=== PATIENT | male | born 1945 | race Caucasian/White ===

== ENCOUNTER 2018-07-20 10:35 | Outpatient (REF) | payer MEDICARE, SELFPAY ==
[2018-07-20 20:52] LABS: ALT 52 U/L (12-78); AST 29 U/L (15-37); Albumin 3.7 g/dL (3.4-5.0); Alkaline Phosphatase 57 U/L (46-116); Anion Gap 5.2 mmol/L (3-11); BUN 22 mg/dL (7-18); Bilirubin, Total 0.6 mg/dL (0.2-1.0); CO2 29.8 mmol/L (21.0-32.0); CREATININE 1.25 mg/dL (0.70-1.30); Calcium 9.1 mg/dL (8.5-10.1); Chloride 101 mmol/L (98-107); Cholesterol 146 mg/dL (50-200); Estimated GFR 56.94 (mL/min/1.73m2); Glucose 94 mg/dL (70-100); HDL Cholesterol 46 mg/dL (40-60); LDL CHOLESTEROL 90 mg/dL (<100); Magnesium 1.9 mg/dL (1.8-2.4); Potassium 4.4 mmol/L (3.5-5.1); Sodium 136 mmol/L (136-145); Total Protein 7.2 g/dL (6.4-8.2); Triglyceride 131 mg/dL (30-150)
== END 2018-07-20 10:55 ==
LOC: NCHCN 10:35
PROVIDERS: PCP Nurse Practitioner Family; Visit Provider Specialist/Technologist Athletic Trainer
DX: I10 Essential (primary) hypertension (principal); E78.5 Hyperlipidemia, unspecified; K21.9 Gastro-esophageal reflux disease without esophagitis
CPT/HCPCS: 80053; 80061; 83721; 83735

== ENCOUNTER 2019-10-18 09:36 | Outpatient (REF) | payer OTHER, SELFPAY ==
[2019-10-18 20:58] LABS: HCT 46.4 % (40.0-50.0); Mean Corp. HGB Concentration 32.3 g/dL (32.0-36.0); Mean Corpuscular Volume 95.9 fL (80-95); Mean Platelet Volume 11.9 fL (8.0-11.0); Platelet Count 235 x1000/uL (130-400); RBC 4.84 m/cumm (4.50-6.00); RBC Distribution Width 12.7 % (11.8-14.1); White Blood Cell Count 5.53 k/cumm (4.4-10.8)
[2019-10-18 21:03] LABS: ALT 36 U/L (16-63); AST 22 U/L (15-37); Albumin 3.7 g/dL (3.4-5.0); Alkaline Phosphatase 52 U/L (46-116); Anion Gap 5.2 mmol/L (3-11); BUN 18 mg/dL (7-18); Bilirubin, Total 0.5 mg/dL (0.2-1.0); CO2 31.8 mmol/L (21.0-32.0); CREATININE 1.21 mg/dL (0.70-1.30); Calcium 9.3 mg/dL (8.5-10.1); Calculated LDL 85 mg/dL; Chloride 100 mmol/L (98-107); Cholesterol 152 mg/dL (<200); Estimated GFR 58.95 (mL/min/1.73m2); Glucose 106 mg/dL (74-106); HDL Cholesterol 48 mg/dL (40-60); Magnesium 1.9 mg/dL (1.8-2.4); Potassium 4.6 mmol/L (3.5-5.1); Sodium 137 mmol/L (136-145); Total Protein 7.2 g/dL (6.4-8.2); Triglyceride 95 mg/dL (<150)
[2019-10-22 11:21] LABS: PSA, Screening 0.4 ng/mL (0.0-6.5)
== END 2019-10-18 09:56 ==
LOC: NCHCN 09:36
PROVIDERS: PCP Specialist/Technologist Athletic Trainer; Visit Provider Specialist/Technologist Athletic Trainer
DX: I10 Essential (primary) hypertension (principal); E78.5 Hyperlipidemia, unspecified; K21.9 Gastro-esophageal reflux disease without esophagitis; N40.0 Benign prostatic hyperplasia without lower urinary tract symptoms; Z12.5 Encounter for screening for malignant neoplasm of prostate
CPT/HCPCS: 80053; 80061; 84153; 85027; 83735

== ENCOUNTER 2020-10-15 14:08 | Outpatient (REF) | payer OTHER, SELFPAY ==
[2020-10-17 01:47] LABS: COVID-19 RT-PCR UVMMC Result Positive (Negative)
== END 2020-10-15 14:28 ==
LOC: NCHCN 14:08
PROVIDERS: PCP Specialist/Technologist Athletic Trainer; Visit Provider Nurse Practitioner Family
DX: J06.9 Acute upper respiratory infection, unspecified (principal)
CPT/HCPCS: U0003

== ENCOUNTER 2020-11-19 13:30 | Outpatient (REF) | payer OTHER, SELFPAY ==
[2020-11-19 20:38] LABS: HCT 46.5 % (40.0-50.0); HGB 15.6 g/dL (13.5-17.5); MCH 31.5 pg (27.0-33.0); MCHC 33.5 % (32.0-36.0); MCV 93.8 fL (80-95); MPV 11.7 fL (8.0-11.0); Platelet Count 231 10^3/uL (130-400); RBC 4.96 10^6/uL (4.36-5.78); RDW 12.5 % (11.8-14.1); RDW-SD 43.1 fL; WBC 6.21 10^3/uL (4.4-10.8)
[2020-11-19 21:03] LABS: Hemoglobin A1C 6.1 % (<5.7)
[2020-11-19 21:11] LABS: Anion Gap 8.7 mmol/L (3-11); BUN 18 mg/dL (7-18); CO2 27.3 mmol/L (21.0-32.0); CREATININE 1.33 mg/dL (0.70-1.30); Calcium 9.7 mg/dL (8.5-10.1); Calculated LDL 76 mg/dL (<100); Chloride 99 mmol/L (98-107); Cholesterol 152 mg/dL (<200); Estimated GFR 52.71 (mL/min/1.73m2); Glucose 122 mg/dL (74-106); HDL Cholesterol 47 mg/dL (40-60); Potassium 4.3 mmol/L (3.5-5.1); Sodium 135 mmol/L (136-145); Triglyceride 146 mg/dL (<150)
== END 2020-11-19 13:50 ==
LOC: NCHCN 13:30
PROVIDERS: PCP Specialist/Technologist Athletic Trainer; Visit Provider Nurse Practitioner Family
DX: R73.03 Prediabetes (principal); I10 Essential (primary) hypertension; E78.5 Hyperlipidemia, unspecified
CPT/HCPCS: 80048; 80061; 85027; 83036

== ENCOUNTER 2021-11-23 14:57 | Outpatient (REF) | payer MEDICARE, SELFPAY ==
[2021-11-23 14:12] LABS: Anion Gap 7.9 mmol/L (3-11); BUN 17 mg/dL (7-18); CO2 32.1 mmol/L (21.0-32.0); CREATININE 1.2 mg/dL (0.70-1.30); Calcium 9.8 mg/dL (8.5-10.1); Chloride 99 mmol/L (98-107); Estimated GFR 59.18 (mL/min/1.73m2); Glucose 118 mg/dL (74-106); Potassium 4.2 mmol/L (3.5-5.1); Sodium 139 mmol/L (136-145)
[2021-11-23 14:17] LABS: Hemoglobin A1C 6.3 % (<5.7)
[2021-11-23 22:36] LABS: PSA, Screening 0.3 ng/mL (0.0-6.5)
== END 2021-11-23 14:58 | disposition home or self-care (01) ==
LOC: NCHCN 14:57
PROVIDERS: PCP Specialist/Technologist Athletic Trainer; Visit Provider Nurse Practitioner Family
DX: R73.03 Prediabetes (principal); I10 Essential (primary) hypertension; N39.41 Urge incontinence; Z12.5 Encounter for screening for malignant neoplasm of prostate
CPT/HCPCS: 80048; 84153; 83036

== ENCOUNTER 2022-08-23 18:58 | Outpatient (REF) | payer OTHER, SELFPAY ==
[2022-08-23 17:58] LABS: Anion Gap 7.3 mmol/L (3-11); BUN 18 mg/dL (7-18); CO2 30.7 mmol/L (21.0-32.0); CREATININE 1.3 mg/dL (0.70-1.30); Calcium 9.5 mg/dL (8.5-10.1); Chloride 99 mmol/L (98-107); Estimated GFR 57.29 (mL/min/1.73m2); Glucose 105 mg/dL (74-106); Potassium 4.5 mmol/L (3.5-5.1); Sodium 137 mmol/L (136-145)
[2022-08-23 18:19] LABS: Hemoglobin A1C 6.1 % (<5.7)
== END 2022-08-23 18:59 | disposition home or self-care (01) ==
LOC: NCHCN 18:58
PROVIDERS: PCP Specialist/Technologist Athletic Trainer; Visit Provider Nurse Practitioner Family
DX: R73.03 Prediabetes (principal); I10 Essential (primary) hypertension
CPT/HCPCS: 80048; 83036

== ENCOUNTER 2022-08-30 03:36 | Outpatient (CLI) | payer OTHER, SELFPAY ==
[2022-08-30] MEDS: Inhaler, Assist Device 1 EACH MC (09:20)
[2022-08-30] MEDS: Albuterol HFA 18 GM 200 PUFF INH IH (09:20)
--- NOTE | 2022-08-30 14:57 | W.PFT ---
Date of service: 08/30/22 Time of Service: 08:08 Pulmonary Function Test Result Requesting Provider Linette Funk Indications: COPD, QUEZADA Interpretation Spirometry: There is moderate airflow limitation. There is a very significant bronchodilator response. The FVC is low. Lung Volumes: There is significant hyperinflation and air trapping. Diffusion Capacity: Normal diffusion Airway Pressure: Increased airways resistance. Impression There is moderate airflow limitation with a bronchodilator response. There is a normal diffusion but with air trapping. The low FVC is due to significant obstruction.This likely represents COPD (with chronic bronchitis) or chronic bronchitis and asthma together (ACOS). Note: When compared to 06/22/10, the FEV1 and FVC is reduced. Clinical Correlation therefore is recommended.
== END 2022-08-30 03:37 | disposition home or self-care (01) ==
LOC: RT 03:36
PROVIDERS: PCP Nurse Practitioner Family; Visit Provider Nurse Practitioner Family
DX: J44.9 Chronic obstructive pulmonary disease, unspecified (principal); R06.09 Other forms of dyspnea
CPT/HCPCS: 94060; 94726; 94729

== ENCOUNTER 2023-01-06 15:32 | Observation (INO) | payer OTHER, SELFPAY ==
[2023-01-06] VITALS (47 sets, daily range): BP systolic 85–199; BP diastolic 48–119; PULSE 79–141; RESP 4–32; TEMP 36.8; O2SAT 87–99
--- NOTE | 2023-01-06 15:30 | RT.EKG_ITS ---
APPROVED REPORT Exam: Resting ECG Reason for Exam: sob Patient Location: E HR:84 bpm ECG Measurements Heart Rate 84 AXIS WY 179 P 41 QRSd 90 QRS -78 QT 385 T 37 QTc 456 Conclusion Sinus rhythm...normal P axis, V-rate 60- 99 Left anterior fascicular block...axis(240,-40), init forces inf
[2023-01-06] MEDS: Albuterol/Ipratropium 3 ML UPD VIAL ×2 (15:45→15:57)
--- NOTE | 2023-01-06 15:45 | DI.RAD_ITS ---
Exam(s) XR PORTABLE CHEST AP EXAM: XR PORTABLE CHEST AP CLINICAL HISTORY: SOB, COPD TECHNIQUE: 2D digital imaging was performed of the chest. Three images were obtained. AP views wer e obtained. COMPARISON: CR CHEST 2 VIEWS PA,LAT from 06/24/2010 FINDINGS: MEDIASTINUM: Normal. HEART: Normal. PULMONARY VASCULATURE: Normal. LUNGS: Clear. PLEURAL SPACE: No pleural effusion or pneumothorax. BONE:Within normal limits for the patient's age. OTHER FINDINGS:Normal. IMPRESSION: No acute pulmonary findings. DATA REPOSITORY: RADIATION DOSE DELIVERED:
--- NOTE | 2023-01-06 15:48 | W.ED.GENAD ---
Discharge Plan Disposition Patient Disposition: Admit to [facility] Condition: Stable Discharge Details Chief Complaint: SOB Clinical Impression: COPD exacerbation Primary Care Provider: Linette Funk ED Provider: Gera Johnston Home Meds and New Rx's Prescriptions: No Action (DME) CPAP 0 .ROUTE .MEDSUPPLY fluticasone propionate [Flovent HFA] 220 mcg/actuation HFA aerosol inhaler 2 puff inhalation BID terazosin 1 mg capsule 1 mg PO QHS albuterol sulfate [Ventolin HFA] 90 mcg/actuation HFA aerosol inhaler 2 puff inhalation 6XD aspirin 325 mg tablet 325 mg PO DAILY guaifenesin 400 mg tablet 400 mg PO BID simvastatin 20 MG tablet 20 mg PO HS lisinopril 30 MG tablet 30 mg PO DAILY AM ranitidine HCl 300 MG tablet 300 mg PO BID hydrochlorothiazide 25 MG tablet 25 mg PO QAM escitalopram oxalate [Lexapro] 10 MG tablet 10 mg PO HS citalopram 40 MG tablet 20 mg PO QAM omeprazole [Prilosec] 40 MG capsule,delayed release(DR/EC) 40 mg PO QAM Medical Decision Making 77-year-old male presents from home with his . He was seen at his local office with 2 to 3 weeks of cough and congestion, shortness of breath that worsened over the past 2 days. He is found to be hypoxic and placed on oxygen prior to transfer. He arrives to the ER oxygenating 89 to 91% on room air. Patient arrives with bilateral wheezing present on exam. He has diminished lung ybarra throughout. Differential diagnosis includes COPD exacerbation, pneumonia, pneumonitis. Patient IV access established, screening labs obtained he is placed on a fun house attendant. Patient given Solu-Medrol and DuoNeb updraft x3. Chest x-ray is unremarkable. Patient's labs reveal a white count of 7, hematocrit 52, platelets 234. Chemistries reassuring. Troponin is negative. Viral swabs are negative as well. Patient is somewhat improved following steroids and inhaled beta agonist therapy. He is requiring 2 L of oxygen. He will require admission for further management. We will discuss the case with hospitalist team. HPI General Mode of arrival: ambulatory. Date/Time Provider Initiated Documentation: 01/06/23 15:37. Limitations to Documentation: no limitations. Information obtained by: patient and family. History of Present Illness 77 year old M presents to the emergency department with the chief complaint of Shortness of breath, URI symptoms for 2 weeks, described as moderate, and is localized to the chest. Patient reports no radiation. Patient started experiencing this day(s) and it has been constant. No relieving factors improve symptom(s), No exacerbating factors reported . Patient notes cough and shortness of breath; denies chest pain, fever/chills and syncope. Patient did receive the following treatments prior to arrival, none Related Data Home Medications Medication Instructions Recorded Confirmed citalopram 40 mg tablet 20 mg PO QAM 05/22/14 05/22/14 escitalopram oxalate 10 mg tablet 10 mg PO HS 05/22/14 05/22/14 (Lexapro) hydrochlorothiazide 25 mg tablet 25 mg PO QAM 05/22/14 05/22/14 lisinopril 30 mg tablet 30 mg PO DAILY AM 05/22/14 05/22/14 omeprazole 40 mg capsule,delayed 40 mg PO QAM 05/22/14 05/22/14 release (Prilosec) ranitidine HCl 300 mg tablet 300 mg PO BID 05/22/14 05/22/14 simvastatin 20 mg tablet 20 mg PO HS 05/22/14 05/22/14 CPAP 08/27/22 albuterol sulfate 90 mcg/actuation 2 puff inhalation 6XD 08/27/22 aerosol inhaler (Ventolin HFA) fluticasone propionate 220 2 puff inhalation BID 08/27/22 mcg/actuation HFA aerosol inhaler (Flovent HFA) terazosin 1 mg capsule 1 mg PO QHS 08/27/22 aspirin 325 mg tablet 325 mg PO DAILY 11/29/22 guaifenesin 400 mg tablet 400 mg PO BID 11/29/22 Allergies Allergy/AdvReac Type Severity Reaction Status Date / Time twisted tea Allergy Severe Hives Uncoded 05/22/14 17:11 General Stated Complaint: SOB GARFIELD: 3 Review of Systems Narrative: 6 systems reviewed and otherwise negative. PFSH All Active Problems (Updated 01/06/23 @ 18:34 by Gera Johnston MD) COPD exacerbation (Acute) BPH (benign prostatic hyperplasia) (Chronic) Chronic low back pain (Chronic) Nocturia (Acute) Hyperlipidemia (Acute) Sleep apnea, obstructive (Chronic) Chronic GERD (Acute) Hoarseness (Acute) COPD (chronic obstructive pulmonary disease) (Chronic) Hypertensive disorder (Chronic) Cancer (Acute) Larynx Alcohol abuse (Chronic) Panic disorder (Acute) Obesity (Chronic) Prediabetes (Acute) Lower back pain (Acute) Urinary incontinence (Acute) Medical History (Updated 01/06/23 @ 18:34 by Gera Johnston MD) History of BPH Social History (Updated 08/27/22 @ 09:44 by Bobbi Cardoza) Smoking/Tobacco Use Status: Former Tobacco Use Quit Date: 10/24/94 Smoking risk assessment performed?: Yes Alcohol Intake: current Alcohol Intake frequency: holidays/special occasions only Drug use: Never Substance use type: does not use Do you feel safe at home: Yes Do you feel safe in your relationship?: Yes Exam Narrative Exam Narrative: GEN: awake, alert, oriented 3. Pleasant, well groomed, interactive. HEAD: Normocephalic, atraumatic ENT: Mucous membranes dry, oropharynx unremarkable, External ear exam unremarkable EYES: PERRL, EOMI NECK: Full ROM, no CAREY, no menigismus CHEST/RESP: Distant, bilateral end expiratory wheeze present CARDIOVASCULAR: Distant, regular. 2+ Rad pulse bilateral ABDOMEN: Soft, nontender, no mass. +Bowel sounds EXT: Full ROM Neuro: Grossly normal neurologic exam, conversant, interactive. Psych: Speech fluent, thoughts congruent, affect normal Course Vital Signs Vital signs: Vital Signs Pulse 84 01/06/23 15:42 Respiratory Rate 30 H 01/06/23 15:42 Blood Pressure 103/74 01/06/23 15:42 Pulse Oximetry 99 01/06/23 15:42 Pulse 84 01/06/23 15:42 Respiratory Rate 30 H 01/06/23 15:42 Blood Pressure 103/74 01/06/23 15:42 Blood Pressure Position Sitting 01/06/23 15:42 Pulse Oximetry 99 01/06/23 15:42 Oxygen Delivery Method Room Air 01/06/23 15:42 Oxygen Flow Rate 0 01/06/23 15:42 Pain Level 0 01/06/23 15:42
[2023-01-06] MEDS: Albuterol/Ipratropium 3 ML UPD VIAL UPD ×2 (16:03→19:13)
[2023-01-06] MEDS: methylPREDNISolone SUCC 125 MG VIAL IVP (16:20)
[2023-01-06 16:32] LABS: Abs Immature Grans 0.02 10^3/uL (0.0-0.06); Absolute Basophil Count 0.07 10^3/uL (0.0-0.2); Absolute Eosinophil Count 0.28 10^3/uL (0.0-0.7); Absolute Lymphocyte Count 2.11 10^3/uL (1.2-3.4); Absolute Monocyte Count 0.73 10^3/uL (0.1-0.8); Absolute Neutrophil Count 4.72 10^3/uL (1.2-6.7); Basophils % 0.9; Eosinophils % 3.5; HGB 17.1 g/dL (13.5-17.5); Immature Grans % 0.3; Lymphocytes % 26.6; MCH 31.4 pg (27.0-33.0); MCHC 32.9 % (32.0-36.0); MCV 95 fL (80-95); Monocytes % 9.2; Neutrophils % 59.5; Platelet Count 234 10^3/uL (130-400); RBC 5.45 10^6/uL (4.36-5.78); RDW 12.8 % (11.8-14.1); RDW-SD 45.5 fL; WBC 7.93 10^3/uL (4.4-10.8)
[2023-01-06 16:59] LABS: ALT 21 U/L (16-63); AST 16 U/L (15-37); Albumin 3.9 g/dL (3.4-5.0); Alkaline Phosphatase 64 U/L (46-116); Anion Gap 6.3 mmol/L (3-11); BUN 11 mg/dL (7-18); CO2 32.7 mmol/L (21.0-32.0); CREATININE 1.2 mg/dL (0.70-1.30); Calcium 10.2 mg/dL (8.5-10.1); Chloride 99 mmol/L (98-107); Estimated GFR 63.07 (mL/min/1.73m2); Glucose 118 mg/dL (74-106); Potassium 3.5 mmol/L (3.5-5.1); Sodium 138 mmol/L (136-145); Total Protein 8.5 g/dL (6.4-8.2); Troponin I < 50 ng/L (<or=60)
[2023-01-06 17:09] LABS: COVID-19 PCR Negative (Negative); Influenza A PCR Negative (Negative); Influenza B PCR Negative (Negative); RSV PCR Negative (Negative)
[2023-01-06 17:12] LABS: Source Nasopharynx
--- NOTE | 2023-01-06 17:42 | DI.VRAD_ITS ---
PROCEDURE INFORMATION: Exam: XR Chest Exam date and time: 01/06/2023 5:02 PM Age: 77 years old Clinical indication: Shortness of breath and other: SOB, copd TECHNIQUE: Imaging protocol: Radiologic exam of the chest. Views: 1 view. COMPARISON: No relevant prior studies available. FINDINGS: Lungs: Unremarkable. No consolidation. Pleural spaces: Unremarkable. No pleural effusion. No pneumothorax. Heart/Mediastinum: Unremarkable. No cardiomegaly. Bones/joints: Mild degenerative changes of the osseous structures. IMPRESSION: No acute findings. Dictated and Authenticated by: Braulio Hernandez MD. Ordering:MOMO Boss MD
[2023-01-06 19:32] LABS: Troponin I < 50 ng/L (<or=60)
[2023-01-06 20:34] LABS: ALT 21 U/L (16-63); AST 16 U/L (15-37); Albumin 3.9 g/dL (3.4-5.0); Alkaline Phosphatase 60 U/L (46-116); Anion Gap 8.2 mmol/L (3-11); BUN 14 mg/dL (7-18); Bilirubin, Total 0.9 mg/dL (0.2-1.0); CO2 28.8 mmol/L (21.0-32.0); CREATININE 1.6 mg/dL (0.70-1.30); Calcium 10.2 mg/dL (8.5-10.1); Chloride 99 mmol/L (98-107); Estimated GFR 44.65 (mL/min/1.73m2); Glucose 193 mg/dL (74-106); Potassium 3.4 mmol/L (3.5-5.1); Sodium 136 mmol/L (136-145); Total Protein 8.4 g/dL (6.4-8.2)
[2023-01-06] MEDS: Enoxaparin 40 MG/0.4 ML SYR SC (21:01)
--- NOTE | 2023-01-06 21:28 | W.PM.HP.N ---
Date of service: 01/06/23 Time of Service: 21:28 Assessment and Plan Assessment and plan (1) COPD exacerbation: Status: Acute Assessment and plan: Given IV steroids and nebs in the ED; continue. Bronchitis likely; viral vs atypical. Doxycycline oral initiated. Previous smoker; quit in 1994. Obesity likely causing some atelectasis. IS ordered. (2) Hyperlipidemia: Status: Acute Assessment and plan: Cont simvistatin. (3) Sleep apnea, obstructive: Status: Chronic Assessment and plan: CPAP. (4) Hoarseness: Status: Acute Assessment and plan: H/O laryngeal CA. (5) Hypertensive disorder: Status: Chronic Assessment and plan: Cont lisinopril (also on terazosin for BPH) and monitor. (6) Morbid obesity: Status: Acute Assessment and plan: Likely cause of his LUIS. He endorses previously weighing 360#. Not dieting. He should discuss wt loss with his PCP to see if he is up-to-date on cancer screening. History of Present Illness History of Present Illness Chief Complaint: Shortness of breath. Narrative: Mr Gerber is a 77 yo male with a PMH of COPD, HLD, LUIS, HTN, laryngeal cancer, alcohol abuse, panic disorder, obesity prediabetes, BPH. He presented to the ED with increasing shortness of breath. He endorsed respiratory sxs / chest congestion for appx 2 weeks. No fever/chills. No chest pain/palpitations. No purulent sputum. EMS found him to be hypoxic with O2 saturations in the low 80's. He does not use supplemental O2 at home. He was transported on supp. O2. In the ED his RA oxygen saturations were between 89-91%. CXR w/o acute findings. WBC count normal. Chemistries normal. Troponin neg. Fluvid negative. He was given Duoneb txs and IV solumedrol. Provided supplemental O2 at 2L per NC. Review of Systems All systems reviewed & are unremarkable except as noted in HPI and below PFSH All Active Problems (Updated 01/06/23 @ 22:10 by Antonio Bower MD) Morbid obesity (Acute) COPD exacerbation (Acute) BPH (benign prostatic hyperplasia) (Chronic) Chronic low back pain (Chronic) Nocturia (Acute) Hyperlipidemia (Acute) Sleep apnea, obstructive (Chronic) Chronic GERD (Acute) Hoarseness (Acute) COPD (chronic obstructive pulmonary disease) (Chronic) Hypertensive disorder (Chronic) Cancer (Acute) Larynx Alcohol abuse (Chronic) Panic disorder (Acute) Obesity (Chronic) Prediabetes (Acute) Lower back pain (Acute) Urinary incontinence (Acute) Medical History History of BPH Social History Smoking/Tobacco Use Status: Former Tobacco Use Quit Date: 10/24/94 Smoking risk assessment performed?: Yes Alcohol Intake: current Alcohol Intake frequency: holidays/special occasions only Drug use: Never Substance use type: does not use Do you feel safe at home: Yes Do you feel safe in your relationship?: Yes Meds Allergies and Home Medications Allergies Allergy/AdvReac Type Severity Reaction Status Date / Time twisted tea Allergy Severe Hives Uncoded 01/06/23 18:35 Home Medications Medication Instructions Recorded Confirmed Type citalopram 40 mg tablet 20 mg PO QAM 05/22/14 01/06/23 History lisinopril 30 mg tablet 30 mg PO DAILY AM 05/22/14 01/06/23 History omeprazole 40 mg capsule,delayed 40 mg PO QAM 05/22/14 01/06/23 History release (Prilosec) simvastatin 20 mg tablet 20 mg PO HS 05/22/14 01/06/23 History CPAP 08/27/22 01/06/23 History albuterol sulfate 90 mcg/actuation 2 puff inhalation 6XD 08/27/22 01/06/23 History aerosol inhaler (Ventolin HFA) fluticasone propionate 220 2 puff inhalation BID 08/27/22 01/06/23 History mcg/actuation HFA aerosol inhaler (Flovent HFA) terazosin 1 mg capsule 1 mg PO QHS 08/27/22 01/06/23 History aspirin 325 mg tablet 325 mg PO DAILY 11/29/22 01/06/23 History Exam Narrative Exam Narrative: GEN: Sitting on edge of bed. Pleasant, interactive. HEAD: Normocephalic, atraumatic ENT: Mucous membranes dry, hoarse voice. EYES: PERRL, EOMI, sclera clear. NECK: Full ROM, No JVD CHEST/RESP: Distant breath sounds. No wheezes, rhonchi. Takes deep breaths during conversation but holds long conversations. CARDIOVASCULAR: RRR, S1, S2. ABDOMEN: Soft, obese, nontender, no mass. +Bowel sounds EXT: No pedal edema, calf tenderness. Neuro: Grossly normal neurologic exam, conversant, interactive. No focal motor deficits. Psych: Affect normal. l Results Labs 01/06/23 16:20 01/06/23 20:11 Labs: Laboratory Results - last 24 hr 01/06/23 01/06/23 01/06/23 16:07 16:20 16:20 WBC 7.93 RBC 5.45 Hgb 17.1 Hct 52.0 H MCV 95 MCH 31.4 MCHC 32.9 RDW 12.8 Plt Count 234 MPV 11.0 Immature Gran % 0.3 Neutrophils % 59.5 Lymphocytes % 26.6 Monocytes % 9.2 Eosinophils % 3.5 Basophils % 0.9 Nucleated RBC % 0.0 Absolute Neutrophils 4.72 Absolute Lymphocytes 2.11 Absolute Monocytes 0.73 Absolute Eosinophils 0.28 Absolute Basophils 0.07 Sodium 138 Potassium 3.5 Chloride 99 Carbon Dioxide 32.7 H Anion Gap 6.3 BUN 11 Creatinine 1.2 Est GFR (CKD-EPI 2020) 63.07 Glucose 118 H Calcium 10.2 H Magnesium 2.0 Total Bilirubin 1.0 AST 16 ALT 21 Alkaline Phosphatase 64 Troponin I < 50 Total Protein 8.5 H Albumin 3.9 COVID-19 Source Nasopharynx SARS-CoV-2 (PCR) Negative Influenza Type A (PCR) Negative Influenza Type B (PCR) Negative RSV (PCR) Negative 01/06/23 01/06/23 18:55 20:11 WBC RBC Hgb Hct MCV MCH MCHC RDW Plt Count MPV Immature Gran % Neutrophils % Lymphocytes % Monocytes % Eosinophils % Basophils % Nucleated RBC % Absolute Neutrophils Absolute Lymphocytes Absolute Monocytes Absolute Eosinophils Absolute Basophils Sodium 136 Potassium 3.4 L Chloride 99 Carbon Dioxide 28.8 Anion Gap 8.2 BUN 14 Creatinine 1.6 H Est GFR (CKD-EPI 2020) 44.65 Glucose 193 H Calcium 10.2 H Magnesium Total Bilirubin 0.9 AST 16 ALT 21 Alkaline Phosphatase 60 Troponin I < 50 Total Protein 8.4 H Albumin 3.9 COVID-19 Source SARS-CoV-2 (PCR) Influenza Type A (PCR) Influenza Type B (PCR) RSV (PCR) Last Vital Signs Temp 36.8 C 01/06/23 20:26 Pulse 102 H 01/06/23 20:26 Resp 18 01/06/23 20:26 BP 90/61 L 01/06/23 20:26 Pulse Ox 95 01/06/23 20:26 Time Spent Time spent with Patient: 40-54 minutes Time was spent: preparing to see the patient(eg.review tests), obtaining and/or reviewing separately otained hiistory, ordering medications,tests, procedures, indepentently interpreting results and counseling the patient
[2023-01-06] MEDS: methylPREDNISolone SUCC 40 MG VIAL IVP (21:31)
[2023-01-06] MEDS: Normal Saline Flush 10 ML SYR IVP (21:31)
[2023-01-06] MEDS: Simvastatin 20 MG TAB PO (21:32)
[2023-01-06] MEDS: Doxycycline Hyclate 100 MG CAP PO (21:42)
[2023-01-07] VITALS (18 sets, daily range): BP systolic 95–163; BP diastolic 58–87; PULSE 73–103; RESP 4–24; TEMP 36.1–37.1; O2SAT 91–95
[2023-01-07] MEDS: methylPREDNISolone SUCC 40 MG VIAL IVP ×2 (05:44→14:26)
[2023-01-07] MEDS: Normal Saline Flush 10 ML SYR IVP ×3 (05:45→14:26)
[2023-01-07 07:32] LABS: Anion Gap 7.3 mmol/L (3-11); BUN 22 mg/dL (7-18); CO2 26.7 mmol/L (21.0-32.0); CREATININE 1.3 mg/dL (0.70-1.30); Calcium 10.1 mg/dL (8.5-10.1); Chloride 101 mmol/L (98-107); Estimated GFR 57.29 (mL/min/1.73m2); Glucose 167 mg/dL (74-106); Potassium 4.3 mmol/L (3.5-5.1); Sodium 135 mmol/L (136-145)
[2023-01-07 08:29] LABS: Lab Add On Test DONE
[2023-01-07] MEDS: Aspirin 325 MG TAB PO (08:32)
[2023-01-07] MEDS: Lisinopril 10 MG TAB 30 MG PO (08:32)
[2023-01-07] MEDS: Citalopram 20 MG TAB PO (08:32)
[2023-01-07] MEDS: Omeprazole 20 MG CAPCR PO (08:32)
[2023-01-07] MEDS: Doxycycline Hyclate 100 MG CAP PO ×2 (10:13→21:19)
[2023-01-07 10:25] LABS: Procalcitonin < 0.1 ng/mL
[2023-01-07] MEDS: Ipratropium 0.5 MG/2.5 ML UPD VIAL 0.25 MG UPD (10:25)
[2023-01-07] MEDS: Levalbuterol 0.63 MG/3 ML UPD VIAL UPD ×3 (12:51→23:19)
[2023-01-07] MEDS: Ipratropium 0.5 MG/2.5 ML UPD VIAL UPD ×3 (12:52→23:18)
--- NOTE | 2023-01-07 15:08 | PDOC.CMIN ---
- If Service Date Differs Date of service: 01/07/23 Time of Service: 15:08 Care Management Initial Assess REASON FOR HOSPITALIZATION:: COPD Exacerbation PAST MEDICAL HISTORY/PAST SURGICAL HISTORY:: COPD, HLD, LUIS, HTN, laryngeal cancer, alcohol abuse, panic disorder, obesity prediabetes, BPH PREVIOUS FUNCTIONAL STATUS/SOCIAL/FAMILY SUPPORTS:: Resides in [place], [place] with his , Polly. He is independent at baseline in the community. CURRENT FUNCTIONAL STATUS:: Darion remains on oxygen he continues to work to breathe. Home CPAP set up by respiratory for tonight, CM continues to follow. ADVANCE DIRECTIVES:: None on file. Has patient been provided with info about the portal/API?: Yes Did the patient sign up for the portal?: Yes CODE STATUS:: Full Code INSURANCE COVERAGE / FINANCIAL ISSUES:: [employer] CURRENT HOME/COMMUNITY SERVICES/EQUIPMENT:: Home CPAP PRIMARY CARE PHYSICIAN:: Linette Funk POTENTIAL DISCHARGE NEEDS:: Evaluations for further needs, possible new O2. PATIENT/FAMILY EDUCATION NEEDS:: Review discharge instructions, discuss Ask Me Three. ANTICIPATED BARRIERS TO DISCHARGE:: None identified. TRANSPORTATION:: Via private vehicle with his . PLAN:: Darion may require home O2 for discharge; respiratory continues to follow. He remains inpatient and continues to be closely monitored. Anticipate he will discharge home, follow up with his PCP and plan of care as prescribed and transport via private vehicle with his . CM continues to follow.
[2023-01-07] MEDS: Polyethylene Glycol 3350 17 GM PACKET PO (18:04)
--- NOTE | 2023-01-07 19:06 | NUR.NOTE ---
Nursing Note:Patient's daughter reported she accidentally hit her father's right heel off the bedside table base which lacerated his heel. His wound is the size of a ballpoint pen tip. Nurse cleaned, and put a band-aid on his heel. CC notified.
--- NOTE | 2023-01-07 19:32 | PGE_ITS ---
Date of Service Date of service: 01/07/23 Time of Service: 19:00 Assessment and Plan Assessment and plan (1) Vocal cord dysfunction: Status: Acute Assessment and plan: Based on my exam today, I am strongly suspicious of a vocal cord dysfunction. The patient does have a h/o for it w/ h/o laryngeal ca s/p excision and vocal cord issues following that. Will trial lorazepam. (2) COPD exacerbation: Status: Acute Assessment and plan: I suspect that there is a component of a bacterial bronchitis, though procalcitonin was negative. Change steroids to PO, continue scheduled + prn nebs, asmanex. Continue doxycycline for now. Encouraged the patient to expectorate, added mucinex. Obtain sputum culture. Add acapella to pulmonary toilet. H/o tobacco abuse (quit in 1994). I suspect that there is a restrictive component to his illness as well. (3) Hypoxia: Status: Acute Assessment and plan: Likely due to a combination of 1 and 2. Wean O2 as tolerated. (4) Sleep apnea, obstructive: Status: Chronic Assessment and plan: Continue CPAP. (5) Hoarseness: Status: Chronic Assessment and plan: H/O laryngeal CA. I suspect that the patient has vocal cord paralysis which might be contributing to his wheezing. (6) Hyperlipidemia: Status: Acute Assessment and plan: Continue simvistatin. (7) Hypertensive disorder: Status: Chronic Assessment and plan: The BP is actually low on last check. Will recheck; consider holding antihypertensives. (8) Morbid obesity: Status: Chronic Assessment and plan: Suspect he likely also has OHS. F/u w/ PCP in regards to lifestyle changes and weight loss. (9) DVT prophylaxis: Status: Acute Assessment and plan: SC enoxaparin (10) Discharge planning issues: Status: Acute Assessment and plan: Full code Continues to require hospitalization Subjective Subjective Interval history since last seen: Reports that his shortness of breath and wheezing are better. The cough is productive. He does not know the color of his sputum because he has been swallowing it. We discussed how he shouldn't. He has been working with IS. Denies dizziness, chest pain, nausea. He is on 2L of O2 saturating 95%. Exam Narrative Exam Narrative: General: Pleasant hoarse sounding middle-aged obese male, A&Ox3, wheezing audibly, does not appear dyspneic/tachypneic HEENT: EOMI, MMM Heart: RRR, no m/r/g Lungs: wheezing primarily heard in the neck; upper lung field wheezing resolves with coughing Abdomen: soft, nontender, nondistended Extremities: trace edema BLEs Objective Last Vital Signs Temp 36.8 C 01/07/23 15:45 Pulse 90 01/07/23 18:25 Resp 16 01/07/23 18:25 BP 95/58 L 01/07/23 15:45 Pulse Ox 95 01/07/23 18:25 Laboratory Results - last 24 hr 01/06/23 01/06/23 01/07/23 18:55 20:11 06:50 Sodium 136 135 L Potassium 3.4 L 4.3 Chloride 99 101 Carbon Dioxide 28.8 26.7 Anion Gap 8.2 7.3 BUN 14 22 H Creatinine 1.6 H 1.3 Est GFR (CKD-EPI 2020) 44.65 57.29 Glucose 193 H 167 H Calcium 10.2 H 10.1 Total Bilirubin 0.9 AST 16 ALT 21 Alkaline Phosphatase 60 Troponin I < 50 Total Protein 8.4 H Albumin 3.9 Procalcitonin Add-On Test Request 01/07/23 01/07/23 06:50 09:37 Sodium Potassium Chloride Carbon Dioxide Anion Gap BUN Creatinine Est GFR (CKD-EPI 2020) Glucose Calcium Total Bilirubin AST ALT Alkaline Phosphatase Troponin I Total Protein Albumin Procalcitonin < 0.1 Add-On Test Request DONE Time Spent with Patient Time Spent with Patient: 35-49 minutes Time was spent: preparing to see the patient(eg.review tests), obtaining and/or reviewing separately otained hiistory, ordering medications,tests, procedures, referring, communicating with other health care support representative, indepentently interpreting results, counseling the patient and care coordination
[2023-01-07] MEDS: Enoxaparin 40 MG/0.4 ML SYR SC (19:47)
[2023-01-07] MEDS: guaiFENesin 600 MG TABCR PO (19:47)
[2023-01-07] MEDS: LORazepam 0.5 MG TAB PO (19:47)
[2023-01-07] MEDS: Mometasone 220 MCG 14 DOSE INHALER 2 PUFF IH (20:05)
[2023-01-07] MEDS: Simvastatin 20 MG TAB PO (21:18)
[2023-01-08] VITALS (12 sets, daily range): BP systolic 128–155; BP diastolic 65–95; PULSE 79–103; RESP 4–20; TEMP 36–36.7; O2SAT 89–99
[2023-01-08] MEDS: Levalbuterol 0.63 MG/3 ML UPD VIAL UPD ×4 (05:35→20:41)
[2023-01-08] MEDS: Ipratropium 0.5 MG/2.5 ML UPD VIAL UPD ×4 (05:35→20:41)
[2023-01-08 06:41] LABS: Abs Immature Grans 0.08 10^3/uL (0.0-0.06); Absolute Basophil Count 0.03 10^3/uL (0.0-0.2); Absolute Eosinophil Count 0.02 10^3/uL (0.0-0.7); Absolute Lymphocyte Count 1.96 10^3/uL (1.2-3.4); Absolute Monocyte Count 1.36 10^3/uL (0.1-0.8); Absolute Neutrophil Count 12.89 10^3/uL (1.2-6.7); Basophils % 0.2; Eosinophils % 0.1; HCT 46.1 % (40.0-50.0); HGB 15.3 g/dL (13.5-17.5); Immature Grans % 0.5; MCH 31.7 pg (27.0-33.0); MCHC 33.2 % (32.0-36.0); MCV 95 fL (80-95); MPV 11.2 fL (8.0-11.0); Monocytes % 8.3; Neutrophils % 78.9; Platelet Count 231 10^3/uL (130-400); RBC 4.83 10^6/uL (4.36-5.78); RDW 13.3 % (11.8-14.1); RDW-SD 47.1 fL; WBC 16.34 10^3/uL (4.4-10.8)
[2023-01-08 07:08] LABS: Anion Gap 2.5 mmol/L (3-11); BUN 34 mg/dL (7-18); CO2 31.5 mmol/L (21.0-32.0); CREATININE 1.4 mg/dL (0.70-1.30); Calcium 9.9 mg/dL (8.5-10.1); Chloride 101 mmol/L (98-107); Estimated GFR 52.41 (mL/min/1.73m2); Glucose 123 mg/dL (74-106); Magnesium 2.2 mg/dL (1.8-2.4); NT-proBNP 113 pg/mL (<300); Potassium 3.9 mmol/L (3.5-5.1); Sodium 135 mmol/L (136-145)
[2023-01-08] MEDS: Omeprazole 20 MG CAPCR PO (07:26)
[2023-01-08] MEDS: Aspirin 325 MG TAB PO (07:26)
[2023-01-08] MEDS: guaiFENesin 600 MG TABCR PO ×2 (07:26→20:40)
[2023-01-08] MEDS: Citalopram 20 MG TAB PO (07:26)
[2023-01-08] MEDS: LORazepam 0.5 MG TAB PO ×3 (07:27→20:41)
[2023-01-08] MEDS: predniSONE 20 MG TAB 40 MG PO (07:31)
[2023-01-08] MEDS: Mometasone 220 MCG 14 DOSE INHALER 2 PUFF IH ×2 (08:04→20:42)
[2023-01-08] MEDS: Doxycycline Hyclate 100 MG CAP PO ×2 (10:24→21:28)
[2023-01-08] MEDS: Lactated Ringers 1,000 ML 80 ML IV (11:25)
--- NOTE | 2023-01-08 12:53 | W.PM.PROGNOT ---
Date of Service Date of service: 01/08/23 Time of Service: 12:53 Assessment and Plan Assessment and plan (1) Vocal cord dysfunction: Status: Acute Assessment and plan: lorazepam has helped his anxiety but done nothing for his stridor. He is already on prednisone 40 mg. I will check CT soft tissues of his neck and his chest; consult ENT and pulmonary on Tuesday. Subjectively he feels better since admisssion. He needs follow up laryngoscopy. Professional time spent interviewing and examining patient, discussion of goals of care with hospital team (care management, nursing and consulting professionals) was 30 minutes. (2) COPD exacerbation: Status: Acute Assessment and plan: patient was changed yesterday from iv corticosteroids to prednisone. Will continue his aerosolized bronchodilators, continue doxycycline and mucinex, change oxygen from NC to humidified face mask (3) Hypoxia: Status: Acute Assessment and plan: Likely due to a combination of 1 and 2. Wean O2 as tolerated. (4) Sleep apnea, obstructive: Status: Chronic Assessment and plan: Continue CPAP. (5) Hoarseness: Status: Chronic Assessment and plan: H/O laryngeal CA. I suspect that the patient has vocal cord paralysis which might be contributing to his wheezing. (6) Hyperlipidemia: Status: Acute Assessment and plan: Continue simvistatin. (7) Hypertensive disorder: Status: Chronic Assessment and plan: BP was low yesterday mid 90's to low 100's and his lisinopril was held. Also he had a bit of azotemia today. I will continue to hold his lisinopril and give judicious fluids as he has not been taking much PO (8) Morbid obesity: Status: Chronic Assessment and plan: Suspect he likely also has OHS. F/u w/ PCP in regards to lifestyle changes and weight loss. (9) DVT prophylaxis: Status: Acute Assessment and plan: SC enoxaparin (10) Discharge planning issues: Status: Acute Assessment and plan: Full code Continues to require hospitalization Subjective Subjective Interval history since last seen: Darion says that he feels better than when he presented to the hospital on . He has chronic hoarseness related to his treatment for laryngeal cancer nearly 20 yrs ago. He has had no follow up ENT exams in 10 yrs. He says that he was last told that he has scarring of his vocal cords. He presented to the hospital w/ progressive dyspnea, feeling of choking on his phlegm, difficulty mobilizing his mucous and difficulty breathing w/ lying down and feeling tightness in his throat/upper chest. No associated fever or chills/rigors and no hemoptysis. Sputum/mucous has remained white but has had an increase in the amount of mucous. CXR did not show any infiltrates. He is currently on prednisone and doxycycline as well as nebulized bronchodilators. Exam Narrative Exam Narrative: Darion is lying down on his side, he does not appear to be in any respiratory distress He has some audible stridor in his expiratory phase Neck: supple, nontender, no adenopathy Chest barrel chested; no tactile fremitus Lungs: prolonged expiratory phase w/ more pronounced expiratory stridorous breath sounds from the upper chest anteriorly; not really wheezing when listened over lower lung ybarra Abdomen: obese, soft, nontender Objective Last Vital Signs Temp 36.3 C L 01/08/23 12:25 Pulse 80 01/08/23 12:25 Resp 20 01/08/23 12:25 BP 128/65 01/08/23 12:25 Pulse Ox 93 01/08/23 12:25 Laboratory Results - last 24 hr 01/08/23 01/08/23 06:31 06:31 WBC 16.34 H RBC 4.83 Hgb 15.3 Hct 46.1 MCV 95 MCH 31.7 MCHC 33.2 RDW 13.3 Plt Count 231 MPV 11.2 H Immature Gran % 0.5 Neutrophils % 78.9 Lymphocytes % 12.0 Monocytes % 8.3 Eosinophils % 0.1 Basophils % 0.2 Nucleated RBC % 0.0 Absolute Neutrophils 12.89 H Absolute Lymphocytes 1.96 Absolute Monocytes 1.36 H Absolute Eosinophils 0.02 Absolute Basophils 0.03 Sodium 135 L Potassium 3.9 Chloride 101 Carbon Dioxide 31.5 Anion Gap 2.5 L BUN 34 H Creatinine 1.4 H Est GFR (CKD-EPI 2020) 52.41 Glucose 123 H Calcium 9.9 Magnesium 2.2 NT-Pro-B Natriuret Pep 113 Time Spent with Patient Time Spent with Patient: 25-34 minutes Time was spent: preparing to see the patient(eg.review tests), obtaining and/or reviewing separately otained hiistory, ordering medications,tests, procedures, referring, communicating with other health direct care professional, indepentently interpreting results, counseling the patient and care coordination
--- NOTE | 2023-01-08 14:30 | DI.CT_ITS ---
Exam(s) CT NECK CHEST W EXAM: CT NECK CHEST W CLINICAL HISTORY: stridor, dyspnea TECHNIQUE: Imaging Protocol: Axial computed tomography images with coronal and sagittal reformatted images were created and reviewed CONTRAST MATERIAL: Intravenous: Omnipaque 350contrast volume:100 mL. COMPARISON: No exams were available for comparison FINDINGS: The examination is limited due to patient motion artifact. Orbits and orbital soft tissues: Within normal limits. Visualized paranasal sinuses: Within normal limits. Nasopharynx: Within normal limits. Oropharynx: Within normal limits. Hypopharynx: Within normal limits. Larynx: Within normal limits. Retropharyngeal space: Within normal limits. Parotids/submandibular: Within normal limits. Thyroid gland: Within normal limits. Lymphadenopathy: There is scattered lymph nodes seen along the level one to level three all measurin g less than 8 mm in short axis diameter which are physiologic in nature. Trachea: Within normal limits. Lung apices: Within normal limits. Bones: Within normal limits for the patient's age. Carotids/Jugular: Within normal limits. Soft tissues: Within normal limits. Tracheobronchial tree: Patent where visualized. Pulmonary parenchyma: No consolidation or dominant measurable mass. No architectural distortion. Mediastinum and Stephy: No dominant adenopathy or fluid collection. The esophagus is unremarkable. Thyroid gland: Unremarkable. Pleura: No effusion or pneumothorax. Heart: The heart is not dilated. No coronary artery calcifications are seen. No pericardial effusion. Aorta: Thoracic aorta non-dilated. Mild atherosclerosis. Pulmonary arteries: No pulmonary emboli are identified. Upper abdomen: Cholelithiasis. There is a patent steatosis. Lymph nodes: Within normal limits. Bones: Within normal limits for the patient's age. Soft tissues: Unremarkable. IMPRESSION: 1. No acute abnormality is seen in the neck. No mass or adenopathy is present. 2. No acute pulmonary process. RADIATION DOSE DELIVERED: 1,792.83mGy.cm Total DLP DATA REPOSITORY: All CT scans at this facility are submitted to the National Radiology Data Registry (NRDR) Dose Index Registry (DIR) with the [employer] (A[employer]). RADIATION OPTIMIZATION: All CT scans at this facility use at least one of these dose optimization te chniques: automated exposure control; mA and/or kV adjustment per patient size (includes targeted exa ms where dose is matched to clinical indication); or iterative reconstruction.
[2023-01-08] MEDS: Omnipaque 350 MG/ML 100 ML BTL IJ (14:49)
--- NOTE | 2023-01-08 16:20 | DI.VRAD_ITS ---
PROCEDURE INFORMATION: Exam: CT Neck With Contrast Exam date and time: 01/08/2023 2:30 PM Age: 77 years old Clinical indication: Other: Stridor, dyspnea TECHNIQUE: Imaging protocol: Computed tomography of the neck with contrast. Contrast material: OMNIPAUE 350; Contrast volume: 100 ml; Contrast route: INTRAVENOUS (IV); COMPARISON: CR XR PORTABLE CHEST AP 01/06/2023 5:02 PM FINDINGS: Pharynx: Unremarkable. No significant tonsillar enlargement. Larynx: Unremarkable. Epiglottis is normal. Prevertebral and retropharyngeal spaces: Unremarkable. Salivary glands: Normal. Glands are normal in size. Thyroid: Normal. No enlarged or calcified nodules. Lymph nodes: Unremarkable. No lymphadenopathy. Trachea: Visualized trachea is unremarkable. Lungs: Unremarkable as visualized. Bones/joints: Mild grade 1 anterolisthesis of C3 on C4 and C4 over C5. Disc degenerative change with moderate loss of disc height at C5-C6 and C6-C7. Vasculature: There is a retropharyngeal course of the bilateral common and proximal internal carotid arteries. Soft tissues: Unremarkable. No significant soft tissue swelling. IMPRESSION: No mass or abnormal lymphadenopathy. No abnormal fluid collection identified. PROCEDURE INFORMATION: Exam: CT Chest With Contrast; Diagnostic Exam date and time: 01/08/2023 2:30 PM Age: 77 years old Clinical indication: Other: Stridor, dyspnea TECHNIQUE: Imaging protocol: Diagnostic computed tomography of the chest with contrast. Contrast material: OMNIPAUE 350; Contrast volume: 100 ml; Contrast route: INTRAVENOUS (IV); COMPARISON: CR XR PORTABLE CHEST AP 01/06/2023 5:02 PM FINDINGS: Lungs: Mild paraseptal emphysematous changes in the bilateral apical lungs. No consolidation. Pleural spaces: Unremarkable. No pneumothorax. No pleural effusion. Heart: Unremarkable. No cardiomegaly. No pericardial effusion. Lymph nodes: Unremarkable. No enlarged lymph nodes. Vasculature: Unremarkable. No aortic aneurysm. Liver: Hepatic steatosis. Gallbladder and bile ducts: There is cholelithiasis. Bones/joints: There are chronic fractures of the right posterolateral ribcage. Soft tissues: Unremarkable. IMPRESSION: No acute pulmonary abnormality. No mass or abnormal fluid collection identified. No abnormal lymphadenopathy. Dictated and Authenticated by: Brian Marroquin MD. Ordering:P[facility] Lisa Harrell MD
[2023-01-08] MEDS: Enoxaparin 40 MG/0.4 ML SYR SC (20:41)
[2023-01-08] MEDS: Simvastatin 20 MG TAB PO (21:28)
[2023-01-09] VITALS (9 sets, daily range): BP systolic 134–165; BP diastolic 73–94; PULSE 73–92; RESP 4–20; TEMP 36.1–36.7; O2SAT 90–99
[2023-01-09 06:42] LABS: Abs Immature Grans 0.03 10^3/uL (0.0-0.06); Absolute Basophil Count 0.03 10^3/uL (0.0-0.2); Absolute Eosinophil Count 0.05 10^3/uL (0.0-0.7); Absolute Lymphocyte Count 2.88 10^3/uL (1.2-3.4); Absolute Monocyte Count 0.92 10^3/uL (0.1-0.8); Absolute Neutrophil Count 5.59 10^3/uL (1.2-6.7); Basophils % 0.3; Eosinophils % 0.5; HCT 47.6 % (40.0-50.0); HGB 15.4 g/dL (13.5-17.5); Immature Grans % 0.3; Lymphocytes % 30.3; MCH 31.2 pg (27.0-33.0); MCHC 32.4 % (32.0-36.0); MCV 97 fL (80-95); MPV 11.1 fL (8.0-11.0); Monocytes % 9.7; Neutrophils % 58.9; Platelet Count 226 10^3/uL (130-400); RBC 4.93 10^6/uL (4.36-5.78); RDW 13.2 % (11.8-14.1); RDW-SD 47.6 fL
[2023-01-09 07:00] LABS: Anion Gap 3.8 mmol/L (3-11); BUN 27 mg/dL (7-18); CO2 32.2 mmol/L (21.0-32.0); Calcium 9.9 mg/dL (8.5-10.1); Chloride 102 mmol/L (98-107); Estimated GFR 78.49 (mL/min/1.73m2); Glucose 98 mg/dL (74-106); Potassium 4.2 mmol/L (3.5-5.1); Sodium 138 mmol/L (136-145)
[2023-01-09] MEDS: Omeprazole 20 MG CAPCR PO (07:29)
[2023-01-09] MEDS: Mometasone 220 MCG 14 DOSE INHALER 2 PUFF IH (07:34)
[2023-01-09] MEDS: Levalbuterol 0.63 MG/3 ML UPD VIAL UPD (07:34)
[2023-01-09] MEDS: Ipratropium 0.5 MG/2.5 ML UPD VIAL UPD (07:35)
[2023-01-09] MEDS: Aspirin 325 MG TAB PO (09:17)
[2023-01-09] MEDS: predniSONE 20 MG TAB 40 MG PO (09:18)
[2023-01-09] MEDS: Citalopram 20 MG TAB PO (09:18)
[2023-01-09] MEDS: LORazepam 0.5 MG TAB PO ×3 (09:18→20:05)
[2023-01-09] MEDS: guaiFENesin 600 MG TABCR PO ×2 (09:18→20:04)
[2023-01-09] MEDS: Doxycycline Hyclate 100 MG CAP PO ×2 (10:06→22:05)
--- NOTE | 2023-01-09 13:34 | PHA.REVIEW2 ---
Pharmacy Admission Review - Admission Clinical Review (Last Reviewed 01/06/23 @ 22:06 by Antonio Bower MD) Hypoxia (Acute) Discharge planning issues (Acute) DVT prophylaxis (Acute) Vocal cord dysfunction (Acute) COPD exacerbation (Acute) Hyperlipidemia (Acute) twisted tea Allergy (Severe, Uncoded 01/06/23 18:35) Hives Resuscitation Status Full Code Height 5 ft 11 in Weight 144.696 kg - Renal Dosing Renal Dosing: BUN 27 mg/dL (7-18) H 01/09/23 06:20 Creatinine 1.0 mg/dL (0.70-1.30) 01/09/23 06:20 Medications needing adjustments: Reviewed - Anticoagulation Anticoagulation: Hgb 15.4 g/dL (13.5-17.5) 01/09/23 06:20 Hct 47.6 % (40.0-50.0) 01/09/23 06:20 Plt Count 226 10^3/uL (130-400) 01/09/23 06:20 Creatinine 1.0 mg/dL (0.70-1.30) 01/09/23 06:20 DVT Prophylaxis: Reviewed Medications: Enoxaparin - Opiate Usage Evaluate Pain Scale/Pains Meds: N/A - Relevant Labs Sodium 138 mmol/L (136-145) 01/09/23 06:20 Potassium 4.2 mmol/L (3.5-5.1) 01/09/23 06:20 Chloride 102 mmol/L (98-107) 01/09/23 06:20 Magnesium 2.2 mg/dL (1.8-2.4) 01/08/23 06:31 Electrolytes, C-Reactive P, ESR: Reviewed - DM Control DM Control: Glucose 98 mg/dL (74-106) 01/09/23 06:20 DM Control: N/A - Cardiac Review Cardiac Review: Troponin I < 50 ng/L (<or=60) 01/06/23 18:55 NT-Pro-B Natriuret Pep 113 pg/mL (<300) 01/08/23 06:31 BP, HR, EF%: Reviewed (lisinopril at home) - Qtc Review QTc: Reviewed (QTc 456 on admission) - IV to PO Switch IV Medications: Reviewed - Home Meds Home Med List reviewed: Reviewed Relevent Home Meds Not ordered & why?: not ordered: lisinopril - Current meds Current Medication Order Review: Reviewed
--- NOTE | 2023-01-09 14:03 | W.PM.PROGNOT ---
Date of Service Date of service: 01/09/23 Time of Service: 14:03 Assessment and Plan Assessment and plan (1) COPD exacerbation: Status: Acute Assessment and plan: will change his ipatroprium and xopenex updrafts to DuoNeb aerosols and add Spiriva and change his asmanex to Symbicort. continue prednisone 40 mg daily and doxycycline (although no clear bacterial etiology confirmed but he was put on this as he reported an increase in his sputum production Professional time spent interviewing and examining patient, discussion of goals of care with hospital team (care management, nursing and consulting professionals) was 30 minutes. (2) Vocal cord dysfunction: Status: Acute Assessment and plan: I suspect he probably has some scar tissue on his vocal cords from previous laryngeal cancer treatment. However we cannot rule out the possibility is recurrent cancer. Therefore I am recommending that he get laryngoscopy prior to discharge. We will contact Dr. Feldman in the morning. (3) Hypoxia: Status: Acute Assessment and plan: Likely due to a combination of 1 and 2. Wean O2 as tolerated. (4) Sleep apnea, obstructive: Status: Chronic Assessment and plan: Continue CPAP. (5) Hoarseness: Status: Chronic Assessment and plan: H/O laryngeal CA. I suspect that the patient has vocal cord paralysis or scarring; however, need to rule out recurrence of his laryngeal cancer. he has not had laryngoscopy in 10 yrs. (6) Hyperlipidemia: Status: Acute Assessment and plan: Continue simvistatin. (7) Hypertensive disorder: Status: Chronic Assessment and plan: lisinopril was put on hold as he was mildly hypotensive, dehydrated and w/ azotemia on admission; now his BP have recovered and he is hypertensive (SBP 150's to 160's) and renal fxn has recovered w/ BUN 27 and creatinine 1.0 (down from 34 and 1.4) (8) Morbid obesity: Status: Chronic Assessment and plan: Suspect he likely also has OHS. F/u w/ PCP in regards to lifestyle changes and weight loss. (9) DVT prophylaxis: Status: Acute Assessment and plan: SC enoxaparin (10) Discharge planning issues: Status: Acute Assessment and plan: Full code Continues to require hospitalization Subjective Subjective Interval history since last seen: Patient still with wheezing and stridorous breathing but he feels less dyspneic and is asking if he could try going without his oxygen. At home he does not use oxygen during the day. Does wear a CPAP mask at night and he has been using his home CPAP. At the hospital. His family was under the impression that he was going to go for procedure tomorrow and I told the patient that is not necessarily true but that I would ask for ENT and pulmonary services to evaluate him as I do feel that he should have laryngoscopy performed to look for the source of his stridor. I also went over the results of his CT scan of his soft tissues of his neck as well as CT scan of his lungs. CT of the neck showed no abnormalities in the neck no mass or adenopathy and CT scan of the chest showed no acute pulmonary process. Exam Narrative Exam Narrative: Morbidly obese white male sitting up in bed wearing his oxygen in no acute distress but he does have stridorous breathing. Chest is barrel chested with diffuse expiratory wheezes Heart is regular rate and rhythm Abdomen obese soft and nontender Objective Last Vital Signs Temp 36.3 C L 01/09/23 12:05 Pulse 79 01/09/23 12:05 Resp 20 01/09/23 12:05 BP 164/94 H 01/09/23 12:05 Pulse Ox 95 01/09/23 12:05 Laboratory Results - last 24 hr 01/09/23 01/09/23 06:20 06:20 WBC 9.50 RBC 4.93 Hgb 15.4 Hct 47.6 MCV 97 H MCH 31.2 MCHC 32.4 RDW 13.2 Plt Count 226 MPV 11.1 H Immature Gran % 0.3 Neutrophils % 58.9 Lymphocytes % 30.3 Monocytes % 9.7 Eosinophils % 0.5 Basophils % 0.3 Nucleated RBC % 0.0 Absolute Neutrophils 5.59 Absolute Lymphocytes 2.88 Absolute Monocytes 0.92 H Absolute Eosinophils 0.05 Absolute Basophils 0.03 Sodium 138 Potassium 4.2 Chloride 102 Carbon Dioxide 32.2 H Anion Gap 3.8 BUN 27 H Creatinine 1.0 Est GFR (CKD-EPI 2020) 78.49 Glucose 98 Calcium 9.9 Time Spent with Patient Time Spent with Patient: 25-34 minutes Time was spent: preparing to see the patient(eg.review tests), obtaining and/or reviewing separately otained hiistory, ordering medications,tests, procedures, indepentently interpreting results, counseling the patient and care coordination
[2023-01-09] MEDS: Albuterol/Ipratropium 3 ML UPD VIAL UPD ×2 (15:51→20:05)
[2023-01-09] MEDS: Budesonide/Formoterol 160/4.5 6 GM 60 PUFF INH IH ×2 (16:00→20:04)
[2023-01-09] MEDS: Tiotropium Bromide-Respimat 10 PUFF INH 2 PUFF IH (16:00)
[2023-01-09] MEDS: Lisinopril 20 MG TAB PO (16:50)
[2023-01-09 18:30] LABS: Legionella Ag Detection Urine Negative (Negative)
[2023-01-09] MEDS: Enoxaparin 40 MG/0.4 ML SYR SC (20:06)
[2023-01-09] MEDS: Simvastatin 20 MG TAB PO (22:11)
[2023-01-10 03:10] VITALS: BP 154/95; PULSE 73; RESP 20; TEMP 36.1; O2SAT 92
[2023-01-10 06:15] VITALS: BP 164/82; PULSE 71; RESP 20; TEMP 36.7; O2SAT 91
--- NOTE | 2023-01-10 07:09 | PUCON_ITS ---
General Date Of Service Date of service: 01/10/23 Time of Service: 07:09 Reason for Consult: COPD Exacerbation Question Vocal cord dysfunction Assessment and Plan Assessment and plan (1) Hypoxia: Status: Acute (2) COPD exacerbation: Status: Acute (3) Vocal cord dysfunction: Status: Suspected (4) Laryngeal dystonia: Status: Acute Assessment and plan: This is a 77 yo admitted for a COPD exacerbation as well as upper airway irritation. There was concern for a vocal cord dysfunction as well. Currently, his exam and history is not consistent with this diagnosis, however I do think her may have a process related to his history of laryngeal cancer and surgery (stricture, edema, etc). I do think consultation with ENT will be beneficial, however I do not think this is emergently needed. He has never had a COPD flare previously. I do think he should complete a prednisone taper and doxycycline for a total of 5 days. 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 He was admitted for a COPD exacerbation and there was a question of vocal cord dysfunction. Historically he was only on Flovent as an inhaler, but in hospital he has been on Spiriva and Symbicort. His eosinophils were 280 on admission. He is also receiving prednisone and Duonebs. He states he is feeling much better than when he was initially admitted. His voice is raspy and weak and he states it normally is, but maybe it is a bit quieter than his baseline. He does not have globus, but does think the benzodiazepam's have helped with his breathing. He has never had a COPD exacerbation in the past, and his recent PFT's do show moderate airflow obstruction with the possibility of asthma as well, which clinically, I do think is possible. He is a former smoker, and quit 20 years ago. Review of Systems All systems reviewed & are unremarkable except as noted in HPI and below PFSH All Active Problems (Updated 01/10/23 @ 14:55 by Amarilis Hammond MD) Laryngeal dystonia (Acute) Hypoxia (Acute) Discharge planning issues (Acute) DVT prophylaxis (Acute) Morbid obesity (Chronic) COPD exacerbation (Acute) BPH (benign prostatic hyperplasia) (Chronic) Chronic low back pain (Chronic) Nocturia (Acute) Hyperlipidemia (Acute) Sleep apnea, obstructive (Chronic) Chronic GERD (Acute) Hoarseness (Chronic) COPD (chronic obstructive pulmonary disease) (Chronic) Hypertensive disorder (Chronic) Cancer (Acute) Larynx Alcohol abuse (Chronic) Panic disorder (Acute) Obesity (Chronic) Prediabetes (Acute) Lower back pain (Acute) Urinary incontinence (Acute) Medical History History of BPH Social History Smoking/Tobacco Use Status: Former Tobacco Use Quit Date: 10/24/94 Smoking risk assessment performed?: Yes Alcohol Intake: current Alcohol Intake frequency: holidays/special occasions only Drug use: Never Substance use type: does not use Do you feel safe at home: Yes Do you feel safe in your relationship?: Yes Visit Medication and Allergies Active Medications Generic Name Dose Route Start Last Admin Trade Name Freq PRN Reason Stop Dose Admin Acetaminophen 0 mg 01/06/23 19:19 Acetaminophen 325 Mg Tab PO Q4H PRN PRN Albuterol/Ipratropium 3 ml 01/09/23 16:00 01/10/23 05:43 Albuterol/Ipratropium 3 Ml Upd Vial UPD Not Given Q4H WHILE AWAKE [facility] Aspirin 325 mg 01/07/23 08:30 01/09/23 09:17 Aspirin 325 Mg Tab PO 325 mg DAILY [facility] Administration Budesonide/Formoterol Fumarate 2 puff 01/09/23 14:10 01/09/23 20:04 Budesonide/Formoterol 160/4.5 6 Gm 60 Puff Inh IH 2 puffs BID [facility] Administration Citalopram Hydrobromide 20 mg 01/07/23 08:30 01/09/23 09:18 Citalopram 20 Mg Tab PO 20 mg QAM [facility] Administration Device 1 each 01/07/23 12:00 Inhaler, Assist Device MC DIRECTED [facility]IS Device 1 each 01/09/23 15:00 Inhaler, Assist Device MC DIRECTED [facility] Dimethicone/Zinc Oxide 0 gm 01/06/23 19:19 Rolo Protect Cream 142 Gm Tube TP PRN PRN Doxycycline Hyclate 100 mg 01/06/23 22:00 01/09/23 22:05 Doxycycline Hyclate 100 Mg Cap PO 100 mg Q12H [facility] Administration Enoxaparin Sodium 40 mg 01/06/23 20:00 01/09/23 20:06 Enoxaparin 40 Mg/0.4 Ml Syr SC 40 mg Q24H [facility] Administration Guaifenesin 600 mg 01/07/23 20:00 01/09/23 20:04 Guaifenesin 600 Mg Tabcr PO 600 mg BID [facility] Administration IV Miscellaneous Supplies 1 each 01/06/23 16:00 Iv Access IV DIRECTED [facility] Iohexol 100 ml 01/08/23 15:00 01/08/23 14:49 Omnipaque 350 Mg/Ml 100 Ml Btl IJ 02/07/23 23:59 100 ml DIRECTED [facility] Administration Levalbuterol HCl 0.63 mg 01/06/23 19:25 01/07/23 12:51 Levalbuterol 0.63 Mg/3 Ml Upd Vial UPD 0.63 mg Q2H PRN PRN Administration Lisinopril 20 mg 01/10/23 08:30 Lisinopril 20 Mg Tab PO QAM [facility] Lorazepam 0.5 mg 01/07/23 20:00 01/09/23 20:05 Lorazepam 0.5 Mg Tab PO 0.5 mg TID [facility] Administration Magnesium Hydroxide 30 ml 01/06/23 19:19 Milk Of Magnesia 30 Ml Cup PO DAILY PRN PRN Omeprazole 20 mg 01/07/23 07:30 01/09/23 07:29 Omeprazole 20 Mg Capcr PO 20 mg DAILY@0730 [facility] Administration Polyethylene Glycol 17 gm 01/06/23 19:19 01/07/23 18:04 Polyethylene Glycol 3350 17 Gm Packet PO 17 gm DAILY PRN PRN Administration Constipation Prednisone 40 mg 01/08/23 08:30 01/09/23 09:18 Prednisone 20 Mg Tab PO 40 mg DAILY [facility] Administration Simvastatin 20 mg 01/06/23 22:00 01/09/23 22:11 Simvastatin 20 Mg Tab PO 20 mg HS [facility] Administration Sodium Chloride 0 ml 01/06/23 15:46 01/07/23 14:26 Normal Saline Flush 10 Ml Syr IVP 10 ml PRN PRN Administration Terazosin HCl 1 mg 01/06/23 22:00 01/06/23 22:14 Terazosin 1 Mg Cap PO 1 mg HS [facility] Administration Tiotropium [place] 2 puff 01/09/23 14:10 01/09/23 16:00 Tiotropium [place]-Respimat 10 Puff Inh IH 2 inh DAILY [facility] Administration Allergies twisted tea Allergy (Severe, Uncoded 01/06/23 18:35) Hives Exam Narrative Exam Narrative: Gen: NAD HENT: PERRL Chest: No respiratory distress, there is wheezing present over the neck, which is louder than appreciated in the lung ybarra, no stridor Heart: regular rate and rhythym, no murmurs, rubs or gallops Abdomen: Non-distended, soft, non tender Extremities: No clubbing, edema, cyanosis, rashes Neuro: AAOx3 , non focal Psych: cooperative, appropriate mental affect Results Last Vital Signs Temp 36.7 C 01/10/23 06:15 Pulse 71 01/10/23 06:15 Resp 20 01/10/23 06:15 BP 164/82 H 01/10/23 06:15 Pulse Ox 91 L 01/10/23 06:15 Labs 01/09/23 06:20 01/09/23 06:20
[2023-01-10] MEDS: Aspirin 325 MG TAB PO (08:06)
[2023-01-10] MEDS: predniSONE 20 MG TAB 40 MG PO (08:07)
[2023-01-10] MEDS: Lisinopril 20 MG TAB PO (08:07)
[2023-01-10] MEDS: guaiFENesin 600 MG TABCR PO (08:07)
[2023-01-10] MEDS: Omeprazole 20 MG CAPCR PO (08:07)
[2023-01-10] MEDS: LORazepam 0.5 MG TAB PO ×2 (08:08→13:39)
[2023-01-10] MEDS: Citalopram 20 MG TAB PO (08:08)
[2023-01-10 08:10] VITALS: BP 176/78; PULSE 80; RESP 20; TEMP 36.2; O2SAT 96
--- NOTE | 2023-01-10 08:55 | W.PM.PROGNOT ---
Date of Service Date of service: 01/10/23 Time of Service: 08:55 Assessment and Plan Assessment and plan (1) COPD exacerbation: Status: Acute Assessment and plan: Asmanex changed to Symbicort, Spiriva added. I will discharge him home today on a 2-week taper of prednisone beginning at 40 mg daily x4 days then 30 mg daily x4 days then 20 mg daily x4 days then 10 mg daily x4 days Professional time spent interviewing and examining patient, discussion of goals of care with hospital team (care management, nursing and consulting professionals) was 20 minutes. (2) Vocal cord dysfunction: Status: Acute Assessment and plan: Patient should follow-up with ENT to have an updated laryngoscopy to see if he has vocal cord scarring or whether could possibly be any new neoplasms. He has not had an updated laryngoscopy in 10 years. We will try to get a referral to Dr. Feldman to see the patient while as an inpatient with Dr. Feldman apparently is off for the entire week. We will try to set the patient up for follow-up as an outpatient in the next 2 to 4 weeks. (3) Hypoxia: Status: Acute Assessment and plan: Likely due to a combination of 1 and 2. Wean O2 as tolerated. We will check an ambulatory pulse oximetry prior to discharge. (4) Sleep apnea, obstructive: Status: Chronic Assessment and plan: Continue CPAP. (5) Hoarseness: Status: Chronic Assessment and plan: H/O laryngeal CA. I suspect that the patient has vocal cord paralysis or scarring; however, need to rule out recurrence of his laryngeal cancer. he has not had laryngoscopy in 10 yrs. (6) Hyperlipidemia: Status: Acute Assessment and plan: Continue simvistatin. (7) Hypertensive disorder: Status: Chronic Assessment and plan: lisinopril was put on hold as he was mildly hypotensive, dehydrated and w/ azotemia on admission; now his BP have recovered and he is hypertensive (SBP 150's to 160's) and renal fxn has recovered w/ BUN 27 and creatinine 1.0 (down from 34 and 1.4) lisinopril 20 mg daily was resumed yesterday (tuesday 01/09). I will resume his full dose of 30 mg daily beginning today, but plan to discharge him home if his oxygen levels are ok (8) Morbid obesity: Status: Chronic Assessment and plan: Suspect he likely also has OHS. F/u w/ PCP in regards to lifestyle changes and weight loss. (9) DVT prophylaxis: Status: Acute Assessment and plan: SC enoxaparin (10) Discharge planning issues: Status: Acute Assessment and plan: Full code Continues to require hospitalization Subjective Subjective Interval history since last seen: Darion is doing better this morinng. Less dyspnea. he was sitting up at the bedside not requiring oxygen. No choking spells w/ meals. He is still dysphonic but stridor has improved. Patient was seen w/ Dr. Hammond, who agrees that he probably has some VC scarring and probably has some edema along w/ his COPD A/E. She recommends steroid taper over couple weeks. Exam Narrative Exam Narrative: Morbidly obese weight male with a plethoric facies. He is alert and oriented person place time circumstance. Chest is barrel chested Lungs with diffuse expiratory wheezes more prominent in the upper lung ybarra than at the bases. No rhonchi no rales Heart regular rate and rhythm Objective Last Vital Signs Temp 36.2 C L 01/10/23 08:10 Pulse 80 01/10/23 08:10 Resp 20 01/10/23 08:10 BP 176/78 H 01/10/23 08:10 Pulse Ox 96 01/10/23 08:10 Time Spent with Patient Time Spent with Patient: <25 minutes Time was spent: preparing to see the patient(eg.review tests), ordering medications,tests, procedures, referring, communicating with other health health care sanitary technician (Dr. Hammond), indepentently interpreting results, counseling the patient and care coordination
[2023-01-10] MEDS: Tiotropium Bromide-Respimat 10 PUFF INH 2 PUFF IH (10:13)
[2023-01-10] MEDS: Budesonide/Formoterol 160/4.5 6 GM 60 PUFF INH IH (10:13)
[2023-01-10 10:14] VITALS: PULSE 80; RESP 20; RESP 4; RESP 8; O2SAT 92
[2023-01-10] MEDS: Albuterol/Ipratropium 3 ML UPD VIAL UPD ×2 (10:14→11:43)
[2023-01-10 10:16] VITALS: O2SAT 95
[2023-01-10] MEDS: Lisinopril 10 MG TAB PO (10:50)
[2023-01-10] MEDS: Doxycycline Hyclate 100 MG CAP PO (10:50)
[2023-01-10 11:06] VITALS: PULSE 80; PULSE 83; PULSE 94; RESP 18; RESP 24; O2SAT 90; O2SAT 93; O2SAT 96
--- NOTE | 2023-01-10 11:14 | PDOC.CMDIS ---
- If Service Date Differs Date of service: 01/10/23 Time of Service: 11:14 LACE Index Scoring Tool - Questions: Length of Stay (in days): 4 - 6 Acuity (Admit via E.D.?): Yes Comorbidities: Chronic Pulmonary Disease, Any Tumor E.D. Visits: 1 - Answers: Total Score: 13 Risk of Readmission: High Risk Care Management Discharge Reason for Hospitalization: COPD Exacerbation Discharge Plan: Darion will return home on an oral steroid taper, per MD. He will follow up with his PCP and plan of care as prescribed. He will transport with private vehicle with family. Patient/Family Education Needs: Review discharge instructions, discuss Ask Me Three.
--- NOTE | 2023-01-10 13:58 | DSE_ITS ---
Date of service: 01/10/23 Time of Service: 13:58 DS: Diagnosis Discharge Diagnosis (1) COPD exacerbation: Status: Acute (2) Vocal cord dysfunction: Status: Suspected (3) Hypoxia: Status: Resolved (4) Sleep apnea, obstructive: Status: Chronic (5) Hoarseness: Status: Chronic (6) Hyperlipidemia: Status: Acute (7) Hypertensive disorder: Status: Chronic (8) Morbid obesity: Status: Chronic (9) DVT prophylaxis: Status: Deleted (10) Discharge planning issues: Status: Deleted Discharge Plan Disposition Patient Disposition: Home Condition: Improving Discharge Details Reason For Visit: COPD Exacerbation Admit Date/Time: 01/06/23 19:19 Admit Provider: Antonio Bower Attending Provider: Antonio Bower Primary Care Provider: Linette Funk [place] [facility] Hospital Course: Mr Gerber is a 77 yo male with a PMH of COPD, HLD, LUIS, HTN, laryngeal cancer, alcohol abuse, panic disorder, obesity prediabetes, BPH.? He presented to the ED with increasing shortness of breath. He endorsed respiratory sxs / chest congestion for appx 2 weeks.? No fever/chills.? No chest pain/palpitations.? No purulent sputum.? EMS found him to be hypoxic with O2 saturations in the low 80's.? He does not use supplemental O2 at home.? He was transported on supp. O2. In the ED his RA oxygen saturations were between 89-91%. CXR w/o acute findings.? WBC count normal.? Chemistries normal.? Troponin neg.? Fluvid negative. He was given Duoneb txs and IV solumedrol.? Provided supplemental O2 at 2L per NC. Patient was treated w/ iv solumedrol, aerosolized bronchodilators (DuoNeb), he was placed on Smbicort and Spiriva and put on doxycycline for bronchitis and given supplemental oxygen. Due to his upper airway stridor and prior surgery for laryngeal cancer, conern was raised for either possible recurrence of his laryngeal cancer or scar tissue causing upper airway airflow issues. CT of his chest and soft tissues of his neck were performed. No pulmonary infiltreates or CHF was seen and no lung massess and no neck massess or adenopathy were seen. He was treated w/CPAP but transitioned to regular nasal cannula during the day. His solumedrol was transitioned to oral prednisone. He was seen by Dr. Hammond, pulmonology who recommended a two week taper of prednisone. An ENT consult was requested but Dr. Feldman was out of town for a week and therefore the patient never saw ENT. The patient did well and passed an ambulatory pulse oximetry test on the day of discharge with SPO2 of 93 to 96%, and did not require supplemental oxygen. He is recommended to follow up w/ Dr. Hammond and to see Dr. Feldman to evaluate his chronic hoarseness. Patient was sent home on a 5 day course of doxycycline and a 16 day taper of prednisone along w/ Rx for Symbibort and Spiriva. Home Meds and New Rx's Prescriptions: New budesonide-formoterol [Symbicort] 160-4.5 mcg/actuation Hfa Aerosol Inhaler 2 puff inhalation BID Qty: 10.2 0RF doxycycline hyclate 100 mg Capsule 100 mg PO Q12H Qty: 10 0RF Spiriva Respimat 2.5 mcg/actuation Mist 2 puff inhalation DAILY Qty: 4 0RF guaifenesin [Mucus Relief ER] 600 mg Tablet Extended Release 12hr 600 mg PO BID Qty: 20 0RF Inhaler, Assist Devices [Pocket Chamber] 1 ea miscellaneous DIRECTED Qty: 0 0RF prednisone 10 mg tablet 10 mg PO DIRECTED Qty: 40 0RF Rx Instructions: taper as follows: 40 mg/d x 4d, 30 mg/d x 4d, 20 mg/d x 4d, 10 mg/d x 4d Continued terazosin 1 mg capsule 1 mg PO QHS albuterol sulfate [Ventolin HFA] 90 mcg/actuation HFA aerosol inhaler 2 puff inhalation 6XD aspirin 325 mg tablet 325 mg PO DAILY simvastatin 20 MG tablet 20 mg PO HS lisinopril 30 MG tablet 30 mg PO DAILY AM citalopram 40 MG tablet 20 mg PO QAM omeprazole [Prilosec] 40 MG capsule,delayed release(DR/EC) 40 mg PO QAM Discontinued fluticasone propionate [Flovent HFA] 220 mcg/actuation HFA aerosol inhaler 2 puff inhalation BID No Action (DME) CPAP 0 .ROUTE .MEDSUPPLY Discharge Instructions Instructions: Prednisone (By mouth), Tiotropium (By breathing), Budesonide/Formoterol (By breathing), COPD (Chronic Obstructive Pulmonary Disease) (DC) Additional Instructions: Take your prednisone in a tapering fashion as follows: Prednisone 10 mg tablets, 4 tablets daily x4 days, 3 tablets daily x4 days, 2 tablets daily x4 days, 10 tablets daily x4 days. Finish out your course of doxycycline which is your antibiotic. Doxycycline 100 mg capsule 1 twice a day about 12 hours apart. Avoid taking the doxycycline with any dairy products or antiacids as they will interfere with the absorption of the antibiotic. Use your acapella and your incentive spirometer to help mobilize mucus. You have been given a prescription for Mucinex to help thin the mucus secretions. Cool humidified air may help with your raspy voice. It is recommended that you follow-up with Dr. Feldman, ENT to evaluate your vocal cords to be sure there is not scar tissue or any new growth on your vocal cords. Keep your follow-up with Dr. Hammond, telegraphic typewriter mechanic. Please see your primary care provider in the next 1 to 2 weeks. Stand Alone Forms: Nursing Discharge Form Referrals: Linette Funk [Primary Care Provider] - 01/24/23 11:00 am Amarilis Hammond MD [ [facility] STAFF PHYSICIAN] - 02/10/23 11:00 am Elan Feldman MD [ [facility] STAFF PHYSICIAN] - (A nurse from ENT will call and make an Appointment with you ) Activity:: Activity as Tolerated Equipment/Supplies:: No Equipment Needed Diet:: Low Sodium Discharge Orders Discharge Orders: Discharge Order (Routine); Ordered 01/10/23 Ordered By: Julio Cesar Gonzalez Discharge Data Discharge Date/Time-TO BE ENTERED AT DEPARTURE: 01/10/23 14:56 DS: Summary Time Spent with Patient providing and/or coordinating discharge services: Greater than 30 minutes Specific discharge activities: Interview/exam of patient; review of discharge instructions, completion of prescriptions/discharge instructions; discussion w/ nursing and CM; documentation of hospital visit Status at Discharge Functional status at discharge: independent ambulation Overall status at discharge: patient is progressing back to baseline Mental Status: mental status grossly normal Speech and Movement: speech and movement normal Mood: congruent mood Affect: normal affect Exam Narrative Exam Narrative: Morbidly obese weight male with a plethoric facies. He is alert and oriented person place time circumstance. Voice is raspy although stridor is much i mproved. Chest is barrel chested Lungs with diffuse expiratory wheezes more prominent in the upper lung ybarra than at the bases. No rhonchi no rales Heart regular rate and rhythm Psych Mental Status: mental status grossly normal Speech and Movement: speech and movement normal Mood: congruent mood Affect: normal affect DS: Data Vitals/I&O Vitals and I&O: Vital Signs Temperature 36.2 C L 01/10/23 08:10 Temperature Source Tympanic 01/10/23 08:10 Pulse 80 01/10/23 10:14 Pulse Rhythm Regular 01/10/23 07:30 Respiratory Rate 20 01/10/23 10:14 Respiratory Effort Normal, Non-Labored 01/10/23 07:30 Respiratory Depth Normal 01/10/23 07:30 Respiratory Pattern Normal 01/10/23 07:30 Blood Pressure 176/78 H 01/10/23 08:10 Blood Pressure Mean 75 01/06/23 18:20 Blood Pressure Position Sitting 01/06/23 15:42 Pulse Oximetry 95 01/10/23 10:16 Oxygen Delivery Method Room Air 01/10/23 10:14 Oxygen Flow Rate 0 01/10/23 10:14 Fraction of Inspired Oxygen (FIO2) 21 01/10/23 10:18 Pain Level 0 01/10/23 08:10 Intake & Output 01/09/23 01/10/23 01/10/23 23:59 11:59 23:59 Intake Total 240 / 240 Output Total 750 / 1550 Balance -750 / -539.333 240 / 240 Intake: Oral 240 / 240 Output: Urine 750 / 1550 Other: Urine Color Light Shamika Urine Appearance Clear Clear Urine Odor Normal Comment pt voided x1 Voiding Methods Toilet Data Completed and Pending Labs on day of discharge: Labs from last 24 hours 01/08/23 14:00 Urine Legionella Ag Negative Preliminary micro results at discharge 01/08/23 14:00 Sputum Culture - Preliminary Sputum Normal [place] PFSH All Active Problems (Updated 01/11/23 @ 00:06 by JOSE MOSES) Laryngeal dystonia (Acute) Morbid obesity (Chronic) COPD exacerbation (Acute) BPH (benign prostatic hyperplasia) (Chronic) Chronic low back pain (Chronic) Nocturia (Acute) Hyperlipidemia (Acute) Sleep apnea, obstructive (Chronic) Chronic GERD (Acute) Hoarseness (Chronic) COPD (chronic obstructive pulmonary disease) (Chronic) Hypertensive disorder (Chronic) Cancer (Acute) Larynx Alcohol abuse (Chronic) Panic disorder (Acute) Obesity (Chronic) Prediabetes (Acute) Lower back pain (Acute) Urinary incontinence (Acute) Medical History History of BPH Social History Smoking/Tobacco Use Status: Former Tobacco Use Quit Date: 10/24/94 Smoking risk assessment performed?: Yes Alcohol Intake: current Alcohol Intake frequency: holidays/special occasions only Drug use: Never Substance use type: does not use Do you feel safe at home: Yes Do you feel safe in your relationship?: Yes Time Spent with Patient Time Spent with Patient: <45 minutes Time was spent: preparing to see the patient(eg.review tests), ordering medications,tests, procedures, referring, communicating with other health rn home care (Discussion with Dr. Hammond), indepentently interpreting results, counseling the patient and care coordination
[2023-01-11 14:37] LABS: Streptococcus Pneumoniae Ag, U Negative (Negative)
[2023-01-11 15:49] LABS: Mycoplasma Pneumoniae PCR Negative; Specimen source sputum
== END 2023-01-10 14:56 | disposition home or self-care (01) | DRG 191 ==
LOC: ER 20:02 → MS 01-07 09:46
PROVIDERS: Internal Medicine; Admitting Provider Family Medicine; Emergency Provider Emergency Medicine; PCP Nurse Practitioner Family; Visit Provider Family Medicine
DX: G24.8 Other dystonia; Z68.41 Body mass index [BMI] 40.0-44.9, adult; J44.0 Chronic obstructive pulmonary disease with (acute) lower respiratory infection; G47.33 Obstructive sleep apnea (adult) (pediatric); E78.5 Hyperlipidemia, unspecified; J44.1 Chronic obstructive pulmonary disease with (acute) exacerbation; Z20.822 Contact with and (suspected) exposure to COVID-19; I10 Essential (primary) hypertension; Z85.21 Personal history of malignant neoplasm of larynx; R49.0 Dysphonia; F41.0 Panic disorder [episodic paroxysmal anxiety]; F10.10 Alcohol abuse, uncomplicated; R73.03 Prediabetes; N40.0 Benign prostatic hyperplasia without lower urinary tract symptoms; M54.50 Low back pain, unspecified; G89.29 Other chronic pain; R35.1 Nocturia; R32 Unspecified urinary incontinence; Z87.891 Personal history of nicotine dependence; J20.9 Acute bronchitis, unspecified; R09.02 Hypoxemia; E66.01 Morbid (severe) obesity due to excess calories
CPT/HCPCS: 36415; 70491; 80048; 80053; 84145; 87449; 87637; 93005; 94618; 94640; 96372; 96374; 96376; 99285; J1650; 71045; 71260; 83735; 83880; 84484; 85025; 87070; 87205; 87581; 87899; 93010; 94664; 94667; 94760; 99222; 99231; 99232; 99239; J2930; J3490; J7512; J7614; J7620; J7644

== ENCOUNTER 2023-02-14 00:07 | Inpatient (IN) | payer OTHER, SELFPAY ==
[2023-02-14] VITALS (126 sets, daily range): BP systolic 48–155; BP diastolic 24–101; PULSE 64–215; RESP 4–45; TEMP 33–36.9; O2SAT 85–96
--- NOTE | 2023-02-14 | RT.EKG_ITS ---
APPROVED REPORT Exam: Resting ECG Reason for Exam: sob Patient Location: E HR:89 bpm ECG Measurements Heart Rate 89 AXIS SC 160 P 20 QRSd 91 QRS -86 QT 375 T 56 QTc 457 Conclusion Sinus rhythm...normal P axis, V-rate 60- 99 Left anterior fascicular block...axis(240,-40), init forces inf I have reviewed and interpreted ECG and agree with software generated interpretation.
--- NOTE | 2023-02-14 | DI.RAD_ITS ---
Exam(s) XR PORTABLE CHEST AP EXAM: XR PORTABLE CHEST AP CLINICAL HISTORY: sob, trach, hypoxic TECHNIQUE: 2D digital imaging was performed of the chest. One image was obtained. An AP view was ob tained. COMPARISON: CR,XR XR PORTABLE CHEST AP from 01/06/2023 FINDINGS: MEDIASTINUM: Normal. HEART: Normal. PULMONARY VASCULATURE: Normal. LUNGS: The patient has a tracheostomy tube in place. PLEURAL SPACE: No pleural effusion or pneumothorax. BONE:Within normal limits for the patient's age. OTHER FINDINGS:There is elevation of the right hemidiaphragm. IMPRESSION: No acute pulmonary findings. Please refer to the CT scan of the chest performed the same day for comp lete details. There is a right basilar infiltrate and right pleural effusion seen on the CT scan. DATA REPOSITORY: RADIATION DOSE DELIVERED:
--- NOTE | 2023-02-14 | DI.US_ITS ---
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 TECHNIQUE: Huang scale, color and spectral Doppler were used. COMPARISON: No exams were available for comparison FINDINGS: Renal size in cm: Right: 11.5. Left: 12.8. Echogenicity: Normal. Hydronephrosis: No. Cyst or mass: No. Nephrolithiasis: No. Other findings: Mild renal cortical atrophy. Bladder:The urinary bladder cannot be evaluated as it was empty. Ureteral jets: Right: Was not visualized on this examination. Left: 1 not visualized on this examination. Prevoid vol:The bladder was empty during the examination. Cc Postvoid vol:The bladder was empty during the examination. Cc Prostate: Not visualized on this examination. Cc Renal color flow: Symmetric and within normal limits. IMPRESSION: 1. Mild renal cortical atrophy is present. No evidence of hydronephrosis. 2. The urinary bladder was empty preventing sonographic evaluation. DATA REPOSITORY:
--- NOTE | 2023-02-14 00:20 | W.ED.GENAD ---
Discharge Plan Discharge Details Chief Complaint: SOB/SuddenOnset Clinical Impression: Pneumonia, Acute respiratory distress Admit Date/Time: 02/14/23 02:47 Admit Provider: Stoney Pierre Attending Provider: Stoney Pierre Primary Care Provider: Linette Funk ED Provider: Jaspreet Helms Home Meds and New Rx's Prescriptions: No Action albuterol sulfate 2.5 mg /3 mL (0.083 %) solution for nebulization 2.5 mg inhalation DIRECTED PRN (Reason: shortness of breath or wheezing) Qty: 540 12RF Rx Instructions: Twice daily and as needed for shortness of breath Incruse Ellipta 62.5 mcg/actuation blister with device 1 inh inhalation DAILY Qty: 30 11RF (DME) CPAP 0 .Route .MEDSUPPLY albuterol sulfate [Ventolin HFA] 90 mcg/actuation HFA aerosol inhaler 2 puff inhalation 6XD fluticasone propion-salmeterol [Advair HFA] 230-21 mcg/actuation HFA aerosol inhaler 2 puff inhalation BID Qty: 12 12RF simvastatin 20 MG tablet 20 mg PO HS lisinopril 30 MG tablet 30 mg PO DAILY AM omeprazole [Prilosec] 40 MG capsule,delayed release(DR/EC) 40 mg PO QAM budesonide-formoterol [Symbicort] 160-4.5 mcg/actuation Hfa Aerosol Inhaler 2 puff inhalation BID Qty: 10.2 0RF Spiriva Respimat 2.5 mcg/actuation Mist 2 puff inhalation DAILY Qty: 4 0RF guaifenesin [Mucus Relief ER] 600 mg Tablet Extended Release 12hr 600 mg PO BID Qty: 20 0RF Inhaler, Assist Devices [Pocket Chamber] 1 ea miscellaneous DIRECTED Qty: 0 0RF metoprolol succinate 50 mg tablet extended release 24 hr 50 mg PO DAILY Patient Comments: 1 tablet by mouth once a day Eliquis 5 mg tablet 5 mg PO BID Patient Comments: TAKE ONE TABLET BY MOUTH TWICE A DAY citalopram 20 mg tablet 20 mg PO DAILY Patient Comments: Take 1 tablet by mouth every night Medical Decision Making 77-year-old male with a past medical history of asthma/COPD, GERD, prediabetic, hypertension, laryngeal cancer with subsequent tracheostomy placed on 02/03/2023 who was subsequently switched out at time of discharge to a 6 proximal XLT uncuffed trach, who also developed atrial fibrillation during his hospital stay and was started on Eliquis, and was just discharged within the past 3 days. He presents today for shortness of breath. They were at home today, and doing well however unfortunately the humidifier broke in the afternoon, and they were not able to get a humidifier till later. It was a few hours where he was not getting humidified oxygen, and family was concerned that he was accumulating secretions at that time. And then later this evening the patient became notably short of breath and had difficulty breathing. EMS was called, he was noted to be hypoxic with mild respiratory distress on their arrival. He was in the 80s on pulse oximetry saturation, he was suctioned, and given supplemental oxygen. He was brought to the ER for further assessment. Patient denies any chest pain, pleuritic chest pain, vomiting, diarrhea, numbness, tingling or weakness. He is been taking his medications as directed. He states that he feels much better now that he arrives to the ER, and denies any other complaints. No other complaints at this time. No other modifying factors. Exam demonstrates rhonchorous breath sounds. Mild amount of discharge. Patient seems to be oxygenating well now. He is on 4 L of supplemental oxygen saturating in the mid 90s. We will evaluate for pneumonia, aspiration, we will give a breathing treatment, monitor closely and reassess. Suspect the major cause of his symptoms may have been increased secretions causing air trapping and difficulty breathing, however we will evaluate for other concerning etiologies as well. Patient is extremely anxious right now, and is asking for something to help with his nerves. We will give very small dose of Ativan. 3:16am Patient's laboratory work-up has returned related to his sleep. No white count or bandemia, ABG stable. Electrolytes stable, creatinine has taken a little bit of a bump and is now 2, GFR is down to 34. Suspect potential mild acute kidney injury. Troponin normal, proBNP normal suggesting no signs of heart strain. COVID flu and RSV negative. Initial chest x-ray was read as negative, however CT was ordered, and demonstrates evidence of a fairly large right-sided pneumonia. I am worried about potential aspiration component versus an issue with his secretions bringing about this location for the pneumonia. I suspect this is likely a component of the cause of his symptoms of shortness of breath, his increased oxygen demand, and his hypoxemia earlier this evening. Patient has stabilized and clinically improved by still is not appropriate or stable for discharge home. Patient is still requiring supplemental oxygen. We will admit. Discussed the case with Dr. Pierre the hospitalist. He has asked that I place bridging orders on his behalf. I have extensively reviewed the treatment plan with the patient. I have addressed all patient concerns at this time. I have also discussed the plan with the admitting physician and they agree with the current assessment and plan and have agreed to assume responsibility for the patient. All parties demonstrate verbal understanding and agreement with our assessment and plan at this time. The documentation in this chart was dictated using [employer] dictation software. Please excuse any dictation errors. FINDINGS: Tubes, catheters and devices: Tracheostomy cannula is in position. Lungs: No acute lung infiltrates. No edema. Pleural spaces: No pleural effusion. Heart/Mediastinum: Normal heart size. Bones/joints: Unremarkable. IMPRESSION: 1. Clear lungs and pleural space. 2. Normal heart size. 3. Tracheostomy cannula in position. Thank you for allowing us to participate in the care of your patient. Dictated and Authenticated by: Bernardino Polanco MD 02/14/2023 12:49 AM Eastern Time ([place] & [place]) FINDINGS: Tubes, catheters and devices: Tracheostomy cannula is in position. Unremarkable appearance. Lungs: Posterior right lower lobe airspace consolidation with air bronchograms consistent with infiltrate. Pleural spaces: Right pleural effusion of small size. Minor pleural thickening of the mid lateral left hemithorax with a small associated calcification. Benign in appearance. Series 2, image 32. Heart: Normal heart size. No pericardial effusion. No significant coronary artery atherosclerotic calcium. Lymph nodes: Unremarkable. No enlarged lymph nodes. Vasculature: Thoracic aorta with mild atherosclerotic change. No aneurysm. Diaphragm: Small sliding hiatal hernia. No acute features Gallbladder and bile ducts: Gallstone within the gallbladder. Pancreas: Severe pancreatic atrophy. Bones/joints: Unremarkable. No acute fracture. Soft tissues: Chest wall soft tissues are unremarkable. IMPRESSION: 1. Posterior right lower lobe infiltrate. 2. Minor right pleural effusion. 3. Tracheostomy cannula is well positioned. 4. Cardiac structures and great vessels of the mediastinum are unremarkable. 5. Severe pancreatic atrophy. 6. Gallstone. 7. Sliding hiatal hernia. No acute features. Thank you for allowing us to participate in the care of your patient. Dictated and Authenticated by: Bernardino Polanco MD 02/14/2023 2:02 AM Eastern Time ([place] & [place] HPI General Date/Time Provider Initiated Documentation: 02/14/23 00:19. HPI Narrative: 77-year-old male with a past medical history of asthma/COPD, GERD, prediabetic, hypertension, laryngeal cancer with subsequent tracheostomy placed on 02/03/2023 who was subsequently switched out at time of discharge to a 6 proximal XLT uncuffed trach, who also developed atrial fibrillation during his hospital stay and was started on Eliquis, and was just discharged within the past 3 days. He presents today for shortness of breath. They were at home today, and doing well however unfortunately the humidifier broke in the afternoon, and they were not able to get a humidifier till later. It was a few hours where he was not getting humidified oxygen, and family was concerned that he was accumulating secretions at that time. And then later this evening the patient became notably short of breath and had difficulty breathing. EMS was called, he was noted to be hypoxic with mild respiratory distress on their arrival. He was in the 80s on pulse oximetry saturation, he was suctioned, and given supplemental oxygen. He was brought to the ER for further assessment. Patient denies any chest pain, pleuritic chest pain, vomiting, diarrhea, numbness, tingling or weakness. He is been taking his medications as directed. He states that he feels much better now that he arrives to the ER, and denies any other complaints. No other complaints at this time. No other modifying factors. Related Data Home Medications Medication Instructions Recorded Confirmed lisinopril 30 mg tablet 30 mg PO DAILY AM 05/22/14 02/14/23 omeprazole 40 mg capsule,delayed 40 mg PO QAM 05/22/14 02/14/23 release (Prilosec) simvastatin 20 mg tablet 20 mg PO HS 05/22/14 02/14/23 CPAP 08/27/22 01/19/23 albuterol sulfate 90 mcg/actuation 2 puff inhalation 6XD 08/27/22 02/14/23 aerosol inhaler (Ventolin HFA) Inhaler, Assist Devices [Pocket 1 ea miscellaneous DIRECTED ##0 01/10/23 02/14/23 Chamber] budesonide-formoterol HFA 160 2 puff inhalation BID #10.2 grams 01/10/23 02/14/23 mcg-4.5 mcg/actuation aerosol inhaler (Symbicort) guaifenesin 600 mg tablet, 600 mg PO BID #20 tabs 01/10/23 02/14/23 extended release 12 hr (Mucus Relief ER) tiotropium bromide 2.5 2 puff inhalation DAILY #4 grams 01/10/23 02/14/23 mcg/actuation mist for inhalation (Spiriva Respimat) albuterol sulfate 2.5 mg/3 mL 2.5 mg (3 mL) inhalation 01/18/23 02/14/23 (0.083 %) solution for nebulization DIRECTED PRN shortness of breath or wheezing #540 mL umeclidinium 62.5 mcg/actuation 1 inh inhalation DAILY #30 ea 01/18/23 02/14/23 blister powder for inhalation (Incruse Ellipta) fluticasone propionate 230 2 puff inhalation BID #12 grams 02/01/23 02/14/23 mcg-salmeterol 21 mcg/actuation HFA inhaler (Advair HFA) apixaban 5 mg tablet (Eliquis) 5 mg PO BID 02/14/23 02/14/23 citalopram 20 mg tablet 20 mg PO DAILY 02/14/23 02/14/23 metoprolol succinate 50 mg 50 mg PO DAILY 02/14/23 02/14/23 tablet,extended release 24 hr Previous Rx's Medication Instructions Recorded Inhaler, Assist Devices [Pocket 1 ea miscellaneous DIRECTED ##0 01/10/23 Chamber] budesonide-formoterol HFA 160 2 puff inhalation BID #10.2 grams 01/10/23 mcg-4.5 mcg/actuation aerosol inhaler (Symbicort) guaifenesin 600 mg tablet, 600 mg PO BID #20 tabs 01/10/23 extended release 12 hr (Mucus Relief ER) tiotropium bromide 2.5 2 puff inhalation DAILY #4 grams 01/10/23 mcg/actuation mist for inhalation (Spiriva Respimat) albuterol sulfate 2.5 mg/3 mL 2.5 mg (3 mL) inhalation 01/18/23 (0.083 %) solution for nebulization DIRECTED PRN shortness of breath or wheezing #540 mL umeclidinium 62.5 mcg/actuation 1 inh inhalation DAILY #30 ea 01/18/23 blister powder for inhalation (Incruse Ellipta) fluticasone propionate 230 2 puff inhalation BID #12 grams 02/01/23 mcg-salmeterol 21 mcg/actuation HFA inhaler (Advair HFA) Allergies Allergy/AdvReac Type Severity Reaction Status Date / Time twisted tea Allergy Severe Hives Uncoded 01/19/23 15:52 General Stated Complaint: SOB/SuddenOnset GARFIELD: 2 Review of Systems All systems reviewed & are unremarkable except as noted in HPI and below PFSH All Active Problems (Updated 02/14/23 @ 03:16 by Jaspreet Helms DO) Pneumonia (Acute) Acute respiratory distress (Acute) Dyspnea (Acute) Laryngeal carcinoma (Acute) Asthma-COPD overlap syndrome (Acute) Former smoker (Acute) Laryngeal dystonia (Acute) Morbid obesity (Chronic) COPD exacerbation (Acute) BPH (benign prostatic hyperplasia) (Chronic) Chronic low back pain (Chronic) Nocturia (Acute) Hyperlipidemia (Acute) Sleep apnea, obstructive (Chronic) Chronic GERD (Acute) Hoarseness (Chronic) COPD (chronic obstructive pulmonary disease) (Chronic) Hypertensive disorder (Chronic) Cancer (Acute) Larynx Alcohol abuse (Chronic) Panic disorder (Acute) Obesity (Chronic) Prediabetes (Acute) Lower back pain (Acute) Urinary incontinence (Acute) Medical History History of BPH Family History Father Lung disease Cancer Social History Smoking/Tobacco Use Status: Former Tobacco Use Quit Date: 10/24/94 Smoking risk assessment performed?: Yes Alcohol Intake: current Alcohol Intake frequency: holidays/special occasions only Drug use: Never Substance use type: does not use Do you feel safe at home: Yes Do you feel safe in your relationship?: Yes Exam Narrative Exam Narrative: 1.Const: Well-nourished, Well-developed, appearing stated age 2.Eyes: PERRL, no conjunctival injection, and symmetrical lids. 3.ENT: Atraumatic external nose and ears. Moist MM. Neck: Symmetric, trachea midline, No thyromegaly. Tracheostomy is present. Small amount of secretions around it. No bleeding. 4.CVS: +S1/S2, No murmurs or gallops. Peripheral pulses 2+ and equal in all extremities. Brisk capillary refill in all extremities. 5.RESP: Mild rhonchi throughout. Minimal wheeze. 6.GI: Soft, Nontender/Nondistended, No hepatosplenomegaly. No guarding or rebound. 7.MSK: Normocephalic/Atraumatic, Extremities w/o deformity or ttp No cyanosis or clubbing, Normal movement of all extremities 8.Skin: Warm, Dry. No rashes or lesions. 9.Neuro: dialysis technician II-XII grossly intact. Sensation grossly intact, no focal neurologic deficits. 10.Psych: (AAO) x3. Appropriate mood and affect Course Vital Signs Vital signs: Vital Signs Temperature 36.1 C L 02/14/23 00:08 Pulse 96 H 02/14/23 00:08 Respiratory Rate 31 H 02/14/23 00:08 Pulse Oximetry 96 02/14/23 00:08 Temperature 36.1 C L 02/14/23 00:08 Temperature Source Temporal Artery Scan 02/14/23 00:08 Pulse 96 H 02/14/23 00:08 Respiratory Rate 31 H 02/14/23 00:08 Blood Pressure Position Sitting 02/14/23 00:08 Pulse Oximetry 96 02/14/23 00:08 Oxygen Delivery Method Trach Collar 02/14/23 00:08 Oxygen Flow Rate 0 02/14/23 00:08 Pain Level 4 02/14/23 00:08
[2023-02-14] MEDS: Albuterol/Ipratropium 3 ML UPD VIAL (00:30)
[2023-02-14 00:34] LABS: Abs Immature Grans 0.07 10^3/uL (0.0-0.06); Absolute Basophil Count 0.05 10^3/uL (0.0-0.2); Absolute Eosinophil Count 0.09 10^3/uL (0.0-0.7); Absolute Monocyte Count 0.97 10^3/uL (0.1-0.8); Absolute Neutrophil Count 5.05 10^3/uL (1.2-6.7); Basophils % 0.7; Eosinophils % 1.2; HCT 49.6 % (40.0-50.0); HGB 16.3 g/dL (13.5-17.5); Immature Grans % 0.9; Lymphocytes % 18.3; MCH 31.3 pg (27.0-33.0); MCHC 32.9 % (32.0-36.0); MCV 95 fL (80-95); MPV 11.3 fL (8.0-11.0); Monocytes % 12.7; Neutrophils % 66.2; Platelet Count 292 10^3/uL (130-400); RBC 5.21 10^6/uL (4.36-5.78); RDW 12.3 % (11.8-14.1); RDW-SD 43.6 fL; WBC 7.63 10^3/uL (4.4-10.8)
[2023-02-14] MEDS: LORazepam 2 MG/ML VIAL 1 MG IVP (00:39)
--- NOTE | 2023-02-14 00:50 | DI.VRAD_ITS ---
PROCEDURE INFORMATION: Exam: XR Chest Exam date and time: 02/14/2023 12:23 AM Age: 77 years old Clinical indication: Other: Hypoxic, SOB; Prior surgery; Surgery date: 3-7 days post-operative; Patient HX: SOB, trach, hypoxic TECHNIQUE: Imaging protocol: Radiologic exam of the chest. Views: 1 view. COMPARISON: CT NECK CHEST W 01/08/2023 2:30 PM FINDINGS: Tubes, catheters and devices: Tracheostomy cannula is in position. Lungs: No acute lung infiltrates. No edema. Pleural spaces: No pleural effusion. Heart/Mediastinum: Normal heart size. Bones/joints: Unremarkable. IMPRESSION: 1. Clear lungs and pleural space. 2. Normal heart size. 3. Tracheostomy cannula in position. Dictated and Authenticated by: Bernardino Polanco MD. Ordering:CELIA Vogel MD
[2023-02-14] MEDS: Albuterol/Ipratropium 3 ML UPD VIAL UPD ×5 (00:55→21:04)
[2023-02-14 00:57] LABS: ALT 27 U/L (16-63); AST 19 U/L (15-37); Albumin 2.6 g/dL (3.4-5.0); Alkaline Phosphatase 60 U/L (46-116); Anion Gap 6.1 mmol/L (3-11); BUN 30 mg/dL (7-18); Bilirubin, Total 0.7 mg/dL (0.2-1.0); CO2 30.9 mmol/L (21.0-32.0); Chloride 98 mmol/L (98-107); Estimated GFR 34.16 (mL/min/1.73m2); Glucose 130 mg/dL (74-106); NT-proBNP 245 pg/mL (<300); Potassium 3.6 mmol/L (3.5-5.1); Sodium 135 mmol/L (136-145); Total Protein 6.9 g/dL (6.4-8.2); Troponin I < 50 ng/L (<or=60)
[2023-02-14 01:10] LABS: COVID-19 PCR Negative (Negative); Influenza A PCR Negative (Negative); Influenza B PCR Negative (Negative); RSV PCR Negative (Negative)
[2023-02-14 01:13] LABS: Source Nasopharynx
[2023-02-14 01:15] LABS: D-Dimer 797 ng/mlFEU (<500)
--- NOTE | 2023-02-14 01:15 | DI.CT_ITS ---
Exam(s) CT CHEST WO EXAM: CT CHEST WO CLINICAL HISTORY: right shoulder pain, sob, hypoxic. TECHNIQUE: Imaging protocol: Axial computed tomography images were obtained and coronal and sagittal reformatted images were created and reviewed. COMPARISON: CT CT NECK CHEST W from 01/08/2023 CR,XR XR PORTABLE CHEST AP from 02/14/2023 FINDINGS: The examination is limited due to patient motion artifact. Tracheobronchial tree: There is a tracheostomy tube in place. There is diffuse thickening of the wal l of the trachea and right and left mainstem bronchi. Pulmonary parenchyma: There are bulla seen in the lung apices. There is an infiltrate now seen in th e right lower lobe. There is an associated small right pleural effusion. Mild dependent changes are also seen in the lung bases. The lungs are otherwise clear. No pulmonary nodules are seen. Mediastinum and Stephy: No dominant adenopathy or fluid collection. The esophagus is unremarkable. Thyroid gland: Unremarkable. Pleura: No left pleural effusion. No pneumothorax. Very mild pleural calcification is seen in the l eft base. Heart: The heart is not dilated. Mild coronary artery calcification. No pericardial effusion. Aorta: Thoracic aorta non-dilated. Atherosclerosis. Upper abdomen: Cholelithiasis is seen. There is a 1.3 cm stone in the neck of the gallbladder. No obvious biliary ductal dilatation. There is diffuse fatty atrophy of the pancreas. Lymph nodes: Within normal limits. Soft tissues: Gynecomastia. Bones:Within normal limits for the patient's age. IMPRESSION: 1. Right basilar infiltrate and small right pleural effusion. 2. Tracheostomy tube in place. 3. Cholelithiasis. RADIATION DOSE DELIVERED: 959.37mGy.cm Total DLP 959.37mGy.cm Total DLP DATA REPOSITORY: All CT scans at this facility are submitted to the National Radiology Data Registry (NRDR) Dose Index Registry (DIR) with the [employer] ([employer]). RADIATION OPTIMIZATION: All CT scans at this facility use at least one of these dose optimization te chniques: automated exposure control; mA and/or kV adjustment per patient size (includes targeted exa ms where dose is matched to clinical indication); or iterative reconstruction.
[2023-02-14 01:24] LABS: BE (Venous) 4 mmol/L (-2-3); HCO3 (Venous) 30 mmol/L (23-28); O2 Sat (Venous) 66 %; TCO2 (Venous) 27 mmol/L (24-29); pCO2 (Venous) 58 mmHg (41-51); pH (Venous) 7.32 (7.31-7.41); pO2 (Venous) 38 mmHg
[2023-02-14] MEDS: MORPHine 4 MG/ML SYR IVP (01:28)
--- NOTE | 2023-02-14 02:03 | DI.VRAD_ITS ---
PROCEDURE INFORMATION: Exam: CT Chest Without Contrast; Diagnostic Exam date and time: 02/14/2023 1:44 AM Age: 77 years old Clinical indication: Shortness of breath and other: Hypoxic; Other: R shoulder; Prior surgery; Surgery date: 3-7 days post-operative; Surgery type: Trach; Patient HX: Right shoulder pain, SOB, hypoxic; Additional info: Larynx CA TECHNIQUE: Imaging protocol: Diagnostic computed tomography of the chest without contrast. 3D rendering (Not supervised by radiologist): MIP and/or 3D reconstructed images were created by the technologist. Radiation optimization: All CT scans at this facility use at least one of these dose optimization techniques: automated exposure control; mA and/or kV adjustment per patient size (includes targeted exams where dose is matched to clinical indication); or iterative reconstruction. COMPARISON: CT NECK CHEST W 01/08/2023 2:30 PM FINDINGS: Tubes, catheters and devices: Tracheostomy cannula is in position. Unremarkable appearance. Lungs: Posterior right lower lobe airspace consolidation with air bronchograms consistent with infiltrate. Pleural spaces: Right pleural effusion of small size. Minor pleural thickening of the mid lateral left hemithorax with a small associated calcification. Benign in appearance. Series 2, image 32. Heart: Normal heart size. No pericardial effusion. No significant coronary artery atherosclerotic calcium. Lymph nodes: Unremarkable. No enlarged lymph nodes. Vasculature: Thoracic aorta with mild atherosclerotic change. No aneurysm. Diaphragm: Small sliding hiatal hernia. No acute features. Gallbladder and bile ducts: Gallstone within the gallbladder. Pancreas: Severe pancreatic atrophy. Bones/joints: Unremarkable. No acute fracture. Soft tissues: Chest wall soft tissues are unremarkable. IMPRESSION: 1. Posterior right lower lobe infiltrate. 2. Minor right pleural effusion. 3. Tracheostomy cannula is well positioned. 4. Cardiac structures and great vessels of the mediastinum are unremarkable. 5. Severe pancreatic atrophy. 6. Gallstone. 7. Sliding hiatal hernia. No acute features. Dictated and Authenticated by: Bernardino Polanco MD. Ordering:CELIA Vogel MD
[2023-02-14] MEDS: PIPERACILLIN/TAZO 3.375 GM in Normal Saline 50 ML IVPB ×2 (02:35→07:47)
[2023-02-14] MEDS: AZITHROMYCIN 500 MG in Normal Saline 250 ML 250 MG IVPB (02:48)
[2023-02-14] MEDS: Normal Saline 500 ML IV (03:59)
[2023-02-14] MEDS: VANCOMYCIN 2,000 MG in Normal Saline 500 ML 333.3333 MG IVPB (04:02)
[2023-02-14] MEDS: methylPREDNISolone SUCC 125 MG VIAL IVP (04:05)
[2023-02-14] MEDS: Normal Saline 1,000 ML 125 ML IV (04:06)
--- NOTE | 2023-02-14 04:41 | HPE_ITS ---
Date of service: 02/14/23 Time of Service: 03:30 Assessment and Plan Assessment and plan (1) Pneumonia: Start date: 02/14/23 Status: Acute Assessment and plan: This is 77-year-old gentleman with recent tracheostomy tube placed secondary to surgery with resection of recurrent throat cancer. He was having difficulty with humidified oxygen at home and had dry secretions with difficulty breathing prompting ED visit. He was found to have right lower lobe pneumonia and hypoxemia with some respiratory failure acute on chronic. Patient was just home 3 days from his recent hospitalization. During that hospitalization he did have paroxysmal atrial fibrillation and was placed on metoprolol and Eliquis. On [facility] care and in the ICU the patient's blood pressure was slightly low and he appeared slightly dehydrated responded to IV fluids. This stabilized. He did not appear septic with what appears to be a right lower lobe pneumonia possibly from aspiration but difficulty handling secretions recently. He was placed on triple antibiotic therapy with doxycycline, Zosyn and vancomycin to be continued. Consider pulmonology consultation if indicated. Patient is a full code. Qualifiers: Laterality: right Lung location: lower lobe of lung Pneumonia type: due to unspecified organism Qualified Code(s): J18.9 - Pneumonia, unspecified organism (2) Acute respiratory failure with hypoxia: Start date: 02/14/23 Status: Acute Assessment and plan: Doing well with O2 supplementation not requiring positive pressure treatment with patient having history of sleep apnea in the past. Continue suctioning tracheostomy tube with respiratory care and adjust O2 supplement to pulse oximeter measurements above 94%. (3) COPD (chronic obstructive pulmonary disease): Start date: 02/14/23 Status: Acute Assessment and plan: Aggressive nebulizer treatments and Solu-Medrol IV with O2 supplementation. Pulmonology consultation if indicated. Qualifiers: COPD type: COPD with acute exacerbation Qualified Code(s): J44.1 - Chronic obstructive pulmonary disease with (acute) exacerbation (4) Acute dehydration: Start date: 02/14/23 Status: Acute Assessment and plan: Patient's creatinine is slightly up from his baseline and he is having problems with low blood pressure usually on antihypertensives. His antihypertensives will be held reinitiating metoprolol first as allowed especially with history of PAF. IV hydration with follow-up echocardiogram. BNP was normal. (5) Laryngeal carcinoma: Status: Chronic Assessment and plan: Recent interventions with follow-up [facility] as scheduled. Patient needs trach care education. (6) PAF (paroxysmal atrial fibrillation): Status: Chronic Assessment and plan: Recent onset with hospitalization now in sinus rhythm with patient on Eliquis and metoprolol chronically. Continue Eliquis but hold metoprolol with low blood pressure reinitiating once stabilized with IV hydration for mild dehydration. (7) Hypertensive disorder: Status: Chronic Assessment and plan: Presently hypotensive with dehydration and acute respiratory status. Hold lisinopril and metoprolol reinitiating at lower dosages and adjusting as needed during this hospital stay. Qualifiers: Hypertension type: primary hypertension Qualified Code(s): I10 - Essential (primary) hypertension (8) BPH (benign prostatic hyperplasia): Status: Chronic Assessment and plan: Not on medical therapy with patient having a Quesada catheter placed for accurate intake and output measurements while fluid resuscitation. Qualifiers: Lower urinary tract symptom detail: urinary retention Lower urinary tract symptom presence: symptoms present Qualified Code(s): N40.1 - Benign prostatic hyperplasia with lower urinary tract symptoms; R33.8 - Other retention of urine (9) Sleep apnea, obstructive: Status: Chronic Assessment and plan: Reassess need for positive pressure treatment at night with patient having tracheostomy tube which is new. Pulmonology will follow-up as outpatient as previously. Patient appears to be having most of his care at [facility]. (10) Prediabetes: Status: Chronic Assessment and plan: Mild hyperglycemia with a history of no specific therapy for diabetes and no overt diagnosis of diabetes. Monitored with glucometer measurements ACHS and short acting insulin coverage if needed. Check hemoglobin A1c. History of Present Illness History of Present Illness Chief Complaint: Increasing dyspnea at rest Narra tive: This is a 77-year-old male patient with a past history of COPD with asthma having chronic respiratory failure with increased TCO2 and on BiPAP previous to recent tracheostomy 02/03/2023 for laryngeal cancer. During his hospital stay at [facility] he also developed atrial fibrillation and was placed on low-dose metoprolol with Eliquis. He was discharged home about 3 days prior to presentation to this ED for increasing shortness of breath and difficulty with secretions with his tracheostomy tube. His humidifier for his tracheostomy was not working well and he was not having humidified oxygen which caused increased thickness of secretions and difficulty clearing secretions according to the patient family. He was brought to the ED very short of breath and suctioning did help with patient having hypoxemia upon presentation which improved with O2 supplementation. Evaluation with imaging revealed right lower lobe pneumonia which may be secondary to aspiration with patient's difficulty clearing secretions. He had not had any vomiting or regurgitation symptoms. He denies any chest pain and had no GI symptoms. Patient was coughing up thicker respiratory secretions but did not mention change in color. The patient once arriving to [facility] was having low blood pressure measurements with sinus rhythm in the does have history of paroxysmal atrial fibrillation and was respond to IV fluids and appearing slightly dry compared to his baseline creatinine and phy sical exam. He was stabilizing with fluids and Quesada catheter was placed because of problems passing urine to assess intake and output more accurately during his unstable status with blood pressure. He was not requiring other pressors. He is not appearing to have sepsis syndrome at this point. He is a full code. Review of Systems Narrative: 13 point review of systems otherwise unrevealing or stable. Patient does have obesity with some weight loss recently with his events as well as a history of hyperlipidemia on therapy and depression stable on medical treatment. He was wearing CPAP at home prior to his tracheostomy but is not using positive pressure treatment presently. [facility] All Active Problems (Updated 02/14/23 @ 06:13 by Stoney Pierre) Acute dehydration (Acute) PAF (paroxysmal atrial fibrillation) (Chronic) Acute respiratory failure with hypoxia (Acute) Pneumonia (Acute) Acute respiratory distress (Acute) Dyspnea (Acute) Laryngeal carcinoma (Chronic) Asthma-COPD overlap syndrome (Acute) Former smoker (Acute) Laryngeal dystonia (Acute) Morbid obesity (Chronic) COPD exacerbation (Acute) BPH (benign prostatic hyperplasia) (Chronic) Chronic low back pain (Chronic) Nocturia (Acute) Hyperlipidemia (Acute) Sleep apnea, obstructive (Chronic) Chronic GERD (Acute) Hoarseness (Chronic) COPD (chronic obstructive pulmonary disease) (Acute) Hypertensive disorder (Chronic) Cancer (Acute) Larynx Alcohol abuse (Chronic) Panic disorder (Acute) Obesity (Chronic) Prediabetes (Chronic) Lower back pain (Acute) Urinary incontinence (Acute) Medical History History of BPH Family History Father Lung disease Cancer Social History Smoking/Tobacco Use Status: Former Tobacco Use Quit Date: 10/24/94 Smoking risk assessment performed?: Yes Alcohol Intake: current Alcohol Intake frequency: holidays/special occasions only Drug use: Never Substance use type: does not use Do you feel safe at home: Yes Do you feel safe in your relationship?: Yes Meds Allergies and Home Medications Allergies Allergy/AdvReac Type Severity Reaction Status Date / Time twisted tea Allergy Severe Hives Uncoded 01/19/23 15:52 Home Medications Medication Instructions Recorded Confirmed Type lisinopril 30 mg tablet 30 mg PO DAILY AM 05/22/14 02/14/23 History omeprazole 40 mg capsule,delayed 40 mg PO QAM 05/22/14 02/14/23 History release (Prilosec) simvastatin 20 mg tablet 20 mg PO HS 05/22/14 02/14/23 History CPAP 08/27/22 01/19/23 History albuterol sulfate 90 mcg/actuation 2 puff inhalation 6XD 08/27/22 02/14/23 History aerosol inhaler (Ventolin HFA) Inhaler, Assist Devices [Pocket 1 ea miscellaneous DIRECTED ##0 01/10/23 02/14/23 Rx Chamber] budesonide-formoterol HFA 160 2 puff inhalation BID #10.2 grams 01/10/23 02/14/23 Rx mcg-4.5 mcg/actuation aerosol inhaler (Symbicort) guaifenesin 600 mg tablet, 600 mg PO BID #20 tabs 01/10/23 02/14/23 Rx extended release 12 hr (Mucus Relief ER) tiotropium bromide 2.5 2 puff inhalation DAILY #4 grams 01/10/23 02/14/23 Rx mcg/actuation mist for inhalation (Spiriva Respimat) albuterol sulfate 2.5 mg/3 mL 2.5 mg (3 mL) inhalation 01/18/23 02/14/23 Rx (0.083 %) solution for nebulization DIRECTED PRN shortness of breath or wheezing #540 mL umeclidinium 62.5 mcg/actuation 1 inh inhalation DAILY #30 ea 01/18/23 02/14/23 Rx blister powder for inhalation (Incruse Ellipta) fluticasone propionate 230 2 puff inhalation BID #12 grams 02/01/23 02/14/23 Rx mcg-salmeterol 21 mcg/actuation HFA inhaler (Advair HFA) apixaban 5 mg tablet (Eliquis) 5 mg PO BID 02/14/23 02/14/23 History citalopram 20 mg tablet 20 mg PO DAILY 02/14/23 02/14/23 History metoprolol succinate 50 mg 50 mg PO DAILY 02/14/23 02/14/23 History tablet,extended release 24 hr Exam Narrative Exam Narrative: General: Patient is moderately obese, flattened affect with good eye contact, and in moderate distress with coughing and clearing upper secretions with tracheostomy which is new for him. Patient is alert and oriented x3. HEENT: Normocephalic, eyes with pupils equal and react to light symmetrically, extraocular movement tact and sclera anicteric. Oropharynx with dry mucosa.. Neck: Supple without JVD. Tracheostomy tube and anterior neck with patient whispering rather than speaking or holding his finger over his tracheostomy and with high flow O2 attached to the tracheostomy tube. Back: Stooped posture without CVA tenderness. Lungs: Decreased aeration with egophony right lower lobe otherwise no focalizing rales or rhonchi, bronchovesicular breath sounds diffusely with increased expiratory phase and slight expiratory wheeze with cough. Very noisy upper airway sounds with the tracheostomy tube. Heart: Distant heart sounds with regular rate and rhythm with no murmurs gallops appreciated. Abdomen: Obese contour, soft and nontender to palpation with no palpable hepatosplenomegaly. Bowel sounds positive in all quadrants. (Patient does have a known gallstone on CT). Genitalia/rectal: Exam deferred. Extremities: Without clubbing, cyanosis or pitting edema with trace to moderate nonpitting edema over ankles. Good cap refill. Peripheral pulses intact. Skin: Pale, warm and dry. Neuro: Cranial nerves II through XII grossly intact, no focalizing motor deficits. No tremor. Psych: Flattened affect with depressed mood, no abnormal thought processes. Remote and recent memory appears grossly intact with patient having difficulty communicating whispering with his new tracheostomy tube. Results Imaging Imaging Studies: Exam: CT Chest Without Contrast; Diagnostic Exam date and time: 02/14/2023 1:44 AM Age: 77 years old Clinical indication: Shortness of breath and other: Hypoxic; Other: R shoulder; Prior surgery; Surgery date: 3-7 days post-operative; Surgery type: Trach; Patient HX: Right shoulder pain, SOB, hypoxic; Additional info: Larynx CA TECHNIQUE: Imaging protocol: Diagnostic computed tomography of the chest without contrast. 3D rendering (Not supervised by radiologist): MIP and/or 3D reconstructed images were created by the technologist. Radiation optimization: All CT scans at this facility use at least one of these dose optimization techniques: automated exposure control; mA and/or kV adjustment per patient size (includes targeted exams where dose is matched to clinical indication); or iterative reconstruction. COMPARISON: CT NECK CHEST W 01/08/2023 2:30 PM FINDINGS: Tubes, catheters and devices: Tracheostomy cannula is in position. Unremarkable appearance. Lungs: Posterior right lower lobe airspace consolidation with air bronchograms consistent with infiltrate. Pleural spaces: Right pleural effusion of small size.? Minor pleural thickening of the mid lateral left hemithorax with a small associated calcification. Benign in appearance.? Series 2, image 32. Heart: Normal heart size. No pericardial effusion. No significant coronary artery atherosclerotic calcium. Lymph nodes: Unremarkable. No enlarged lymph nodes. Vasculature: Thoracic aorta with mild atherosclerotic change. No aneurysm. Diaphragm: Small sliding hiatal hernia. No acute features. Gallbladder and bile ducts: Gallstone within the gallbladder. Pancreas: Severe pancreatic atrophy. Bones/joints: Unremarkable. No acute fracture. Soft tissues: Chest wall soft tissues are unremarkable. IMPRESSION: 1. ? Posterior right lower lobe infiltrate. 2. ? Minor right pleural effusion. 3. ? Tracheostomy cannula is well positioned. 4. ? Cardiac structures and great vessels of the mediastinum are unremarkable. 5. ? Severe pancreatic atrophy. 6. ? Gallstone. 7. ? Sliding hiatal hernia. No acute features. Exam: XR Chest Exam date and time: 02/14/2023 12:23 AM Age: 77 years old Clinical indication: Other: Hypoxic, SOB; Prior surgery; Surgery date: 3-7 days post-operative; Patient HX: SOB, trach, hypoxic TECHNIQUE: Imaging protocol: Radiologic exam of the chest. Views: 1 view. COMPARISON: CT NECK CHEST W 01/08/2023 2:30 PM FINDINGS: Tubes, catheters and devices: Tracheostomy cannula is in position. Lungs: No acute lung infiltrates. No edema. Pleural spaces: No pleural effusion. Heart/Mediastinum: Normal heart size. Bones/joints: Unremarkable. IMPRESSION: 1. ? Clear lungs and pleural space. 2. ? Normal heart size. 3. ? Tracheostomy cannula in position. Labs 02/14/23 00:25 02/14/23 00:25 Labs: Laboratory Results - last 24 hr 02/14/23 02/14/23 02/14/23 00:25 00:25 00:25 WBC 7.63 RBC 5.21 Hgb 16.3 Hct 49.6 MCV 95 MCH 31.3 MCHC 32.9 RDW 12.3 Plt Count 292 MPV 11.3 H Immature Gran % 0.9 Neutrophils % 66.2 Lymphocytes % 18.3 Monocytes % 12.7 Eosinophils % 1.2 Basophils % 0.7 Nucleated RBC % 0.0 Absolute Neutrophils 5.05 Absolute Lymphocytes 1.40 Absolute Monocytes 0.97 H Absolute Eosinophils 0.09 Absolute Basophils 0.05 D-Dimer VBG pH VBG pCO2 VBG pO2 VBG HCO3 VBG Total CO2 VBG O2 Saturation VBG Base Excess Sodium 135 L Potassium 3.6 Chloride 98 Carbon Dioxide 30.9 Anion Gap 6.1 BUN 30 H Creatinine 2.0 H Est GFR (CKD-EPI 2020) 34.16 Glucose 130 H Calcium 10.0 Total Bilirubin 0.7 AST 19 ALT 27 Alkaline Phosphatase 60 Troponin I < 50 NT-Pro-B Natriuret Pep 245 Total Protein 6.9 Albumin 2.6 L COVID-19 Source Nasopharynx SARS-CoV-2 (PCR) Negative Influenza Type A (PCR) Negative Influenza Type B (PCR) Negative RSV (PCR) Negative 02/14/23 02/14/23 00:25 01:20 WBC RBC Hgb Hct MCV MCH MCHC RDW Plt Count MPV Immature Gran % Neutrophils % Lymphocytes % Monocytes % Eosinophils % Basophils % Nucleated RBC % Absolute Neutrophils Absolute Lymphocytes Absolute Monocytes Absolute Eosinophils Absolute Basophils D-Dimer 797 H VBG pH 7.32 VBG pCO2 58 H VBG pO2 38 VBG HCO3 30 H VBG Total CO2 27 VBG O2 Saturation 66 VBG Base Excess 4 H Sodium Potassium Chloride Carbon Dioxide Anion Gap BUN Creatinine Est GFR (CKD-EPI 2020) Glucose Calcium Total Bilirubin AST ALT Alkaline Phosphatase Troponin I NT-Pro-B Natriuret Pep Total Protein Albumin COVID-19 Source SARS-CoV-2 (PCR) Influenza Type A (PCR) Influenza Type B (PCR) RSV (PCR) Last Vital Signs Temp 36.9 C 02/14/23 03:15 Pulse 80 02/14/23 04:32 Resp 19 02/14/23 04:32 BP 76/40 L 02/14/23 04:35 Pulse Ox 95 02/14/23 04:32 Time Spent Time spent with Patient: >75 minutes Time was spent: preparing to see the patient(eg.review tests), obtaining and/or reviewing separately otained hiistory, ordering medications,tests, procedures, referring, communicating with other health manager wound care, indepentently interpreting results and care coordination
[2023-02-14] MEDS: DOXYCYCLINE 100 MG in Normal Saline 100 ML IVPB ×2 (06:08→20:11)
[2023-02-14 06:28] LABS: Bilirubin Small (Negative); Blood Moderate (Negative); Clarity Sl Cloudy (Clear); Glucose Negative (Negative); Ketones 15 mg/dL (Negative); Leukocyte Esterase Negative (Negative); Nitrite Negative (Negative); Specific Gravity 1.025 (1.005-1.025); pH 5.5 (5-8)
[2023-02-14 06:34] LABS: WBC 0-2 HPF (0-5)
[2023-02-14 06:35] LABS: Bacteria Few HPF (Negative); C & S Indicated? Yes; Casts 0-2 Coarse Granular LPF (Negative); Crystals Few Amorphous HPF (Negative); Epithelial Cells Few HPF (Negative); Mucus Negative (Negative)
[2023-02-14 06:37] LABS: HCT 45.1 % (40.0-50.0); HGB 14.8 g/dL (13.5-17.5); MCH 31.6 pg (27.0-33.0); MCHC 32.8 % (32.0-36.0); MCV 96 fL (80-95); MPV 12.1 fL (8.0-11.0); Platelet Count 242 10^3/uL (130-400); RBC 4.68 10^6/uL (4.36-5.78); RDW 12.7 % (11.8-14.1); RDW-SD 45.1 fL; WBC 9.46 10^3/uL (4.4-10.8)
[2023-02-14 06:56] LABS: ALT 23 U/L (16-63); AST 15 U/L (15-37); Albumin 2.5 g/dL (3.4-5.0); Alkaline Phosphatase 54 U/L (46-116); BUN 32 mg/dL (7-18); Bilirubin, Total 0.7 mg/dL (0.2-1.0); CREATININE 2.7 mg/dL (0.70-1.30); Calcium 9.6 mg/dL (8.5-10.1); Chloride 100 mmol/L (98-107); Estimated GFR 23.83 (mL/min/1.73m2); Glucose 129 mg/dL (74-106); Magnesium 2.2 mg/dL (1.8-2.4); Potassium 3.9 mmol/L (3.5-5.1); Sodium 140 mmol/L (136-145); Total Protein 6.5 g/dL (6.4-8.2)
[2023-02-14 07:25] LABS: Hemoglobin A1C 6.1 % (<5.7)
[2023-02-14 07:36] LABS: Lab Add On Test DONE
[2023-02-14] MEDS: Apixaban 5 MG TAB PO ×2 (07:46→21:03)
[2023-02-14] MEDS: guaiFENesin 600 MG TABCR PO ×2 (07:46→21:03)
[2023-02-14] MEDS: Omeprazole 20 MG CAPCR 40 MG PO (07:46)
[2023-02-14] MEDS: Citalopram 20 MG TAB PO (07:46)
[2023-02-14 07:51] LABS: Creatine Kinase 58 U/L (39-308)
--- NOTE | 2023-02-14 08:00 | DI.US_ITS ---
APPROVED REPORT EXAM: Comprehensive 2D, Doppler, and color-flow Echocardiogram Patient Location: In-Patient Room/Bed: ICU Disposal Man: Gi Marshall RDCS (AE) Indications: Hypotensive, SOB, COPD Other Information Study Quality: Technically Difficult. Technically limited study due to body habitus, inability to pos ition patient exam done supine bedside icu. Conclusion Technically difficult and suboptimal study Left ventricle appears grossly normal in size, wall thickness and systolic function. Segmental wall motion abnormalities cannot be excluded There is stage I diastolic dysfunction Right ventricle appears grossly normal in size Both atria are normal in size No structural or hemodynamically significant valvular disease is identified Wall motion Left Ventricle Technically limited parasternal imaging. The overall left ventricular systolic function appears jessica l. There is normal LV segmental wall motion. There is no ventricular septal defect visualized. LVEF i s 59%. Right Ventricle Right ventricle is grossly normal in size. Right ventricular systolic function could not be assessed. Atria The left atrium size is normal. The right atrium size is normal. The interatrial septum is intact wit h no evidence for an atrial septal defect. Aortic Valve The aortic valve is normal in structure. There is no aortic valvular stenosis. No aortic regurgitatio n is present. Mitral Valve The mitral valve is normal in structure. No evidence of mitral valve stenosis. Trace mitral regurgita tion. Tricuspid Valve The tricuspid valve is normal in structure. There is no tricuspid valve stenosis. Trace tricuspid reg urgitation. Unable to assess PA pressure. Pulmonic Valve Pulmonic valve is not well visualized. No evidence of pulmonic valve stenosis. Great Vessels The aortic root is normal in size. Ascending aorta is not well visualized. IVC is normal in size and collapses >50% with normal respiration. Pericardium There is no pericardial effusion. 2D Dimensions Ao Root d 3.55 cm M: 3.1 - 3.7 LV Vol A2C d MOD 66.5 mL LVEF (Abel's) 52.64 % M: 52 - 72 LV Vol A4C d MOD 103.8 mL LV Volume 59.52 mL M: 62 - 150 LA vol/ BSA A2C s A-L 17.2 mL/m2 LV Volume Index 23.90 mL/m2 M: 34 - 74 LA vol/ BSA A4C s A-L 15.1 mL/m2 LV Vol Biplane MOD 84.9 mL LA Vol/ BSA Biplane s A-L 16.8 mL/m2 LA Area A4C s MOD 14.87 cm2 LA Area A2C s MOD 16.53 cm2 LV EF A4C MOD 58.5 % LV EF A2C MOD 59.0 % LV EF Biplane MOD 52.6 % SV 44.71 mL SV Index 17.95 mL/m2 LV Diastology MV E' medial 0.067 (>0.07 m/s) E/A Ratio 0.6 LV E/e MED 9.70 (<14) MV E Vmax 0.65 (0.4-1.3 m/s) MV E' lateral 0.099 (>0.1 m/s) MV A Vmax 1.00 (0.4-1.3 m/s) LV E/e LAT 6.50 (<14) MV E/A Ratio 0.64 MV E/E' medial 9.73 MV E/E' lateral 6.54 Aortic Valve LVOT Area 3.53 cm2 AoV Area Vmax 3.11 cm2 LVOT Vmax 1.36 m/s AoV Area/ BSA (Vmax) 1.25 cm2/m2 LVOT Mean Chon. 0.88 m/s PANCHITO Mean Chon. 2.95 cm2 LVOT Peak Grad 7.4 mmHg PANCHITO Mean Chon. Index 1.18 cm2/m2 LVOT Mean Grad 3.7 mmHg LVOT VTI 0.289 m LVOT Diam s 2.10 cm AoV Vmax 1.55 m/s Velocity Ratio 0.88 AoV Mean Chon. 1.06 m/s AoV Peak Grad 9.6 mmHg LVOT SV 102.07 mL AoV Mean Grad 5.0 mmHg AoV VTI 0.280 m AoV Area VTI 3.64 cm2 AoV Area/ BSA (VTI) 1.46 cm/m2 Mitral Valve MV DT 304 (160-240 msec) MV PHT 88 msec MV Area PHT 2.49 cm2
--- NOTE | 2023-02-14 08:55 | PGE_ITS ---
Date of Service Date of service: 02/14/23 Time of Service: 08:55 Assessment and Plan Assessment and plan (1) Acute respiratory failure with hypoxia: Status: Acute Assessment and plan: Due to pneumonia, present on admission. Location of pneumonia suggests possibility of aspiration. Continue antibiotics (vancomycin, zosyn changed to cefepime, doxycycline). Checking MRSA nares, sputum culture, urine for strep, legionella, and sputum for mycoplasma. Would continue steroids for now. Dr Hammond was going to investigate what nebulized medications were available at our pharmacy to attempt to find a long acting regimen. Wean O2 as tolerated. Continue mucinex. Consult speech therapy to ensure aspiration is not contributing. The patient is DNR/DNI. The patient is interested in going home on hospice. Palliative care is meeting with him today to discuss the goals for this hospitalization. (2) Hypotension: Status: Acute Assessment and plan: The patient is not in obvious septic shock. Lactate is barely elevated. I question accuracy of BPs as they do not correlate clinically with the patient in front of me - he is pretty asymptomatic. However, he does have an RICCARDO. We have not been able to continue IV hydration due to him appearing fluid overloaded at this time. Started on midodrine. Continue steroids. I have introduced the idea of a PICC line to the patient. They are thinking about it. I do not want to push anything the patient would consider too aggressive given the overall goal of going home on hospice tomorrow. Continue treatment of infection. (3) Pneumonia: Status: Acute Assessment and plan: As above Qualifiers: Pneumonia type: due to unspecified organism Laterality: right Lung location: lower lobe of lung Qualified Code(s): J18.9 - Pneumonia, unspecified organism (4) Laryngeal carcinoma: Status: Chronic Assessment and plan: s/p tracheostomy. Palliative care and hospice are consulted. Patient is interested in going home with hospice. (5) Asthma-COPD overlap syndrome: Status: Chronic Assessment and plan: As above (6) PAF (paroxysmal atrial fibrillation): Status: Chronic Assessment and plan: Continue apixaban. Not requiring rate control at this time. (7) RICCARDO (acute kidney injury): Status: Acute Assessment and plan: Hold nephrotoxic medications. This includes changing zosyn to cefepime. Obtain FeNa. appears to be fluid overloaded, so will hold off of IV hydration for now. (8) DVT prophylaxis: Status: Acute Assessment and plan: on apixaban (9) Discharge planning issues: Status: Acute Assessment and plan: DNR/DNI Keep in ICU. Discussed with Dr Hammond. Total Critical Care Time 40 minutes. Subjective Subjective Interval history since last seen: Mr Gerber states he is not feeling too bad right now. He remembers meeting me before and that I am from the [facility]. He denies pain, anxiety, shortness of b reath, nausea. He has not had difficulty swallowing and does not have a PEG tube. He is very clear with me that he is DNR/DNI. He was awaiting a hospice consult as outpatient, and I informed him we can invite hospice to meet with him here. He is on humidified heated O2 at 52% FiO2 and 30L. He has been using inhalers via the trach at home. Exam Narrative Exam Narrative: General: Pleasant obese male who has a tracheostomy tube attached to humidified heated high flow tubing (52% FiO2, 30 L). Appears comfortable.Communicates by mouthing and writing on a dry erase board HEENT: EOMI, MMM, trach site dressed - c/d/i Heart: RRR, no m/r/g Lungs: sounds of moist respiratory secretions Abdomen: soft, nontender, nondistended Extremities: trace edema BLEs Objective Last Vital Signs Temp 36.3 C L 02/14/23 07:54 Pulse 68 02/14/23 06:47 Resp 16 02/14/23 06:50 BP 95/60 L 02/14/23 06:47 Pulse Ox 93 02/14/23 06:50 Laboratory Results - last 24 hr 02/14/23 02/14/23 02/14/23 00:25 00:25 00:25 WBC 7.63 RBC 5.21 Hgb 16.3 Hct 49.6 MCV 95 MCH 31.3 MCHC 32.9 RDW 12.3 Plt Count 292 MPV 11.3 H Immature Gran % 0.9 Neutrophils % 66.2 Lymphocytes % 18.3 Monocytes % 12.7 Eosinophils % 1.2 Basophils % 0.7 Nucleated RBC % 0.0 Absolute Neutrophils 5.05 Absolute Lymphocytes 1.40 Absolute Monocytes 0.97 H Absolute Eosinophils 0.09 Absolute Basophils 0.05 D-Dimer VBG pH VBG pCO2 VBG pO2 VBG HCO3 VBG Total CO2 VBG O2 Saturation VBG Base Excess Sodium 135 L Potassium 3.6 Chloride 98 Carbon Dioxide 30.9 Anion Gap 6.1 BUN 30 H Creatinine 2.0 H Est GFR (CKD-EPI 2020) 34.16 Glucose 130 H Hemoglobin A1c Calcium 10.0 Magnesium Total Bilirubin 0.7 AST 19 ALT 27 Alkaline Phosphatase 60 Creatine Kinase Troponin I < 50 NT-Pro-B Natriuret Pep 245 Total Protein 6.9 Albumin 2.6 L TSH Urine Color Urine Clarity Urine pH Ur Specific [place] Urine Protein Urine Ketones Urine Blood Urine Nitrite Urine Bilirubin Urine Urobilinogen Ur Leukocyte Esterase Urine RBC Urine WBC Ur Epithelial Cells Urine Crystals Urine Bacteria Urine Casts Urine Mucus Ur Culture Indicated? Urine Glucose COVID-19 Source Nasopharynx SARS-CoV-2 (PCR) Negative Influenza Type A (PCR) Negative Influenza Type B (PCR) Negative RSV (PCR) Negative Add-On Test Request 02/14/23 02/14/23 02/14/23 00:25 01:20 05:50 WBC RBC Hgb Hct MCV MCH MCHC RDW Plt Count MPV Immature Gran % Neutrophils % Lymphocytes % Monocytes % Eosinophils % Basophils % Nucleated RBC % Absolute Neutrophils Absolute Lymphocytes Absolute Monocytes Absolute Eosinophils Absolute Basophils D-Dimer 797 H VBG pH 7.32 VBG pCO2 58 H VBG pO2 38 VBG HCO3 30 H VBG Total CO2 27 VBG O2 Saturation 66 VBG Base Excess 4 H Sodium Potassium Chloride Carbon Dioxide Anion Gap BUN Creatinine Est GFR (CKD-EPI 2020) Glucose Hemoglobin A1c Calcium Magnesium Total Bilirubin AST ALT Alkaline Phosphatase Creatine Kinase Troponin I NT-Pro-B Natriuret Pep Total Protein Albumin TSH 1.70 Urine Color Urine Clarity Urine pH Ur Specific [place] Urine Protein Urine Ketones Urine Blood Urine Nitrite Urine Bilirubin Urine Urobilinogen Ur Leukocyte Esterase Urine RBC Urine WBC Ur Epithelial Cells Urine Crystals Urine Bacteria Urine Casts Urine Mucus Ur Culture Indicated? Urine Glucose COVID-19 Source SARS-CoV-2 (PCR) Influenza Type A (PCR) Influenza Type B (PCR) RSV (PCR) Add-On Test Request 02/14/23 02/14/23 02/14/23 05:50 05:50 05:50 WBC 9.46 RBC 4.68 Hgb 14.8 Hct 45.1 MCV 96 H MCH 31.6 MCHC 32.8 RDW 12.7 Plt Count 242 MPV 12.1 H Immature Gran % Neutrophils % Lymphocytes % Monocytes % Eosinophils % Basophils % Nucleated RBC % Absolute Neutrophils Absolute Lymphocytes Absolute Monocytes Absolute Eosinophils Absolute Basophils D-Dimer VBG pH VBG pCO2 VBG pO2 VBG HCO3 VBG Total CO2 VBG O2 Saturation VBG Base Excess Sodium 140 Potassium 3.9 Chloride 100 Carbon Dioxide 29.0 Anion Gap 11.0 BUN 32 H Creatinine 2.7 H Est GFR (CKD-EPI 2020) 23.83 Glucose 129 H Hemoglobin A1c 6.1 H Calcium 9.6 Magnesium 2.2 Total Bilirubin 0.7 AST 15 ALT 23 Alkaline Phosphatase 54 Creatine Kinase Troponin I NT-Pro-B Natriuret Pep Total Protein 6.5 Albumin 2.5 L TSH Urine Color Urine Clarity Urine pH Ur Specific [place] Urine Protein Urine Ketones Urine Blood Urine Nitrite Urine Bilirubin Urine Urobilinogen Ur Leukocyte Esterase Urine RBC Urine WBC Ur Epithelial Cells Urine Crystals Urine Bacteria Urine Casts Urine Mucus Ur Culture Indicated? Urine Glucose COVID-19 Source SARS-CoV-2 (PCR) Influenza Type A (PCR) Influenza Type B (PCR) RSV (PCR) Add-On Test Request 02/14/23 02/14/23 02/14/23 05:50 05:50 06:15 WBC RBC Hgb Hct MCV MCH MCHC RDW Plt Count MPV Immature Gran % Neutrophils % Lymphocytes % Monocytes % Eosinophils % Basophils % Nucleated RBC % Absolute Neutrophils Absolute Lymphocytes Absolute Monocytes Absolute Eosinophils Absolute Basophils D-Dimer VBG pH VBG pCO2 VBG pO2 VBG HCO3 VBG Total CO2 VBG O2 Saturation VBG Base Excess Sodium Potassium Chloride Carbon Dioxide Anion Gap BUN Creatinine Est GFR (CKD-EPI 2020) Glucose Hemoglobin A1c Calcium Magnesium Total Bilirubin AST ALT Alkaline Phosphatase Creatine Kinase 58 Troponin I NT-Pro-B Natriuret Pep Total Protein Albumin TSH Urine Color Yellow Urine Clarity Sl Cloudy Urine pH 5.5 Ur Specific [place] 1.025 Urine Protein 30 H Urine Ketones 15 H Urine Blood Moderate H Urine Nitrite Negative Urine Bilirubin Small H Urine Urobilinogen 1.0 H Ur Leukocyte Esterase Negative Urine RBC 5-10 H Urine WBC 0-2 Ur Epithelial Cells Few Urine Crystals Few Amorphous Urine Bacteria Few Urine Casts 0-2 Coarse Granular Urine Mucus Negative Ur Culture Indicated? Yes Urine Glucose Negative COVID-19 Source SARS-CoV-2 (PCR) Influenza Type A (PCR) Influenza Type B (PCR) RSV (PCR) Add-On Test Request DONE Objective Narrative Objective Narrative: Echo: Technically difficult and suboptimal study Left ventricle appears grossly normal in size, wall thickness and systolic function.? Segmental wall motion abnormalities cannot be excluded There is stage I diastolic dysfunction Right ventricle appears grossly normal in size Both atria are normal in size No structural or hemodynamically significant valvular disease is identified Multi-Disciplinary Checklist Lines/Tubes CENTRAL LINE: no ARTERIAL LINE: no LUJAN: yes, Lujan Day#: 1 ENDOTRACHEAL TUBE: no ICU Maintenance GLUCOSE 140-180mg/dL: yes NUTRITION AT GOAL: yes PRESSURE ULCER: no RESTRAINTS: no ANTIBIOTICS(if yes, consider Stewardship): Yes Social Issues FAMILY UPDATED: yes PT/OT: yes GOALS/DISPOSITION/DELIVERY ASSOCIATE: yes CODE STATUS: DNR/DNI Prophylaxis DVT PROPHYLAXIS: no Reason/Intervention: on anticoagulation GI PROPHYLAXIS: yes, Indication: on steroids Time Spent with Patient Time Spent with Patient: 35-49 minutes Time was spent: preparing to see the patient(eg.review tests), obtaining and/or reviewing separately otained hiistory, ordering medications,tests, procedures, referring, communicating with other health district manager primary care sales, indepentently interpreting results, counseling the patient and care coordination
--- NOTE | 2023-02-14 09:13 | W.PULMCC ---
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 fib - hold rate control - on Eliquis Hypotension - due to sepsis - started midodrine, fludrocortisone (hydrocort is on back order) - LR boluses prn as long as resp status is stable Renal: RICCARDO - s/p IVF - I/O's - reassess daily I&O: Intake & Output 02/11/23 02/12/23 02/13/23 02/14/23 23:59 23:59 23:59 23:59 Intake Total 1300 / 1300 Balance 1300 / 1300 Weight 137.5 kg Daily Fluid Goal:: even to slightly positive GI Nutrition: Nutrition - speech has been consulted - concern for aspiration Infectious Disease: RLL pneumonia - airway clearance as above - nebs as above - on vanc - MRSA nasres ordered and can DC if it returns negative - changed Zosyn to cefepime due to renal failure - continue doxy - antigen testing pending - sputum culture yet to be collected Hematologic: Laryngeal cancer [place] [facility] [place] appt with [place]ology Neurologic: No acute concerns Endocrine: No acute concerns Lines: Trach Quesada Prophylaxis: Eliquis Omeprazole Code Status: Resuscitation Status DNR/DNI Subjective Critical and life-threatening events over the past 24 hours: This is a 77 yo whom I have seen in clinic for COPD but who was 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 He has a history of this in 2009 which was treated with surgery and radiation. He underwent tracheostomy recently (02/03/23) and presents today with increase purulent secretions and dyspnea. He was also found to have an RICCARDO. He is having significant sputum production today and is requiring 60% FiO2. Exam Narrative Exam Narrative: Gen: NAD, normal respiratory effort, well-nourished HENT: PERRL Chest: No respiratory distress, normal appearance of chest with trach, bilateral crackles, limited airflow RLL Heart: regular rate and rhythym, no murmurs, rubs or gallops Abdomen: Non-distended, soft, non tender Extremities: No clubbing, edema, cyanosis, rashes Neuro: AAOx3 , non focal Psych: cooperative, appropriate mental affect Most Recent VS/Results Last Vital Signs Temp 36.3 C L 02/14/23 07:54 Pulse 92 H 02/14/23 08:35 Resp 20 02/14/23 08:35 BP 95/60 L 02/14/23 06:47 Pulse Ox 94 02/14/23 08:35 Laboratory Results - last 24 hr 02/14/23 02/14/23 02/14/23 00:25 00:25 00:25 WBC 7.63 RBC 5.21 Hgb 16.3 Hct 49.6 MCV 95 MCH 31.3 MCHC 32.9 RDW 12.3 Plt Count 292 MPV 11.3 H Immature Gran % 0.9 Neutrophils % 66.2 Lymphocytes % 18.3 Monocytes % 12.7 Eosinophils % 1.2 Basophils % 0.7 Nucleated RBC % 0.0 Absolute Neutrophils 5.05 Absolute Lymphocytes 1.40 Absolute Monocytes 0.97 H Absolute Eosinophils 0.09 Absolute Basophils 0.05 D-Dimer VBG pH VBG pCO2 VBG pO2 VBG HCO3 VBG Total CO2 VBG O2 Saturation VBG Base Excess Sodium 135 L Potassium 3.6 Chloride 98 Carbon Dioxide 30.9 Anion Gap 6.1 BUN 30 H Creatinine 2.0 H Est GFR (CKD-EPI 2020) 34.16 Glucose 130 H Hemoglobin A1c Calcium 10.0 Magnesium Total Bilirubin 0.7 AST 19 ALT 27 Alkaline Phosphatase 60 Creatine Kinase Troponin I < 50 NT-Pro-B Natriuret Pep 245 Total Protein 6.9 Albumin 2.6 L TSH Urine Color Urine Clarity Urine pH Ur Specific [place] Urine Protein Urine Ketones Urine Blood Urine Nitrite Urine Bilirubin Urine Urobilinogen Ur Leukocyte Esterase Urine RBC Urine WBC Ur Epithelial Cells Urine Crystals Urine Bacteria Urine Casts Urine Mucus Ur Culture Indicated? Urine Glucose COVID-19 Source Nasopharynx SARS-CoV-2 (PCR) Negative Influenza Type A (PCR) Negative Influenza Type B (PCR) Negative RSV (PCR) Negative Add-On Test Request 02/14/23 02/14/23 02/14/23 00:25 01:20 05:50 WBC RBC Hgb Hct MCV MCH MCHC RDW Plt Count MPV Immature Gran % Neutrophils % Lymphocytes % Monocytes % Eosinophils % Basophils % Nucleated RBC % Absolute Neutrophils Absolute Lymphocytes Absolute Monocytes Absolute Eosinophils Absolute Basophils D-Dimer 797 H VBG pH 7.32 VBG pCO2 58 H VBG pO2 38 VBG HCO3 30 H VBG Total CO2 27 VBG O2 Saturation 66 VBG Base Excess 4 H Sodium Potassium Chloride Carbon Dioxide Anion Gap BUN Creatinine Est GFR (CKD-EPI 2020) Glucose Hemoglobin A1c Calcium Magnesium Total Bilirubin AST ALT Alkaline Phosphatase Creatine Kinase Troponin I NT-Pro-B Natriuret Pep Total Protein Albumin TSH 1.70 Urine Color Urine Clarity Urine pH Ur Specific [place] Urine Protein Urine Ketones Urine Blood Urine Nitrite Urine Bilirubin Urine Urobilinogen Ur Leukocyte Esterase Urine RBC Urine WBC Ur Epithelial Cells Urine Crystals Urine Bacteria Urine Casts Urine Mucus Ur Culture Indicated? Urine Glucose COVID-19 Source SARS-CoV-2 (PCR) Influenza Type A (PCR) Influenza Type B (PCR) RSV (PCR) Add-On Test Request 02/14/23 02/14/23 02/14/23 05:50 05:50 05:50 WBC 9.46 RBC 4.68 Hgb 14.8 Hct 45.1 MCV 96 H MCH 31.6 MCHC 32.8 RDW 12.7 Plt Count 242 MPV 12.1 H Immature Gran % Neutrophils % Lymphocytes % Monocytes % Eosinophils % Basophils % Nucleated RBC % Absolute Neutrophils Absolute Lymphocytes Absolute Monocytes Absolute Eosinophils Absolute Basophils D-Dimer VBG pH VBG pCO2 VBG pO2 VBG HCO3 VBG Total CO2 VBG O2 Saturation VBG Base Excess Sodium 140 Potassium 3.9 Chloride 100 Carbon Dioxide 29.0 Anion Gap 11.0 BUN 32 H Creatinine 2.7 H Est GFR (CKD-EPI 2020) 23.83 Glucose 129 H Hemoglobin A1c 6.1 H Calcium 9.6 Magnesium 2.2 Total Bilirubin 0.7 AST 15 ALT 23 Alkaline Phosphatase 54 Creatine Kinase Troponin I NT-Pro-B Natriuret Pep Total Protein 6.5 Albumin 2.5 L TSH Urine Color Urine Clarity Urine pH Ur Specific [place] Urine Protein Urine Ketones Urine Blood Urine Nitrite Urine Bilirubin Urine Urobilinogen Ur Leukocyte Esterase Urine RBC Urine WBC Ur Epithelial Cells Urine Crystals Urine Bacteria Urine Casts Urine Mucus Ur Culture Indicated? Urine Glucose COVID-19 Source SARS-CoV-2 (PCR) Influenza Type A (PCR) Influenza Type B (PCR) RSV (PCR) Add-On Test Request 02/14/23 02/14/23 02/14/23 05:50 05:50 06:15 WBC RBC Hgb Hct MCV MCH MCHC RDW Plt Count MPV Immature Gran % Neutrophils % Lymphocytes % Monocytes % Eosinophils % Basophils % Nucleated RBC % Absolute Neutrophils Absolute Lymphocytes Absolute Monocytes Absolute Eosinophils Absolute Basophils D-Dimer VBG pH VBG pCO2 VBG pO2 VBG HCO3 VBG Total CO2 VBG O2 Saturation VBG Base Excess Sodium Potassium Chloride Carbon Dioxide Anion Gap BUN Creatinine Est GFR (CKD-EPI 2020) Glucose Hemoglobin A1c Calcium Magnesium Total Bilirubin AST ALT Alkaline Phosphatase Creatine Kinase 58 Troponin I NT-Pro-B Natriuret Pep Total Protein Albumin TSH Urine Color Yellow Urine Clarity Sl Cloudy Urine pH 5.5 Ur Specific [place] 1.025 Urine Protein 30 H Urine Ketones 15 H Urine Blood Moderate H Urine Nitrite Negative Urine Bilirubin Small H Urine Urobilinogen 1.0 H Ur Leukocyte Esterase Negative Urine RBC 5-10 H Urine WBC 0-2 Ur Epithelial Cells Few Urine Crystals Few Amorphous Urine Bacteria Few Urine Casts 0-2 Coarse Granular Urine Mucus Negative Ur Culture Indicated? Yes Urine Glucose Negative COVID-19 Source SARS-CoV-2 (PCR) Influenza Type A (PCR) Influenza Type B (PCR) RSV (PCR) Add-On Test Request DONE Review of Systems All systems reviewed & are unremarkable except as noted in HPI and below Time spent with patient Time spent in Critical Care: 45 Time spent in Critical care included: Chart review, Documenting critically ill care, Time at immediate bedside and Discussing critically ill care with other medical staff
--- NOTE | 2023-02-14 09:51 | PDOC.CMIN ---
- If Service Date Differs Date of service: 02/14/23 Time of Service: 09:51 Care Management Initial Assess REASON FOR HOSPITALIZATION:: Right lower lobe pneumonia, hypoxic respiratory failure PAST MEDICAL HISTORY/PAST SURGICAL HISTORY:: All Active Problems. Acute dehydration (Acute). PAF (paroxysmal atrial fibrillation) (Chronic). Acute respiratory failure with hypoxia (Acute). Pneumonia (Acute). Acute respiratory distress (Acute). Dyspnea (Acute). Laryngeal carcinoma (Chronic). Asthma-COPD overlap syndrome (Acute). Former smoker (Acute). Laryngeal dystonia (Acute). Morbid obesity (Chronic). COPD exacerbation (Acute). BPH (benign prostatic hyperplasia) (Chronic). Chronic low back pain (Chronic). Nocturia (Acute). Hyperlipidemia (Acute). Sleep apnea, obstructive (Chronic). Chronic GERD (Acute). Hoarseness (Chronic). COPD (chronic obstructive pulmonary disease) (Acute). Hypertensive disorder (Chronic). Cancer (Acute). Larynx. Alcohol abuse (Chronic). Panic disorder (Acute). Obesity (Chronic). Prediabetes (Chronic). Lower back pain (Acute). Urinary incontinence (Acute). Medical History. History of BPH PREVIOUS FUNCTIONAL STATUS/SOCIAL/FAMILY SUPPORTS:: Resides in [place], [place] with his , Polly. He is independent at baseline in the community. CURRENT FUNCTIONAL STATUS:: Darion was sitting up in his bed visiting with family, and CM spoke to his family regarding his discharge plan. Aurora from Hospice visited with the family this morning, and Darion indicated that he would like to return home on hospice, as soon as possible. Celeste, Palliative, was planning to visit to discuss his plan to return home, as he is on high flow O2, and is being treated with antibiotics for pneumonia. Hospice is arranging equipment delivery, which will likely happen tomorrow. CM will continue to follow. ADVANCE DIRECTIVES:: Not on file, Palliative has been consulted to discuss goals of care, and complete COLST form. Has patient been provided with info about the portal/API?: Yes Did the patient sign up for the portal?: No CODE STATUS:: DNR/DNI INSURANCE COVERAGE / FINANCIAL ISSUES:: [employer] CURRENT HOME/COMMUNITY SERVICES/EQUIPMENT:: JOHANNE CARRILLOGLASS INSTALLER TECHNICIAN PHYSICIAN:: Linette Funk POTENTIAL DISCHARGE NEEDS:: Palliative/Hospice consult PATIENT/FAMILY EDUCATION NEEDS:: Review discharge instructions and limitations, discussion of self care needs including ask me three. ANTICIPATED BARRIERS TO DISCHARGE:: None. TRANSPORTATION:: Via private vehicle by family. PLAN:: Darion will have a hospice consult today to determine his plan of care, as he is considering returning home on hospice. Currently, his pneumonia is being treated. His transportation will be determined by his mobility at the time of discharge, when he returns home, likely on hospice. He will follow up with his discharge plan of care. CM will continue to follow.
[2023-02-14] MEDS: Budesonide 0.5 MG/2 ML UPD VIAL UPD ×2 (10:05→21:05)
[2023-02-14] MEDS: Lactated Ringers 250 ML IV ×2 (10:30→15:10)
[2023-02-14] MEDS: Midodrine 2.5 MG TAB 5 MG PO ×3 (10:48→21:03)
[2023-02-14 10:53] LABS: Lactate 1.7 mmol/L (0.6-1.4)
--- NOTE | 2023-02-14 12:15 | SP_ITS ---
Date of service: 02/14/23 Time of Service: 12:15 Objective Objective NON-TREATMENT NOTE: SPEECH & SWALLOW RECOMMENDATIONS Given palliative met with patient and patient/family have expressed preference for comfort measures with discharge on hospice as soon as home is safe/ready, my time in the room with patient/family focused primarily on discussion of goals for eating and subsequent recommendations/education, rather than a true evaluation. Education provided on aspiration precautions, safety vs quality of life for thin vs thick or solid vs pureed foods, and high suspicion of aspiration risk in setting of tracheostomy patient would like to remain on an unrestricted diet at this time, with use of safe swallow strategies and risk management strategies in place as opposed to proceeding with MBSS or diet modification. It is very likely that patient is aspirating his secretions (and food/drink) given reported frequency of suctioning required before and during meals. Patient/family describes adequate care and use of PMV (speaking valve) at home including cleaning. It is unclear to me at this time if he will be discharged on ventilator or if he will be on room air only during the day when he is discharged. If supplemental oxygenation is required via trach, and patient would like to be able to speak, an in-line speaking valve would be needed through [facility]. Patient is not yet performing speaking valve trials this hospitalization, would require STAFF RESPIRATORY THERAPIST collaboration with pulmonology and nursing to wean him. If patient is to go home before ensuring tolerance of room air, and use of speaking valve is desired for quality of life/communication, STAFF RESPIRATORY THERAPIST home health should be placed. Patient's family is quite good at reading his lips and he is comfortable/satisfied using a white board to write and communicate when needed. I also provided them with recommendations to think ahead to which conversations he might prioritize (e.g., directing his own care at end of life, emotional communication with family, etc) and to develop a plan for him to be able to express these things in the event that writing becomes too difficult. Provided instructions and resources for creating basic picture boards vs phrase/message communication boards at home. Further STAFF RESPIRATORY THERAPIST services/DISCHARGE RECOMMENDATIONS: If he qualifies, would benefit from home health STAFF RESPIRATORY THERAPIST consult to promote adoption of alternative communication methods, facilitate speaking valve use if applicable, and for continued education on aspiration precautions with focus on quality of life/comfort. Diet Recommendations: Per patient preference, with precautions in place as below. Alternative means of nutrition/hydration are not indicated given patient goals of care. Medication Intake: Whole or crushed, as able, with 0-Thin Liquids or 4-Extremely Thick Liquids Alter medications only as advised by MD or Pharmacist Liquid, dissolvable, or patch medications may also be useful to consider from a palliative standpoint to ensure adequate delivery. RISK MANAGEMENT: HOB upright as tolerated; upright for all PO intake. Encourage physical mobility as tolerated. Oral hygiene q4h/every 4 hours, before/after PO intake, using friction with toothbrush or in-line suction kids on all oral structures as tolerated Suction PRN Level of Assistance/Supervision: 1:1 close supervision for all PO intake PO intake only when awake/alert? Strategies/Adaptations/Assistive Equipment: Reduce auditory and/or visual distractions when eating Provide verbal and/or visual cues to use recommended strategies Small sips and bites when eating Slow rate of intake Swallow between bites Multiple swallows Small+frequent meals throughout day Posture/Positioning Needs: Avoid meals/snacks 2-3 hours prior to reclining/sleeping, Sleep with head of bed elevated to reduce likelihood of nocturnal reflux Coding Diagnoses
[2023-02-14] MEDS: Insulin Aspart 300 UNITS/3 ML PEN SC (12:37)
[2023-02-14] MEDS: Normal Saline Flush 10 ML SYR IVP ×2 (12:47→20:10)
[2023-02-14] MEDS: methylPREDNISolone SUCC 125 MG VIAL 80 MG IVP (12:55)
[2023-02-14] MEDS: CEFEPIME 1 GM in Normal Saline 50 ML IVPB ×2 (14:00→21:42)
[2023-02-14] MEDS: Fludrocortisone 0.1 MG TAB PO (14:52)
--- NOTE | 2023-02-14 15:13 | PT.INNT ---
PT Notes Visit Reasons: Right Lower Lobe Pneumonia, Hypoxic Resperatory Fa Patient goes home on hospice tomorrow and PT order was withrawn by Dr. Reyes as of today.
--- NOTE | 2023-02-14 15:23 | W.PALLCONSUL ---
Date of service: 02/14/23 Time of Service: 12:00 History of Present Illness Narrative: Mr. Orlando is a 77 y/o M currently inpt in ICU at [facility] 2/ PNA vs aspiration s/p new trach placed 02/03/23 at [facility] 2/2 laryngeal cancer; PMHx sig for obesity, A fib, asthma/COPD, GERD, panic d/o; initial family meeting d/t pt participating in US; present Polly, daughters Sydney/Sujey, granddaughers Taqueria, Cintia, Susan, niece Christy and her Vincent - Darion is indicated that he would want comfort focused care, prioritizing returning home as soon as possible, is aware that he will not be surviving this, hospice consult this morning, will have equipment delivered to home -home is not ready at this time for a safe discharge, they will work on this today and in coordination with hospice as above -He has told them that he would want to be a DNR DNI, focused on comfort, no major interventions, would not want a central line placed, limited interventions with comfort as goal -Aspirations increasing anxiety and feeling terrified, suction at home working well to control symptoms, had difficulty eating [facility], this has been improving slightly; prior to presentation to [facility] ED their humidifier machine broke and he was out of it for 13 hours, this increased anxiety and panic which led to return to [facility] ED; preference to remain in hospital at this time -Family has had no difficulty understanding him, feels they are able to communicate appropriately he has never completed advanced directive; they are ready to rally behind him and ensure his comfort through end-of-life per staff: Continues to require high flow oxygen (FI02 50% O2/30L), sats have been 90% and better; he has been tolerating p.o. appropriately, secretions appropriate and controlled. anxious when short of breath or changes in secretions, controlled at this time -Blood pressures have been extremely soft, midodrine started, systolic holding at 92, discussion regarding central line placement for pressors in ICU -Meeting with hospice team this morning, appointment all in order, want to ensure hospital bed, oxygen and sublingual medications available -Has not returned to her baseline regarding breathing, baseline is no oxygen requirements, have not been able to step down from high flow Darion [facility], identifies normal and daughters as preferred healthcare agents, preference for comfort focused care, would want to allow a natural if imminent, DNR DNI, would not want feeding tube, okay with trial of IV fluids with comfort as goal, okay to continue antibiotics for another day to see if improved, focus on comfort. Would want to reassess treatment plan based on goals of care, tot preference to be home Assessment and Plan Assessment and plan (1) Hypotension: Status: Acute (2) Discharge planning issues: Status: Acute (3) RICCARDO (acute kidney injury): Status: Acute (4) Acute respiratory failure with hypoxia: Status: Acute (5) Pneumonia: Status: Acute Qualifiers: Laterality: right Lung location: lower lobe of lung Pneumonia type: due to unspecified organism Qualified Code(s): J18.9 - Pneumonia, unspecified organism (6) Dyspnea: Status: Acute (7) Laryngeal carcinoma: Status: Chronic (8) Morbid obesity: Status: Chronic (9) Panic disorder: Status: Acute (10) Encounter for hospice care discussion: Status: Acute (11) Physician orders for life-sustaining treatment (POLST) form indicates patient wish for [id number] status: Status: Acute (12) Advance care planning: Status: Acute (13) Palliative care encounter: Status: Acute Assessment and plan: - reviewed and completed COLST form, identifying Polly Gerber at [facility], co-agents daughter's Diane, held completion of HCA form today d/t fatigue and need for personal care - plan to continue antibiotics and fluids today, reassess tomorrow and consider d/c as aligns w/care goals; potential transition to PO abx for coverage at home if possible O2 requirements are high flow at this time, consider trial of transition to O2 as able, consider for comfort vs oxygen saturation levels - continue to review - preference for no invasive procedures, like central line placement, preference to monitor and manage w/non-invasive interventions at this time - hospice consult previously completed, working to coordinate safe discharge home tomorrow soonest, w/equipment delivery; already has suction in home, confirm hospital bed and O2 - comfort is primary goal, w/dyspnea and increased secretions providing biggest source of fear and panic, encourage liquid lorazepam as needed, ensure hospice orders include SL forms as avail Review of Systems Narrative: as per HPI PFSH All Active Problems (Updated 02/14/23 @ 15:42 by Celeste Arias NP) Palliative care encounter (Acute) Advance care planning (Acute) Physician orders for life-sustaining treatment (POLST) form indicates patient wish for ev-[id number] status (Acute) Encounter for hospice care discussion (Acute) Respiratory failure with hypoxia and hypercapnia (Acute) Hypotension (Acute) Discharge planning issues (Acute) DVT prophylaxis (Acute) RICCARDO (acute kidney injury) (Acute) Acute dehydration (Acute) PAF (paroxysmal atrial fibrillation) (Chronic) Acute respiratory failure with hypoxia (Acute) Pneumonia (Acute) Acute respiratory distress (Acute) Dyspnea (Acute) Laryngeal carcinoma (Chronic) Asthma-COPD overlap syndrome (Chronic) Former smoker (Chronic) Laryngeal dystonia (Acute) Morbid obesity (Chronic) COPD exacerbation (Acute) BPH (benign prostatic hyperplasia) (Chronic) Chronic low back pain (Chronic) Nocturia (Acute) Hyperlipidemia (Acute) Sleep apnea, obstructive (Chronic) Chronic GERD (Acute) Hoarseness (Chronic) COPD (chronic obstructive pulmonary disease) (Acute) Hypertensive disorder (Chronic) Cancer (Acute) Larynx Alcohol abuse (Chronic) Panic disorder (Acute) Obesity (Chronic) Prediabetes (Chronic) Lower back pain (Acute) Urinary incontinence (Acute) Medical History History of BPH Family History Father Lung disease Cancer Social History Smoking/Tobacco Use Status: Former Tobacco Use Quit Date: 10/24/94 Smoking risk assessment performed?: Yes Alcohol Intake: current Alcohol Intake frequency: holidays/special occasions only Drug use: Never Substance use type: does not use Do you feel safe at home: Yes Do you feel safe in your relationship?: Yes Exam Narrative Exam Narrative: General: AAOx3; older adult obsese male; lying in ICU bed; NAD HEENT: normocephalic, atraumtatic; PERRL Resp: Normal respiratory effort Psych: cooperative, appropriate MS, makes appropriate eye contact, answers questions appropriately; judgment/insight fair Results Last Vital Signs Temp 98.2 F 02/14/23 13:44 Pulse 83 02/14/23 14:29 Resp 12 04/24/23 14:45 BP 90/52 L 02/14/23 14:29 Pulse Ox 93 02/14/23 14:45 Labs 02/14/23 05:50 02/14/23 05:50 Labs: Laboratory Results - last 24 hr 02/14/23 02/14/23 02/14/23 00:25 00:25 00:25 WBC 7.63 RBC 5.21 Hgb 16.3 Hct 49.6 MCV 95 MCH 31.3 MCHC 32.9 RDW 12.3 Plt Count 292 MPV 11.3 H Immature Gran % 0.9 Neutrophils % 66.2 Lymphocytes % 18.3 Monocytes % 12.7 Eosinophils % 1.2 Basophils % 0.7 Nucleated RBC % 0.0 Absolute Neutrophils 5.05 Absolute Lymphocytes 1.40 Absolute Monocytes 0.97 H Absolute Eosinophils 0.09 Absolute Basophils 0.05 D-Dimer VBG pH VBG pCO2 VBG pO2 VBG HCO3 VBG Total CO2 VBG O2 Saturation VBG Base Excess VBG Lactate Sodium 135 L Potassium 3.6 Chloride 98 Carbon Dioxide 30.9 Anion Gap 6.1 BUN 30 H Creatinine 2.0 H Est GFR (CKD-EPI 2020) 34.16 Glucose 130 H Hemoglobin A1c Calcium 10.0 Magnesium Total Bilirubin 0.7 AST 19 ALT 27 Alkaline Phosphatase 60 Creatine Kinase Troponin I < 50 NT-Pro-B Natriuret Pep 245 Total Protein 6.9 Albumin 2.6 L TSH Urine Color Urine Clarity Urine pH Ur Specific [place] Urine Protein Urine Ketones Urine Blood Urine Nitrite Urine Bilirubin Urine Urobilinogen Ur Leukocyte Esterase Urine RBC Urine WBC Ur Epithelial Cells Urine Crystals Urine Bacteria Urine Casts Urine Mucus Ur Culture Indicated? Urine Glucose COVID-19 Source Nasopharynx SARS-CoV-2 (PCR) Negative Influenza Type A (PCR) Negative Influenza Type B (PCR) Negative RSV (PCR) Negative Add-On Test Request 02/14/23 02/14/23 02/14/23 00:25 01:20 05:50 WBC RBC Hgb Hct MCV MCH MCHC RDW Plt Count MPV Immature Gran % Neutrophils % Lymphocytes % Monocytes % Eosinophils % Basophils % Nucleated RBC % Absolute Neutrophils Absolute Lymphocytes Absolute Monocytes Absolute Eosinophils Absolute Basophils D-Dimer 797 H VBG pH 7.32 VBG pCO2 58 H VBG pO2 38 VBG HCO3 30 H VBG Total CO2 27 VBG O2 Saturation 66 VBG Base Excess 4 H VBG Lactate Sodium Potassium Chloride Carbon Dioxide Anion Gap BUN Creatinine Est GFR (CKD-EPI 2020) Glucose Hemoglobin A1c Calcium Magnesium Total Bilirubin AST ALT Alkaline Phosphatase Creatine Kinase Troponin I NT-Pro-B Natriuret Pep Total Protein Albumin TSH 1.70 Urine Color Urine Clarity Urine pH Ur Specific [place] Urine Protein Urine Ketones Urine Blood Urine Nitrite Urine Bilirubin Urine Urobilinogen Ur Leukocyte Esterase Urine RBC Urine WBC Ur Epithelial Cells Urine Crystals Urine Bacteria Urine Casts Urine Mucus Ur Culture Indicated? Urine Glucose COVID-19 Source SARS-CoV-2 (PCR) Influenza Type A (PCR) Influenza Type B (PCR) RSV (PCR) Add-On Test Request 02/14/23 02/14/23 02/14/23 05:50 05:50 05:50 WBC 9.46 RBC 4.68 Hgb 14.8 Hct 45.1 MCV 96 H MCH 31.6 MCHC 32.8 RDW 12.7 Plt Count 242 MPV 12.1 H Immature Gran % Neutrophils % Lymphocytes % Monocytes % Eosinophils % Basophils % Nucleated RBC % Absolute Neutrophils Absolute Lymphocytes Absolute Monocytes Absolute Eosinophils Absolute Basophils D-Dimer VBG pH VBG pCO2 VBG pO2 VBG HCO3 VBG Total CO2 VBG O2 Saturation VBG Base Excess VBG Lactate Sodium 140 Potassium 3.9 Chloride 100 Carbon Dioxide 29.0 Anion Gap 11.0 BUN 32 H Creatinine 2.7 H Est GFR (CKD-EPI 2020) 23.83 Glucose 129 H Hemoglobin A1c 6.1 H Calcium 9.6 Magnesium 2.2 Total Bilirubin 0.7 AST 15 ALT 23 Alkaline Phosphatase 54 Creatine Kinase Troponin I NT-Pro-B Natriuret Pep Total Protein 6.5 Albumin 2.5 L TSH Urine Color Urine Clarity Urine pH Ur Specific [place] Urine Protein Urine Ketones Urine Blood Urine Nitrite Urine Bilirubin Urine Urobilinogen Ur Leukocyte Esterase Urine RBC Urine WBC Ur Epithelial Cells Urine Crystals Urine Bacteria Urine Casts Urine Mucus Ur Culture Indicated? Urine Glucose COVID-19 Source SARS-CoV-2 (PCR) Influenza Type A (PCR) Influenza Type B (PCR) RSV (PCR) Add-On Test Request 02/14/23 02/14/23 02/14/23 05:50 05:50 06:15 WBC RBC Hgb Hct MCV MCH MCHC RDW Plt Count MPV Immature Gran % Neutrophils % Lymphocytes % Monocytes % Eosinophils % Basophils % Nucleated RBC % Absolute Neutrophils Absolute Lymphocytes Absolute Monocytes Absolute Eosinophils Absolute Basophils D-Dimer VBG pH VBG pCO2 VBG pO2 VBG HCO3 VBG Total CO2 VBG O2 Saturation VBG Base Excess VBG Lactate Sodium Potassium Chloride Carbon Dioxide Anion Gap BUN Creatinine Est GFR (CKD-EPI 2020) Glucose Hemoglobin A1c Calcium Magnesium Total Bilirubin AST ALT Alkaline Phosphatase Creatine Kinase 58 Troponin I NT-Pro-B Natriuret Pep Total Protein Albumin TSH Urine Color Yellow Urine Clarity Sl Cloudy Urine pH 5.5 Ur Specific [place] 1.025 Urine Protein 30 H Urine Ketones 15 H Urine Blood Moderate H Urine Nitrite Negative Urine Bilirubin Small H Urine Urobilinogen 1.0 H Ur Leukocyte Esterase Negative Urine RBC 5-10 H Urine WBC 0-2 Ur Epithelial Cells Few Urine Crystals Few Amorphous Urine Bacteria Few Urine Casts 0-2 Coarse Granular Urine Mucus Negative Ur Culture Indicated? Yes Urine Glucose Negative COVID-19 Source SARS-CoV-2 (PCR) Influenza Type A (PCR) Influenza Type B (PCR) RSV (PCR) Add-On Test Request DONE 02/14/23 10:48 WBC RBC Hgb Hct MCV MCH MCHC RDW Plt Count MPV Immature Gran % Neutrophils % Lymphocytes % Monocytes % Eosinophils % Basophils % Nucleated RBC % Absolute Neutrophils Absolute Lymphocytes Absolute Monocytes Absolute Eosinophils Absolute Basophils D-Dimer VBG pH VBG pCO2 VBG pO2 VBG HCO3 VBG Total CO2 VBG O2 Saturation VBG Base Excess VBG Lactate 1.7 H Sodium Potassium Chloride Carbon Dioxide Anion Gap BUN Creatinine Est GFR (CKD-EPI 2020) Glucose Hemoglobin A1c Calcium Magnesium Total Bilirubin AST ALT Alkaline Phosphatase Creatine Kinase Troponin I NT-Pro-B Natriuret Pep Total Protein Albumin TSH Urine Color Urine Clarity Urine pH Ur Specific [place] Urine Protein Urine Ketones Urine Blood Urine Nitrite Urine Bilirubin Urine Urobilinogen Ur Leukocyte Esterase Urine RBC Urine WBC Ur Epithelial Cells Urine Crystals Urine Bacteria Urine Casts Urine Mucus Ur Culture Indicated? Urine Glucose COVID-19 Source SARS-CoV-2 (PCR) Influenza Type A (PCR) Influenza Type B (PCR) RSV (PCR) Add-On Test Request
[2023-02-14] MEDS: Simvastatin 20 MG TAB PO (21:42)
[2023-02-14 23:06] LABS: Creatinine,Urine 227.93 mg/dL; Sodium, Urine 16 mmol/L
[2023-02-15] VITALS (71 sets, daily range): BP systolic 91–153; BP diastolic 45–69; PULSE 60–94; RESP 1–36; TEMP 34–37; O2SAT 91–97
[2023-02-15] MEDS: VANCOMYCIN/WATER (PEG) 1 GM/200 ML BAG IV (04:03)
[2023-02-15] MEDS: CEFEPIME 1 GM in Normal Saline 50 ML IVPB ×3 (05:39→21:10)
[2023-02-15 06:43] LABS: Abs Immature Grans 0.08 10^3/uL (0.0-0.06); Absolute Basophil Count 0.04 10^3/uL (0.0-0.2); Absolute Eosinophil Count 0.01 10^3/uL (0.0-0.7); Absolute Neutrophil Count 12.06 10^3/uL (1.2-6.7); Basophils % 0.3; Eosinophils % 0.1; HGB 13.9 g/dL (13.5-17.5); Immature Grans % 0.6; Lymphocytes % 6.6; MCH 31.4 pg (27.0-33.0); MCHC 33.1 % (32.0-36.0); MCV 95 fL (80-95); MPV 11.6 fL (8.0-11.0); Monocytes % 7.1; Neutrophils % 85.3; Platelet Count 279 10^3/uL (130-400); RBC 4.42 10^6/uL (4.36-5.78); RDW 12.4 % (11.8-14.1); RDW-SD 43.8 fL; WBC 14.14 10^3/uL (4.4-10.8)
[2023-02-15 06:49] LABS: Absolute Lymphocyte Count 0.93 10^3/uL (1.2-3.4)
[2023-02-15] MEDS: DOXYCYCLINE 100 MG in Normal Saline 100 ML IVPB ×2 (06:49→18:20)
[2023-02-15 06:54] LABS: Anion Gap 6.6 mmol/L (3-11); BUN 25 mg/dL (7-18); CO2 30.4 mmol/L (21.0-32.0); CREATININE 1.4 mg/dL (0.70-1.30); Calcium 9.5 mg/dL (8.5-10.1); Chloride 100 mmol/L (98-107); Estimated GFR 52.41 (mL/min/1.73m2); Glucose 120 mg/dL (74-106); Magnesium 2.1 mg/dL (1.8-2.4); Potassium 3.8 mmol/L (3.5-5.1); Sodium 137 mmol/L (136-145)
--- NOTE | 2023-02-15 07:11 | PUCC_ITS ---
General Date of Service Date of service: 02/15/23 Time of Service: 07:11 Reason for Admission to ICU: Hypoxic respiratory failure Assessment and Plan Assessment and plan (1) RICCARDO (acute kidney injury): Status: Acute (2) PAF (paroxysmal atrial fibrillation): Status: Chronic (3) Pneumonia: Status: Acute Qualifiers: Laterality: right Lung location: lower lobe of lung Pneumonia type: due to unspecified organism Qualified Code(s): J18.9 - Pneumonia, unspecified organism (4) Laryngeal carcinoma: Status: Chronic (5) Asthma-COPD overlap syndrome: Status: Chronic (6) Respiratory failure with hypoxia and hypercapnia: Status: Acute (7) Hypotension: Status: Acute Assessment and plan: This is a 77 yo with newly diagnosed laryngeal cancer s/p trach 1 week ago admitted for a RLL pnuemonia and respiratory failure. He is planning to go home with hospice. I have stopped his inhalers and have sent Pulmicort, Brovana and Yupelri nebulizer solutions for home use. When he goes home, he will need a trach flexible suction catheter and a home suction unit for airway clearance. I will follow up with him via telemedicine shortly after his discharge. His renal function has improved, indicating a likely pre-renal cause. Recommendations Pulmonary: Hypoxic and hypercapnic respiratory failure - advised against BiPAP given fresh trach - supplemental O2 with HFNC for sats >88% - recommend trach collar trial today - percussor to RLL - plan to go home with hospice - they should handle trach supplies, but recommend in addition to home O2, trach collar and tubing to also have felixble trach suction lines as well as a home suction machine for airway clearance. Asthma-COPD Overlap - stop inhalers - Duoneb QID while inpatient - Budesonide neb bid while inpatient - I have ordered a new nebulizer regimen to Es's: - Pulmicort bid, Brovana bid, Yupelri daily - prn Duonebs Cardiac: A. fib - hold rate control - on Eliquis Hypotension - due to sepsis - started midodrine, fludrocortisone (hydrocort is on back order) - LR boluses prn as long as resp status is stable Renal: RICCARDO - s/p IVF - I/O's - improved I&O: Intake & Output 02/12/23 02/13/23 02/14/2323 23:59 23:59 23:59 23:59 Intake Total 3410 / 3410 50 / 50 Output Total 565 / 565 270 / 270 Balance 2845 / 2845 -220 / -220 Weight 137.5 kg 139.1 kg Daily Fluid Goal:: even to slightly positive GI Nutrition: Nutrition - speech has been consulted Infectious Disease: RLL pneumonia - airway clearance as above - nebs as above - can be discharges on Augmentin for a total of a 7 day course of abx Hematologic: Laryngeal cancer - newly diagnosed at [facility] - has appt with oncology - plan for home hospice Neurologic: No acute concerns Endocrine: No acute concerns Lines: Trach Quesada - ok to remove today Prophylaxis: Eliquis Omeprazole Code Status: Resuscitation Status DNR/DNI Subjective Critical and life-threatening events over the past 24 hours: Darion is doing well today. His kidney function is improved and his oxygen requirements are much better as well. Exam Narrative Exam Narrative: Gen: NAD, normal respiratory effort, well-nourished HENT: PERRL Chest: No respiratory distress, normal appearance of chest with trach, bilateral crackles, improved aeration. Heart: regular rate and rhythym, no murmurs, rubs or gallops Abdomen: Non-distended, soft, non tender Extremities: No clubbing, edema, cyanosis, rashes Neuro: AAOx3 , non focal Psych: cooperative, appropriate mental affect Most Recent VS/Results Last Vital Signs Temp 36.6 C 02/15/23 04:18 Pulse 67 02/15/23 06:02 Resp 18 02/15/23 06:02 BP 109/56 L 02/15/23 06:02 Pulse Ox 96 02/15/23 06:02 Laboratory Results - last 24 hr 02/14/23 02/14/23 02/14/23 05:50 05:50 05:50 WBC RBC Hgb Hct MCV MCH MCHC RDW Plt Count MPV Immature Gran % Neutrophils % Lymphocytes % Monocytes % Eosinophils % Basophils % Nucleated RBC % Absolute Neutrophils Absolute Lymphocytes Absolute Monocytes Absolute Eosinophils Absolute Basophils VBG Lactate Sodium Potassium Chloride Carbon Dioxide Anion Gap BUN Creatinine Est GFR (CKD-EPI 2020) Glucose Hemoglobin A1c 6.1 H Calcium Magnesium Creatine Kinase 58 Ur Random Creatinine Ur Random Sodium Random Vancomycin Add-On Test Request DONE 02/14/23 02/14/23 02/14/23 10:48 15:37 22:45 WBC RBC Hgb Hct MCV MCH MCHC RDW Plt Count MPV Immature Gran % Neutrophils % Lymphocytes % Monocytes % Eosinophils % Basophils % Nucleated RBC % Absolute Neutrophils Absolute Lymphocytes Absolute Monocytes Absolute Eosinophils Absolute Basophils VBG Lactate 1.7 H Sodium Potassium Chloride Carbon Dioxide Anion Gap BUN Creatinine Est GFR (CKD-EPI 2020) Glucose Hemoglobin A1c Calcium Magnesium Creatine Kinase Ur Random Creatinine 227.93 Ur Random Sodium 16 Random Vancomycin 14.0 Add-On Test Request 02/15/23 02/15/23 05:55 05:55 WBC 14.14 H RBC 4.42 Hgb 13.9 Hct 42.0 MCV 95 MCH 31.4 MCHC 33.1 RDW 12.4 Plt Count 279 MPV 11.6 H Immature Gran % 0.6 Neutrophils % 85.3 Lymphocytes % 6.6 Monocytes % 7.1 Eosinophils % 0.1 Basophils % 0.3 Nucleated RBC % 0.0 Absolute Neutrophils 12.06 H Absolute Lymphocytes 0.93 L Absolute Monocytes 1.00 H Absolute Eosinophils 0.01 Absolute Basophils 0.04 VBG Lactate Sodium 137 Potassium 3.8 Chloride 100 Carbon Dioxide 30.4 Anion Gap 6.6 BUN 25 H Creatinine 1.4 H D Est GFR (CKD-EPI 2020) 52.41 Glucose 120 H Hemoglobin A1c Calcium 9.5 Magnesium 2.1 Creatine Kinase Ur Random Creatinine Ur Random Sodium Random Vancomycin Add-On Test Request Review of Systems All systems reviewed & are unremarkable except as noted in HPI and below Time spent with patient Time spent in Critical Care: 35 Time spent in Critical care included: Coordination of care, Chart review, Documenting critically ill care, Time at immediate bedside, Discussing critically ill care with other medical staff and Discussing care with family members
[2023-02-15] MEDS: Albuterol/Ipratropium 3 ML UPD VIAL UPD ×4 (07:45→20:43)
[2023-02-15] MEDS: Midodrine 2.5 MG TAB 5 MG PO ×3 (08:00→20:42)
[2023-02-15] MEDS: Budesonide 0.5 MG/2 ML UPD VIAL UPD ×2 (08:41→20:42)
[2023-02-15] MEDS: Omeprazole 20 MG CAPCR 40 MG PO (08:50)
[2023-02-15] MEDS: Apixaban 5 MG TAB PO ×2 (08:51→20:41)
[2023-02-15] MEDS: guaiFENesin 600 MG TABCR PO ×2 (08:51→09:23)
[2023-02-15] MEDS: Fludrocortisone 0.1 MG TAB PO (08:52)
[2023-02-15] MEDS: Citalopram 20 MG TAB PO (08:52)
[2023-02-15] MEDS: methylPREDNISolone SUCC 40 MG VIAL IVP (09:05)
[2023-02-15] MEDS: Normal Saline Flush 10 ML SYR IVP ×4 (09:05→18:21)
[2023-02-15] MEDS: MORPHine 2 MG/ML SYR IVP ×3 (09:19→18:20)
--- NOTE | 2023-02-15 14:54 | PGE_ITS ---
Date of Service Date of service: 02/15/23 Time of Service: 08:30 Assessment and Plan Assessment and plan (1) Acute respiratory failure with hypoxia: Status: Acute Assessment and plan: Due to pneumonia, present on admission. Location of pneumonia suggests possibility of aspiration. Continue antibiotics (vancomycin, cefepime, doxycycline). Discussed with Dr Hammond: Anticipate discharge home on augmentin tomorrow with home hospice. Would continue steroids. Dr Hammond is looking into long-acting nebulized treatments for discharge. Wean O2 as tolerated. Continue mucinex (increase dose). Speech evaluated the patient. (2) Hypotension: Status: Resolved Assessment and plan: Continue midodrine + florinef. (3) Pneumonia: Status: Acute Assessment and plan: As above Qualifiers: Pneumonia type: due to unspecified organism Laterality: right Lung location: lower lobe of lung Qualified Code(s): J18.9 - Pneumonia, unspecified organism (4) Laryngeal carcinoma: Status: Chronic Assessment and plan: s/p tracheostomy. Anticipate discharge home with hospice tomorrow. (5) Asthma-COPD overlap syndrome: Status: Chronic Assessment and plan: As above (6) PAF (paroxysmal atrial fibrillation): Status: Chronic Assessment and plan: Continue apixaban. Not requiring rate control at this time. (7) RICCARDO (acute kidney injury): Status: Acute Assessment and plan: Prerenal per FENa. Improved. Encourage PO hydration. (8) DVT prophylaxis: Status: Acute Assessment and plan: on apixaban (9) Discharge planning issues: Status: Acute Assessment and plan: DNR/DNI Keep in ICU due to need for trach care. Anticipate discharge home tomorrow with hospice. D/c son catheter. Subjective Subjective Interval history since last seen: Darion feels a little better today, but says his breathing is so so. He reports a R shoulder pain. Otherwise, no dizziness, chest pain, nausea. He would have loved to go home today, but home hospice is still working out logistics for his respiratory equipment, etc. He spent the night on 50% FiO2, 30 L. Exam Narrative Exam Narrative: General: Pleasant obese male who has a tracheostomy tube attached to humidified heated high flow tubing (50% FiO2, 30 L). Appears comfortable. Being fed by his at the time of exam HEENT: EOMI, MMM, trach site dressed - c/d/i Heart: RRR, no m/r/g Lungs: sounds of moist respiratory secretions Abdomen: soft, nontender, nondistended Extremities: trace edema BLEs Objective Last Vital Signs Temp 36.6 C 02/15/23 11:33 Pulse 69 02/15/23 12:09 Resp 18 02/15/23 12:09 BP 97/49 L 02/15/23 10:02 Pulse Ox 94 02/15/23 12:09 Laboratory Results - last 24 hr 02/14/23 02/14/23 02/14/23 00:36 15:37 22:45 WBC RBC Hgb Hct MCV MCH MCHC RDW Plt Count MPV Immature Gran % Neutrophils % Lymphocytes % Monocytes % Eosinophils % Basophils % Nucleated RBC % Absolute Neutrophils Absolute Lymphocytes Absolute Monocytes Absolute Eosinophils Absolute Basophils ABG Sample Site Cancelled ABG pH Cancelled ABG pCO2 Cancelled ABG pO2 Cancelled ABG HCO3 Cancelled ABG Total CO2 Cancelled ABG O2 Saturation Cancelled ABG Base Excess Cancelled Oxygen Liter Flow Cancelled FiO2 Cancelled Sodium Potassium Chloride Carbon Dioxide Anion Gap BUN Creatinine Est GFR (CKD-EPI 2020) Glucose Calcium Magnesium Ur Random Creatinine 227.93 Ur Random Sodium 16 Random Vancomycin 14.0 02/15/23 02/15/23 05:55 05:55 WBC 14.14 H RBC 4.42 Hgb 13.9 Hct 42.0 MCV 95 MCH 31.4 MCHC 33.1 RDW 12.4 Plt Count 279 MPV 11.6 H Immature Gran % 0.6 Neutrophils % 85.3 Lymphocytes % 6.6 Monocytes % 7.1 Eosinophils % 0.1 Basophils % 0.3 Nucleated RBC % 0.0 Absolute Neutrophils 12.06 H Absolute Lymphocytes 0.93 L Absolute Monocytes 1.00 H Absolute Eosinophils 0.01 Absolute Basophils 0.04 ABG Sample Site ABG pH ABG pCO2 ABG pO2 ABG HCO3 ABG Total CO2 ABG O2 Saturation ABG Base Excess Oxygen Liter Flow FiO2 Sodium 137 Potassium 3.8 Chloride 100 Carbon Dioxide 30.4 Anion Gap 6.6 BUN 25 H Creatinine 1.4 H D Est GFR (CKD-EPI 2020) 52.41 Glucose 120 H Calcium 9.5 Magnesium 2.1 Ur Random Creatinine Ur Random Sodium Random Vancomycin Multi-Disciplinary Checklist Lines/Tubes CENTRAL LINE: no SON: yes, Son Day#: 2 Note: getting discontinued today ENDOTRACHEAL TUBE: no ICU Maintenance GLUCOSE 140-180mg/dL: yes NUTRITION AT GOAL: yes PRESSURE ULCER: no RESTRAINTS: no ANTIBIOTICS(if yes, consider Stewardship): Yes Social Issues FAMILY UPDATED: yes PT/OT: yes GOALS/DISPOSITION/HAND ALMOND BLANCHER: yes CODE STATUS: DNR/DNI Prophylaxis DVT PROPHYLAXIS: no Reason/Intervention: on therapeutic anticoagulation GI PROPHYLAXIS: yes, Indication: on steroids Time Spent with Patient Time Spent with Patient: 35-49 minutes Time was spent: preparing to see the patient(eg.review tests), obtaining and/or reviewing separately otained hiistory, ordering medications,tests, procedures, referring, communicating with other health nursing care partner, indepentently interpreting results, counseling the patient and care coordination
--- NOTE | 2023-02-15 15:16 | CHAPLAIN ---
I visited with Darion and his Polly today. Darion is planning on going home on Hospice tomorrow. I brought Darion a prayer shawl and let him know that he, and any family member, can request a visit from the learning consultant, Rev. Mirtha Canales. Polly said they had been told about her. Because he has a trach, Darion worked hard using the white board to let me know that Domitila, who takes the patients' food orders, read lips really well. Darion appears to have strong support from family members. A granddaughter and great granddaughter were set to arrive momentarily from [place] and Polly and Darion were trying to think of where they could take the great granddaugther to see snow.
--- NOTE | 2023-02-15 15:29 | PDOC.CMPRO ---
- If Service Date Differs Date of service: 02/15/23 Time of Service: 15:29 Care Management Progress Note S/O: MAYUR communicated with [place], Hospice today, and coordinated his discharge plan. His equipment including a hospital bed, O2, and a home suctioning system will be delivered by noon on 02/16/23. He will transport home via EMS, coordinated by MAYUR. The hospice provider sent in the orders for the comfort kit, and hospice will admit him to services tomorrow afternoon. Darion was lying in bed when CM met with him. CM reviewed the plan regarding Darion returning home and admitting to Hospice tomorrow, after the equipment arrives, and he is agreeable to this plan. CM also reviewed the plan with his , Polly, who is agreeable to the plan. CM will continue to support Darion and his family with discharge planning considerations. A: Darion is a 77 year old male admitted to [facility] on 02/14/23 for right lower lobe pneumonia, hypoxic respiratory failure. P: Darion will return home with hospice support. Currently, his pneumonia is being treated. His transportation will be EMS, coordinated by MAYUR. He will follow up with his discharge plan of care. CM will continue to follow.
[2023-02-15 20:10] LABS: Legionella Ag Detection Urine Negative (Negative)
[2023-02-15] MEDS: guaiFENesin 600 MG TABCR 1200 MG PO (20:45)
[2023-02-15] MEDS: Simvastatin 20 MG TAB PO (21:35)
[2023-02-16] VITALS (45 sets, daily range): BP systolic 99–146; BP diastolic 53–72; PULSE 56–175; RESP 4–30; TEMP 34–37; O2SAT 88–95
[2023-02-16] MEDS: VANCOMYCIN/WATER (PEG) 1 GM/200 ML BAG IV (03:55)
[2023-02-16] MEDS: CEFEPIME 1 GM in Normal Saline 50 ML IVPB (05:52)
[2023-02-16] MEDS: DOXYCYCLINE 100 MG in Normal Saline 100 ML IVPB (06:26)
[2023-02-16 06:40] LABS: Abs Immature Grans 0.06 10^3/uL (0.0-0.06); Absolute Basophil Count 0.03 10^3/uL (0.0-0.2); Absolute Eosinophil Count 0.03 10^3/uL (0.0-0.7); Absolute Lymphocyte Count 2.27 10^3/uL (1.2-3.4); Absolute Monocyte Count 0.85 10^3/uL (0.1-0.8); Absolute Neutrophil Count 6.51 10^3/uL (1.2-6.7); Basophils % 0.3; Eosinophils % 0.3; HCT 43.5 % (40.0-50.0); HGB 14.1 g/dL (13.5-17.5); Immature Grans % 0.6; Lymphocytes % 23.3; MCH 31.4 pg (27.0-33.0); MCHC 32.4 % (32.0-36.0); MCV 97 fL (80-95); MPV 11.5 fL (8.0-11.0); Monocytes % 8.7; Neutrophils % 66.8; Platelet Count 276 10^3/uL (130-400); RBC 4.49 10^6/uL (4.36-5.78); RDW 12.8 % (11.8-14.1); RDW-SD 45.7 fL; WBC 9.75 10^3/uL (4.4-10.8)
[2023-02-16 06:51] LABS: Anion Gap 2.9 mmol/L (3-11); BUN 25 mg/dL (7-18); CO2 32.1 mmol/L (21.0-32.0); CREATININE 1.3 mg/dL (0.70-1.30); Calcium 9.9 mg/dL (8.5-10.1); Chloride 104 mmol/L (98-107); Estimated GFR 57.29 (mL/min/1.73m2); Glucose 102 mg/dL (74-106); Magnesium 1.9 mg/dL (1.8-2.4); Sodium 139 mmol/L (136-145)
[2023-02-16] MEDS: Albuterol/Ipratropium 3 ML UPD VIAL UPD ×2 (09:05→12:04)
[2023-02-16] MEDS: Normal Saline Flush 10 ML SYR IVP ×2 (09:22→13:50)
[2023-02-16] MEDS: methylPREDNISolone SUCC 40 MG VIAL IVP (09:22)
[2023-02-16] MEDS: Omeprazole 20 MG CAPCR 40 MG PO (09:23)
[2023-02-16] MEDS: Midodrine 2.5 MG TAB 5 MG PO (09:23)
[2023-02-16] MEDS: Fludrocortisone 0.1 MG TAB PO (09:23)
[2023-02-16] MEDS: Apixaban 5 MG TAB PO (09:24)
[2023-02-16] MEDS: guaiFENesin 600 MG TABCR 1200 MG PO (09:24)
[2023-02-16] MEDS: Citalopram 20 MG TAB PO (09:24)
[2023-02-16] MEDS: Budesonide 0.5 MG/2 ML UPD VIAL UPD (09:25)
--- NOTE | 2023-02-16 11:02 | DSE_ITS ---
Date of service: 02/16/23 Time of Service: 11:02 DS: Diagnosis Discharge Diagnosis (1) Acute respiratory failure with hypoxia: Status: Acute Asessment and Plan: Patient was treated for acute hypoxic respiratory failure secondary to pneumonia in setting of COPD/asthma overlap and recent tracheostomy for laryngeal cancer. He was originally treated w/ Zosyn and Vancomycin and this was changed to Cefep noemy and Doxycycline. However upon discharge he will take Augmentin 500 mg tid and levaquin 750 mg daily x 7 days. (2) Hypotension: Status: Resolved Asessment and Plan: patient presented w/ hypotension which was resolved with iv fluids and the addition of midodrine and fludrocortisone. (3) Pneumonia: Status: Acute Asessment and Plan: CXR did not show any acute pulmonary findings however CT of the chest demonstrated the following: IMPRESSION: 1. Right basilar infiltrate and small right pleural effusion. 2. Tracheostomy tube in place. 3. Cholelithiasis.? No blood cultures were obtained. urine culture was done and showed no growth. MRSA screen was obtained and is still pending. Patient was treated initially w/ zosyn and vancomycin as noted above and was changed to cefepime and doxycycline. He was discharged w/ 7 days of Levaquin and Augmentin. (4) Laryngeal carcinoma: Status: Chronic Asessment and Plan: Palliative care was consulted and met with him and his family. Patient opted for return home as soon as possible. He still wanted antibiotics treatment for his pneumonia but decided against any feeding tubes, invasive central lines for pressors or iv access and wanted to return home on hospice. He was discharged home w/ consult for hospice to assume his care upon return home. RT worked w/ hospice nursing to ensure that he has adequate pulmonary supplies to manage his tracheostomy. (5) Asthma-COPD overlap syndrome: Status: Chronic (6) PAF (paroxysmal atrial fibrillation): Status: Chronic (7) RICCARDO (acute kidney injury): Status: Resolved (8) Discharge planning issues: Status: Acute Asessment and Plan: patient dc home on hospice care. Discharge Plan Disposition Patient Disposition: Home W/Hospice Services Condition: Poor Discharge Details Reason For Visit: Right Lower Lobe Pneumonia, Hypoxic Resperatory Fa Admit Date/Time: 02/14/23 02:47 Admit Provider: Stoney Pierre Attending Provider: Stoney Pierre [facility] Hospital Course: 77-year-old male with a history of COPD, prediabetes, PAF, hypertension, laryngeal carcinoma who underwent recent tracheostomy performed at [facility] and was just discharged for 5 days ago. He presented to emergency department with increasing shortness of breath hypoxemia and evaluation emergency department revealed right lower lobe pneumonia. Patient is currently on metoprolol and Eliquis for his atrial fibrillation. Patient was found to be septic with hypotension and tachycardia on admission. He was placed on Zosyn vancomycin and doxycycline. Tracheostomy required frequent suctioning he required a tracheostomy oxygen mask and was given IV Solu-Medrol and neb aerosol treatments. Hypotension was treated with IV fluids as well as the addition of midodrine and Florinef. Pulmonary consultation was obtained with Dr. Amarilis Hammond and palliative care consult was obtained with nurse practitioner Gabriela Arias. And counts reviewed and completed C.O.L.S.T. form with the patient identifying his Polly Gerber is his healthcare agent and COVID agents include his daughters Sydney and Sujey. Patient had a previous hospice consult. Palliative care worked with hospice to obtain transfer home as soon as possible with delivery of home oxygen equipment suctioning hospital bed. Hospice will provide home comfort care package including narcotic analgesics and lorazepam as needed for anxiety. Dr. Hammond discontinued his inhalers and sent for home treatment with Pulmicort, Brovana, Yeupelri nebulizers solutions for home use. Patient will be sent home w/ flexible trach suction catheter and already has a home suction unit for his family to obtain airway clearance. R.T. coordinated w/ hospice to make sure that the family has adequate pulmonary equiptment. Patient will be discharged home on a 7-day course of Levaquin and Augmentin. Home Meds and New Rx's Prescriptions: New amoxicillin-pot clavulanate [Augmentin] 250-62.5 mg/5 mL suspension for reconstitution 10 ml PO TID 7 Days Qty: 210 0RF levofloxacin 250 mg/10 mL solution 750 mg PO Q24H 7 Days Qty: 210 0RF midodrine 2.5 mg Tablet 5 mg PO TID Qty: 45 0RF fludrocortisone 0.1 mg Tablet 0.1 mg PO DAILY Qty: 15 0RF Continued albuterol sulfate 2.5 mg /3 mL (0.083 %) solution for nebulization 2.5 mg inhalation DIRECTED PRN (Reason: shortness of breath or wheezing) Qty: 540 12RF Rx Instructions: Twice daily and as needed for shortness of breath (DME) CPAP 0 .Route .MEDSUPPLY budesonide 0.5 mg/2 mL suspension for nebulization 0.5 mg inhalation BID Qty: 360 4RF Rx Instructions: Rinse mouth after use arformoterol [Brovana] 15 mcg/2 mL solution for nebulization 2 ml inhalation BID Qty: 340 4RF Yupelri 175 mcg/3 mL solution for nebulization 175 mcg inhalation DAILY Qty: 270 4RF ipratropium-albuterol 0.5 mg-3 mg(2.5 mg base)/3 mL solution for nebulization 3 ml inhalation Q4H PRN (Reason: wheezing) Qty: 540 4RF acetaminophen 650 mg suppository 650 mg CA Q6H PRN (Reason: fever, mild pain) Qty: 6 0RF Rx Instructions: Hospice Patient hyoscyamine sulfate 0.125 mg tablet,disintegrating 0.125 - 0.25 mg PO Q4H PRN (Reason: secretions) Qty: 24 0RF Rx Instructions: Hospice Patient haloperidol lactate 2 mg/mL concentrate 1 mg PO Q6H PRN (Reason: agitation) Qty: 15 0RF Rx Instructions: Hospice Patient morphine concentrate 100 mg/5 mL (20 mg/mL) solution 5 - 20 mg PO Q1-4H MDD 5 mL PRN (Reason: moderate to severe pain or shortness of breath) Qty: 30 0RF Rx Instructions: Hospice Patient prochlorperazine maleate 10 mg tablet 10 mg PO Q6H PRN (Reason: nausea and vomiting) Qty: 6 0RF Rx Instructions: Hospice Patient lorazepam 1 mg tablet 1 mg PO Q4H PRN (Reason: anxiety, QUEZADA or nausea) Qty: 6 5RF Rx Instructions: Hospice Patient bisacodyl [Dulcolax (bisacodyl)] 10 mg suppository 10 mg CA daily PRN (Reason: constipation) Qty: 2 0RF Rx Instructions: Hospice Patient Insert 1 supp CA Daily PRN constipation (no BM in 3 days) omeprazole [Prilosec] 40 MG capsule,delayed release(DR/EC) 40 mg PO QAM guaifenesin [Mucus Relief ER] 600 mg Tablet Extended Release 12hr 600 mg PO BID Qty: 20 0RF Eliquis 5 mg tablet 5 mg PO BID Patient Comments: TAKE ONE TABLET BY MOUTH TWICE A DAY citalopram 20 mg tablet 20 mg PO DAILY Patient Comments: Take 1 tablet by mouth every night Discontinued simvastatin 20 MG tablet 20 mg PO HS lisinopril 30 MG tablet 30 mg PO DAILY AM metoprolol succinate 50 mg tablet extended release 24 hr 50 mg PO DAILY Patient Comments: 1 tablet by mouth once a day Discharge Instructions Activity:: Activity as Tolerated Equipment/Supplies:: resp. equpt. per hospice Diet:: As Tolerated Discharge Orders Discharge Orders: Discharge Order (Routine); Ordered 02/16/23 Ordered By: Julio Cesar Gonzalez Discharge Data Discharge Date/Time-TO BE ENTERED AT DEPARTURE: 02/16/23 14:00 Discharge Comment: ambulance home DS: Summary Summary Time spent discussing smoking cessation with patient: 3 to 10 minutes Time Spent with Patient providing and/or coordinating discharge services: Less than 30 minutes Specific discharge activities: Interview/exam of patient; review of discharge instructions, completion of prescriptions/discharge instructions; discussion w/ nursing and CM; documentation of hospital visit Status at Discharge Functional status at discharge: bed bound Overall status at discharge: patient is progressing back to baseline Mental Status: mental status grossly normal Speech and Movement: speech and movement normal Mood: congruent mood Affect: normal affect Exam Narrative Exam Narrative: Morbidly obese male lying in bed in upright position he is alert responsive and seems to be oriented. He is visiting with his family. He is looking forward to returning home. Lungs with coarse rhonchi particularly in the right diffuse end expiratory wheezes Heart is regular rate rhythm Abdomen obese soft nontender Psych Mental Status: mental status grossly normal Speech and Movement: speech and movement normal Mood: congruent mood Affect: normal affect DS: Data Vitals/I&O Vitals and I&O: Vital Signs Temperature 36.2 C L 02/16/23 04:26 Temperature Source Temporal Artery Scan 02/16/23 04:26 Pulse 175 H 02/16/23 10:02 Pulse 71 02/16/23 10:15 Respiratory Rate 20 02/16/23 10:15 Respiratory Effort Normal, Non-Labored, Short of Breath 02/16/23 08:26 Respiratory Depth Normal 02/16/23 08:26 Respiratory Pattern Normal 02/16/23 08:26 Blood Pressure 99/58 L 02/16/23 10:02 Blood Pressure Mean 69 02/16/23 10:02 Blood Pressure Position Right Lateral 02/16/23 04:26 Pulse Oximetry 93 02/16/23 10:15 Oxygen Delivery Method High Flow System 02/16/23 09:05 Oxygen Flow Rate 30 02/16/23 10:57 Fraction of Inspired Oxygen (FIO2) 35 02/16/23 10:57 Pain Level 0 02/16/23 08:26 Comment RN notified 02/15/23 23:15 Intake & Output 02/15/23 02/15/23 02/16/23 11:59 23:59 11:59 Intake Total 350 / 1030 680 / 1030 990 / 990 Output Total 270 / 695 425 / 695 400 / 400 Balance 80 / 335 255 / 335 590 / 590 Weight 139.1 kg 138.2 kg Intake: IV 350 / 550 200 / 550 450 / 450 Oral 0 / 480 480 / 480 540 / 540 Output: Urine 270 / 695 425 / 695 400 / 400 Other: Urine Color Dark Shamika Brown Brown Urine Appearance Clear Clear Urine Odor None Comment Indwelling Quesada catheter. pt made an attempt to us eht eurinal but most of the urine ended up in the bed pt made an attempt to us eht eurinal but most of the urine ended up in the bed Voiding Methods Urinal Data Completed and Pending Labs on day of discharge: Labs from last 24 hours 02/16/23 02/16/23 02/14/23 05:50 05:50 22:45 WBC 9.75 RBC 4.49 Hgb 14.1 Hct 43.5 MCV 97 H MCH 31.4 MCHC 32.4 RDW 12.8 Plt Count 276 MPV 11.5 H Immature Gran % 0.6 Neutrophils % 66.8 Lymphocytes % 23.3 Monocytes % 8.7 Eosinophils % 0.3 Basophils % 0.3 Nucleated RBC % 0.0 Absolute Neutrophils 6.51 Absolute Lymphocytes 2.27 Absolute Monocytes 0.85 H Absolute Eosinophils 0.03 Absolute Basophils 0.03 ABG Sample Site ABG pH ABG pCO2 ABG pO2 ABG HCO3 ABG Total CO2 ABG O2 Saturation ABG Base Excess Oxygen Liter Flow FiO2 Sodium 139 Potassium 4.0 Chloride 104 Carbon Dioxide 32.1 H Anion Gap 2.9 L BUN 25 H Creatinine 1.3 Est GFR (CKD-EPI 2020) 57.29 Glucose 102 Calcium 9.9 Magnesium 1.9 Urine Legionella Ag Negative 02/14/23 00:36 WBC RBC Hgb Hct MCV MCH MCHC RDW Plt Count MPV Immature Gran % Neutrophils % Lymphocytes % Monocytes % Eosinophils % Basophils % Nucleated RBC % Absolute Neutrophils Absolute Lymphocytes Absolute Monocytes Absolute Eosinophils Absolute Basophils ABG Sample Site Cancelled ABG pH Cancelled ABG pCO2 Cancelled ABG pO2 Cancelled ABG HCO3 Cancelled ABG Total CO2 Cancelled ABG O2 Saturation Cancelled ABG Base Excess Cancelled Oxygen Liter Flow Cancelled FiO2 Cancelled Sodium Potassium Chloride Carbon Dioxide Anion Gap BUN Creatinine Est GFR (CKD-EPI 2020) Glucose Calcium Magnesium Urine Legionella Ag 02/14/23 22:45 Nose MRSA Screen - Pending Preliminary micro results at discharge 02/14/23 22:45 MRSA Screen - Pending Nose PFSH All Active Problems (Updated 02/16/23 @ 20:58 by Julio Cesar Gonzalez MD) Palliative care encounter (Acute) Advance care planning (Acute) Physician orders for life-sustaining treatment (POLST) form indicates patient wish for [id number] status (Acute) Encounter for hospice care discussion (Acute) Respiratory failure with hypoxia and hypercapnia (Acute) Discharge planning issues (Acute) DVT prophylaxis (Acute) Acute dehydration (Acute) PAF (paroxysmal atrial fibrillation) (Chronic) Acute respiratory failure with hypoxia (Acute) Pneumonia (Acute) Acute respiratory distress (Acute) Dyspnea (Acute) Laryngeal carcinoma (Chronic) Asthma-COPD overlap syndrome (Chronic) Former smoker (Chronic) Laryngeal dystonia (Acute) Morbid obesity (Chronic) COPD exacerbation (Acute) BPH (benign prostatic hyperplasia) (Chronic) Chronic low back pain (Chronic) Nocturia (Acute) Hyperlipidemia (Acute) Sleep apnea, obstructive (Chronic) Chronic GERD (Acute) Hoarseness (Chronic) COPD (chronic obstructive pulmonary disease) (Acute) Hypertensive disorder (Chronic) Cancer (Acute) Larynx Alcohol abuse (Chronic) Panic disorder (Acute) Obesity (Chronic) Prediabetes (Chronic) Lower back pain (Acute) Urinary incontinence (Acute) Medical History History of BPH Family History Father Lung disease Cancer Social History Smoking/Tobacco Use Status: Former Tobacco Use Quit Date: 10/24/94 Smoking risk assessment performed?: Yes Alcohol Intake: current Alcohol Intake frequency: holidays/special occasions only Drug use: Never Substance use type: does not use Do you feel safe at home: Yes Do you feel safe in your relationship?: Yes Time Spent with Patient Time Spent with Patient: <45 minutes Time was spent: preparing to see the patient(eg.review tests), ordering medications,tests, procedures, referring, communicating with other health pediatric critical care nurse, indepentently interpreting results and care coordination
[2023-02-16] MEDS: MORPHine 2 MG/ML SYR IVP (13:50)
--- NOTE | 2023-02-16 14:27 | CMDISCH_ITS ---
- If Service Date Differs Date of service: 02/16/23 Time of Service: 14:27 LACE Index Scoring Tool - Questions: Length of Stay (in days): 2 Acuity (Admit via E.D.?): Yes Comorbidities: Chronic Pulmonary Disease, Any Tumor E.D. Visits: 2 - Answers: Total Score: 12 Risk of Readmission: High Risk Care Management Discharge Reason for Hospitalization: Right lower lobe pneumonia, hypoxic respiratory failure Discharge Plan: Darion returned home today with a plan for hospice admission this afternoon at home. He was transported via [facility], coordinated by CM. His Polly was present for his discharge, and was agreeable with the plan, and very appreciative of the care he received at [facility]. His hospice equipment was delivered before noon today, and planned to meet him at his house by 2pm. He will be closely followed by the hospice providers. Darion was very happy to be going home. Patient/Family Education Needs: Review discharge instructions and limitations, as well as expectations for hospice support. Services Needed at Discharge: Home Health Care Services (Hospice admission today)
--- NOTE | 2023-02-16 15:17 | PHA.REVIEW2 ---
Pharmacy Admission Review - Admission Clinical Review (Last Reviewed 02/16/23 @ 11:02 by Julio Cesar Gonzalez MD) Palliative care encounter (Acute) Advance care planning (Acute) Physician orders for life-sustaining treatment (POLST) form indicates patient wish for [id number] status (Acute) Encounter for hospice care discussion (Acute) Respiratory failure with hypoxia and hypercapnia (Acute) Discharge planning issues (Acute) DVT prophylaxis (Acute) RICCARDO (acute kidney injury) (Acute) Acute dehydration (Acute) Acute respiratory failure with hypoxia (Acute) Pneumonia (Acute) Acute respiratory distress (Acute) Dyspnea (Acute) COPD (chronic obstructive pulmonary disease) (Acute) Panic disorder (Acute) twisted tea Allergy (Severe, Uncoded 01/19/23 15:52) Hives Height 5 ft 10 in Weight 138.2 kg - Renal Dosing Renal Dosing: BUN 25 mg/dL (7-18) H 02/16/23 05:50 Creatinine 1.3 mg/dL (0.70-1.30) 02/16/23 05:50 Medications needing adjustments: Reviewed List of meds needing interventions: eCrCl 68 ml/min -- cefepime was originally renally adjusted due to RICCARDO which has pretty much resolved; notified MD about readjusting dose back to 2 gm q8h but pt is to be transitioned to PO today - Anticoagulation Anticoagulation: Hgb 14.1 g/dL (13.5-17.5) 02/16/23 05:50 Hct 43.5 % (40.0-50.0) 02/16/23 05:50 Plt Count 276 10^3/uL (130-400) 02/16/23 05:50 Creatinine 1.3 mg/dL (0.70-1.30) 02/16/23 05:50 Therapeutic Anticoagulation: Reviewed Medications: Apixaban - Opiate Usage Evaluate Pain Scale/Pains Meds: N/A - Relevant Labs Sodium 139 mmol/L (136-145) 02/16/23 05:50 Potassium 4.0 mmol/L (3.5-5.1) 02/16/23 05:50 Chloride 104 mmol/L (98-107) 02/16/23 05:50 Magnesium 1.9 mg/dL (1.8-2.4) 02/16/23 05:50 Electrolytes, C-Reactive P, ESR: Reviewed - DM Control DM Control: Glucose 102 mg/dL (74-106) 02/16/23 05:50 Hemoglobin A1c 6.1 % (<5.7) H 02/14/23 05:50 Finger Stick Blood Glucose 120 Finger Stick Blood Glucose 120 Finger Stick Blood Glucose 120 Finger Stick Blood Glucose 93 Finger Stick Blood Glucose 93 Finger Stick Blood Glucose 93 DM Control: Reviewed (aspart per SS only (NIDDM)) - Cardiac Review Cardiac Review: Troponin I < 50 ng/L (<or=60) 02/14/23 00:25 NT-Pro-B Natriuret Pep 245 pg/mL (<300) 02/14/23 00:25 BP, HR, EF%: Reviewed - Qtc Review QTc: Reviewed If Elevated, List meds needing intervention: QTc 457 on admission - IV to PO Switch IV Medications: Reviewed - Home Meds Home Med List reviewed: Reviewed Relevent Home Meds Not ordered & why?: all ordered - Current meds Current Medication Order Review: Reviewed (Cefepime + doxy + vancomycin will be transition to PO augmentin + levaquin today/upon disharge)
[2023-02-16 23:32] LABS: Streptococcus Pneumoniae Ag, U Negative (Negative)
== END 2023-02-16 14:00 | disposition hospice, home (50) | DRG 193 ==
LOC: ER 03:02 → ICU 03:13
PROVIDERS: Internal Medicine; Admitting Provider Family Medicine; Emergency Provider Student in an Organized Health Care Education/Training Program; PCP Nurse Practitioner Family; Visit Provider Family Medicine
DX: J18.9 Pneumonia, unspecified organism (principal); J96.01 Acute respiratory failure with hypoxia; J96.02 Acute respiratory failure with hypercapnia; J44.1 Chronic obstructive pulmonary disease with (acute) exacerbation; Z68.41 Body mass index [BMI] 40.0-44.9, adult; N17.9 Acute kidney failure, unspecified; J44.0 Chronic obstructive pulmonary disease with (acute) lower respiratory infection; E86.0 Dehydration; I48.0 Paroxysmal atrial fibrillation; K21.9 Gastro-esophageal reflux disease without esophagitis; R73.03 Prediabetes; I10 Essential (primary) hypertension; Z79.01 Long term (current) use of anticoagulants; I48.91 Unspecified atrial fibrillation; C32.9 Malignant neoplasm of larynx, unspecified; Z93.0 Tracheostomy status; Z87.891 Personal history of nicotine dependence; E66.01 Morbid (severe) obesity due to excess calories; G89.29 Other chronic pain; M54.50 Low back pain, unspecified; F10.10 Alcohol abuse, uncomplicated; F41.0 Panic disorder [episodic paroxysmal anxiety]; R32 Unspecified urinary incontinence; N40.1 Benign prostatic hyperplasia with lower urinary tract symptoms; R35.1 Nocturia; E78.5 Hyperlipidemia, unspecified; R49.0 Dysphonia; Z66 Do not resuscitate; I95.9 Hypotension, unspecified
CPT/HCPCS: 36415; 71250; 76770; 80048; 80053; 82550; 82805; 85027; 87081; 87449; 87637; 93005; 93306; 96365; 96368; 96375; 99285; 71045; 80202; 81003; 81015; 82565; 83036; 83605; 83735; 83880; 84300; 84443; 84484; 85025; 85379; 87086; 87899; 93010; 94640; 94667; 94668; 94760; 99223; 99233; 99239; J0456; J2060; J2270; J2543; J2930; J7620; J7626